=== PATIENT | male | born 1950 | race Caucasian/White ===

== ENCOUNTER 2019-10-14 08:43 | Outpatient (CLI) | payer MEDICARE, SELFPAY ==
--- NOTE | 2019-10-14 09:00 | NEURO_ITS ---
PATIENT NUMBER: [id number] DATE OF SERVICE: 10/14/2019 IMPRESSION: Patient complains of nocturnal paresthesia and numbness of hands. # Bilateral carpal tunnel syndrome of severe degree, left worse than right # Subtle evolving left ulnar neuropathy # Normal needle/EMG exam Nerve Conduction Studies Anti Sensory Summary Table Stim Site NR Peak (ms) P-T Amp (?V) Site1 Site2 Delta-P (ms) Dist (cm) Louie (m/s) Left Median Anti Sensory (2-3nd Digit) Wrist 4.3 11.1 Wrist 2-3nd Digit 4.3 14.0 33 Wrist 4.5 8.6 Wrist 2-3nd Digit 4.3 14.0 33 Right Median Anti Sensory (2-3nd Digit) Wrist 8.1 11.7 Wrist 2-3nd Digit 8.1 14.0 17 Wrist 8.9 22.1 Wrist 2-3nd Digit 8.1 14.0 17 Left Radial Anti Sensory (Base 1st Digit) Wrist 2.6 9.5 Wrist Base 1st Digit 2.6 0.0 Right Radial Anti Sensory (Base 1st Digit) Wrist 3.3 10.0 Wrist Base 1st Digit 3.3 0.0 Left Ulnar Anti Sensory (5th Digit) Wrist 3.9 23.6 Wrist 5th Digit 3.9 14.0 36 Right Ulnar Anti Sensory (5th Digit) Wrist 3.3 27.8 Wrist 5th Digit 3.3 14.0 42 Motor Summary Table Stim Site NR Onset (ms) O-P Amp (mV) Site1 Site2 Delta-0 (ms) Dist (cm) Louie (m/s) Left Median Motor (Abd Poll Brev) Wrist 9.6 0.8 Elbow Wrist 4.8 33.0 69 Elbow 4.8 0.6 Right Median Motor (Abd Poll Brev) Wrist 5.9 3.4 Elbow Wrist 6.5 30.0 46 Elbow 12.4 2.9 Left Peroneal Motor (Vastus Med) Ankle 4.7 1.5 Popit Ankle 6.0 31.0 52 Popit 10.7 2.3 Left Ulnar Motor (Abd Dig Minimi) Wrist 2.8 7.1 A Elbow Wrist 6.5 31.0 48 A Elbow 9.3 6.5 B Elbow Wrist 4.9 25.0 51 B Elbow 7.7 4.9 Right Ulnar Motor (Abd Dig Minimi) Wrist 3.2 4.2 A Elbow Wrist 6.2 32.0 52 A Elbow 9.4 3.2 F Wave Studies NR F-Lat (ms) L-R F-Lat (ms) Left Median (Mrkrs) (Abd Poll Brev) 25.67 3.98 Right Median (Mrkrs) (Abd Poll Brev) 29.65 3.98 Left Ulnar (Mrkrs) (Abd Dig Min) 32.97 6.65 Right Ulnar (Mrkrs) (Abd Dig Min) 26.31 6.65 EMG Side Muscle Nerve Root Ins Act Fibs Amp Dur Recrt Comment Right 1stDorInt Ulnar C8-T1 Nml Nml Nml Nml Nml Right Ext Indicis Radial (Post Int) C7-8 Nml Nml Nml Nml Nml Right Ext Digitorum Radial (Post Int) C7-8 Nml Nml Nml Nml Nml Right BrachioRad Radial C5-6 Nml Nml Nml Nml Nml Right PronatorTeres Median C6-7 Nml Nml Nml Nml Nml Right Abd Poll Brev Median C8-T1 Nml Nml Nml Nml Nml Right ABD Dig Min Ulnar C8-T1 Nml Nml Nml Nml Nml Left 1stDorInt Ulnar C8-T1 Nml Nml Nml Nml Nml Left ABD Dig Min Ulnar C8-T1 Nml Nml Nml Nml Nml Left Ext Indicis Radial (Post Int) C7-8 Nml Nml Nml Nml Nml Left Ext Digitorum Radial (Post Int) C7-8 Nml Nml Nml Nml Nml Left BrachioRad Radial C5-6 Nml Nml Nml Nml Nml Left PronatorTeres Median C6-7 Nml Nml Nml Nml Nml Left Abd Poll Brev Median C8-T1 Nml Nml Nml Nml Nml MTDD
== END 2019-10-14 08:44 | disposition home or self-care (01) ==
PROVIDERS: PCP Emergency Medicine; Visit Provider Psychiatry & Neurology Neurology
DX: R20.2 Paresthesia of skin (principal); G56.03 Carpal tunnel syndrome, bilateral upper limbs
CPT/HCPCS: 95886; 95911

== ENCOUNTER 2019-10-23 11:03 | Outpatient (CLI) | payer MEDICARE, SELFPAY ==
--- NOTE | ~2019-10-23 | US_ITS ---
EXAMINATION: US renal BI EXAM DATE: 10/23/2019 11:59 INDICATION: Kidney disease. TECHNIQUE: Multiple grayscale and Doppler images of the kidneys were obtained (by a technologist who performed the scan) and subsequently reviewed. Comparison is made to prior examination from 8. Correlation was made with CT scan 01/16/2018, 07/15/2018. FINDINGS: Right kidney: There is normal contour and echogenicity. It measures 11.1 x 6.1 x 5.3 centimeters. Fo kole region was measured which is isoechoic to the renal parenchyma, probably normal parenchymal tissu e with adjacent cyst measuring 1.3 cm. There is peripherally calcified lesion measuring 1.8 cm, also likely cyst previously imaged. There is no hydronephrosis. Left kidney: There is normal contour and echogenicity. It measures 10.9 x 6.5 x 6.1 centimeters. Th ere are no focal renal lesions identified. There is no hydronephrosis. Bladder unremarkable. Prostate measures up to 4.2 cm. IMPRESSION: 1. Right renal lesions likely cysts. Reviewed, dictated and finalized at location A. ECT MANAGER/DESIGN MANAGER
== END 2019-10-23 11:04 | disposition home or self-care (01) ==
LOC: ANHIMG 11:17
PROVIDERS: Visit Provider Family Medicine
DX: N28.9 Disorder of kidney and ureter, unspecified (principal); N08 Glomerular disorders in diseases classified elsewhere; N28.1 Cyst of kidney, acquired
CPT/HCPCS: 76775

== ENCOUNTER 2020-02-24 09:53 | Outpatient (CLI) | payer MEDICARE, SELFPAY ==
--- NOTE | 2020-02-24 11:00 | NEURO_ITS ---
Patient Number: [id number] Impression: # Complains of numbness of feet. # Neuropathy involving lower extremities. # Needle/EMG exam revealed neurogenic changes in bilateral EDB. # Clinical correlation recommended. Nerve Conduction Studies Anti Sensory Summary Table Stim Site NR Peak (ms) P-T Amp (?V) Site1 Site2 Delta-P (ms) Dist (cm) Louie (m/s) Left Sup Fibular Anti Sensory (Ant Lat Mall) 14 cm 4.1 16.1 14 cm Ant Lat Mall 4.1 16.0 39 Right Sup Fibular Anti Sensory (Ant Lat Mall) 14 cm 4.2 12.7 14 cm Ant Lat Mall 4.2 16.0 38 Left Sural Anti Sensory (Lat Mall) Calf 4.0 10.9 Calf Lat Mall 4.0 16.0 40 Right Sural Anti Sensory (Lat Mall) Calf 4.5 15.4 Calf Lat Mall 4.5 16.0 36 Motor Summary Table Stim Site NR Onset (ms) O-P Amp (mV) Site1 Site2 Delta-0 (ms) Dist (cm) Louie (m/s) Left Peroneal Motor (Vastus Med) Ankle 4.7 1.9 Popit Ankle 11.1 43.0 39 Popit 15.8 1.5 Right Peroneal Motor (Vastus Med) Ankle 4.7 2.0 Popit Ankle 10.2 40.0 39 Popit 14.9 1.7 Left Tibial Motor (Abd Sorenson Brev) Ankle 4.7 1.1 Knee Ankle 10.9 46.0 42 Knee 15.6 0.9 Right Tibial Motor (Abd Sorenson Brev) Ankle 4.8 2.9 Knee Ankle 11.4 46.0 40 Knee 16.2 2.1 F Wave Studies NR F-Lat (ms) L-R F-Lat (ms) Left Peroneal (Mrkrs) (EDB) 57.65 0.98 Right Peroneal (Mrkrs) (EDB) 58.63 0.98 Left Tibial (Mrkrs) (Abd Hallucis) 59.54 0.00 Right Tibial (Mrkrs) (Abd Hallucis) 59.54 0.00 EMG Side Muscle Nerve Root Ins Act Fibs Amp Dur Recrt Comment Right AntTibialis Dp Br Fibular L4-5 Nml Nml Nml Nml Nml Right Gastroc Tibial S1-2 Nml Nml Nml Nml Nml Right Fibularis Long Sup Br Fibular L5-S1 Nml Nml Nml Nml Nml Right Flex Dig Long Tibial L5-S2 Nml Nml Nml Nml Nml Right Ext Dig Brev Dp Br Fibular L5, S1 Nml Nml Nml Nml Reduced Left AntTibialis Dp Br Fibular L4-5 Nml Nml Nml Nml Nml Left Gastroc Tibial S1-2 Nml Nml Nml Nml Nml Left Fibularis Long Sup Br Fibular L5-S1 Nml Nml Nml Nml Nml Left Flex Dig Long Tibial L5-S2 Nml Nml Nml Nml Nml Left Ext Dig Brev Dp Br Fibular L5, S1 Nml Nml Nml Nml Reduced Right QuadratusFem QuadFemoris L4-5, S1 Nml Nml Nml Nml Nml Left QuadratusFem QuadFemoris L4-5, S1 Nml Nml Nml Nml Nml MTDD
== END 2020-02-24 09:54 | disposition home or self-care (01) ==
PROVIDERS: PCP Family Medicine; Visit Provider Psychiatry & Neurology Neurology
DX: R20.2 Paresthesia of skin (principal)
CPT/HCPCS: 95886; 95910

== ENCOUNTER 2020-05-13 10:53 | Outpatient (CLI) | payer MEDICARE, SELFPAY | END 2020-05-13 10:54 | disposition home or self-care (01) | LOC: ANHAUDIO 10:54 | PROVIDERS: PCP Family Medicine; Visit Provider Otolaryngology | DX: H90.3 Sensorineural hearing loss, bilateral (principal) | CPT/HCPCS: 92557; 92567 ==

== ENCOUNTER → 2021-02-03 02:29 | Outpatient (CLI) | payer MEDICARE, SELFPAY ==
[2021-02-03 18:15] LABS: SARS-CoV-2 RNA PCR Negative
== END ==
PROVIDERS: PCP Family Medicine; Visit Provider Internal Medicine Gastroenterology
DX: Z01.812 Encounter for preprocedural laboratory examination (principal); Z20.822 Contact with and (suspected) exposure to COVID-19
CPT/HCPCS: C9803; U0003; U0005

== ENCOUNTER 2021-02-06 00:57 | Day surgery (SDC) | payer MEDICARE, SELFPAY ==
[2021-01-24 14:31] VITALS: BMI 29.0
[2021-02-06 11:41] VITALS: BP 126/78; PULSE 55; RESP 18; TEMP 36.7; O2SAT 97
[2021-02-06] MEDS: LACTATED RINGERS 1,000 ML 150 ML IV CONT (11:46)
--- NOTE | 2021-02-06 11:47 | WPDANESEPPF ---
Anes - Initial Pre Proc Eval Procedure: Operation Date: 02/06/21 12:45 Proposed Procedures p Colonoscopy - Tito Britton MD Date/Time: 02/06/21 11:47 Surgeon: Tito Britton MD Pre Op Diagnosis: Occult gi bleed, positive cologuard Patient Data Age: 71 Gender: M Height: 1.85 m Weight: 94.3 kg Last Vital Signs Temp 36.7 C 02/06/21 11:41 Pulse 55 L 02/06/21 11:41 Resp 18 02/06/21 11:41 BP 126/78 02/06/21 11:41 Pulse Ox 97 02/06/21 11:41 Allergies Allergy/AdvReac Type Severity Reaction Status Date / Time No Known Allergies Allergy Mild Verified 02/06/21 11:40 Home Medications Medication Instructions Recorded Confirmed Type amlodipine 10 mg tablet 10 mg PO DAILY tablet 02/08/20 02/06/21 History lisinopril 20 mg tablet 20 mg PO DAILY tablet 02/08/20 02/06/21 History acetaminophen 500 mg capsule 500 mg PO Q6H PRN 06/09/20 02/06/21 History calcium carbonate-vitamin D3 1 tablet PO DAILY 01/24/21 02/06/21 History [Calcium 600 with Vitamin D3] folic acid 1 mg PO DAILY 01/24/21 02/06/21 History rosuvastatin 40 mg PO DAILY 01/24/21 02/06/21 History Patient hx anesthesia problems: none Family hx anesthesia problems: none PMFSH Past Medical History Medical History (Updated 02/06/21 @ 11:51 by Didier Galvan MD) Bilateral high frequency sensorineural hearing loss High blood pressure High cholesterol Surgical History Surgical History History of back surgery History of bladder surgery History of knee surgery Hx of appendectomy Social History Social History Smoking status: Former smoker Tobacco type: cigarettes Smokeless tobacco user: chewing tobacco Alcohol intake: never Substance use type: does not use Gender identity (if verbalized by the patient): Male Spiritual care concerns: No Anes - Eval Final PreProcedure Day of Procedure 02/06/21 11:47 Patient weight: overweight Heart: regular rate and rhythm Lungs: clear to auscultation and normal air movement Airway: Mallampati scale class II Neurological: alert and oriented Last oral intake: >/= 8 hours ASA classification: II Emergent: no Anesthetic plan: proceed Anesthesia type and monitoring: general GIVS Informed Consent: The patient's anesthetic plan and its attendant risks and benefits were discussed with the patient/family/POA. Questions were solicited and answers provided to the satisfaction of the patient/family/POA.
--- NOTE | 2021-02-06 12:35 | PM.HPGS ---
History of Present Illness History of Present Illness Consent: Risks, benefits, and alternatives have been discussed and questions answered. Patient agrees to proceed with procedure. Chief complaint: Occult gi bleed, positive cologuard Narrative: Magdiel Luevano is a 71 year old male here for first colonoscopy, had + cologuard Review of Systems Constitutional: Constitutional: Denies headache(s) and Denies weakness Eyes: Eyes: Denies blurry vision ENT: Reports Normal hearing present, Denies headache(s) and Denies neck pain Cardiovascular: Cardiovascular: Denies chest pain and Denies dyspnea Respiratory: Respiratory: Denies dyspnea Gastrointestinal: Gastrointestinal: Reports no additional gastrointestinal complaints Genitourinary: Genitourinary: Denies dysuria Musculoskeletal: Musculoskeletal: Denies neck pain Integumentary/Breasts: Skin/Breast: Denies dry skin Neurologic: Reports Normal hearing present, Denies headache(s) and Denies weakness Psychiatric: Psychiatric: Denies anxiety Endocrine: Endocrine: Denies change in body appearance Hematologic/Lymphatic: Hematologic/Lymphatic: Denies easy bleeding Allergic/Immunologic: Allergic/Immunologic: Denies urticaria PMFSH Past Medical History Medical History (Updated 02/06/21 @ 12:35 by Tito Britton MD) Bilateral high frequency sensorineural hearing loss High blood pressure High cholesterol Positive colorectal cancer screening using Cologuard test Surgical History Surgical History History of back surgery History of bladder surgery History of knee surgery Hx of appendectomy Social History Social History Smoking status: Former smoker Tobacco type: cigarettes Smokeless tobacco user: chewing tobacco Alcohol intake: never Substance use type: does not use Gender identity (if verbalized by the patient): Male Spiritual care concerns: No Meds Home Medications and Allergies Home Medications Medication Instructions Recorded Confirmed Type amlodipine 10 mg tablet 10 mg PO DAILY tablet 02/08/20 02/06/21 History lisinopril 20 mg tablet 20 mg PO DAILY tablet 02/08/20 02/06/21 History acetaminophen 500 mg capsule 500 mg PO Q6H PRN 06/09/20 02/06/21 History calcium carbonate-vitamin D3 1 tablet PO DAILY 01/24/21 02/06/21 History [Calcium 600 with Vitamin D3] folic acid 1 mg PO DAILY 01/24/21 02/06/21 History rosuvastatin 40 mg PO DAILY 01/24/21 02/06/21 History Allergies Allergy/AdvReac Type Severity Reaction Status Date / Time No Known Allergies Allergy Mild Verified 02/06/21 11:40 Vital Signs Vital Signs - 24 hr 02/06/21 11:41 Temperature 98.1 F Pulse Rate 55 L Respiratory Rate 18 Blood Pressure 126/78 Pulse Oximetry 97 Exam Const: General: comfortable and no acute distress HENMT: General nose exam: Normal nares present Eyes: General: appearance normal, both eyes and all related structures Neck: Neck: no JVD Resp: Auscultation: clear to auscultation bilaterally Cardio: Rate: regular rate Rhythm: regular rhythm GI: Inspection: non-distended GI Palp: Yes Soft to palpation Skin: General skin exam: normal color Neuro: General: gait normal Speech: normal speech Extrem: General: normal to inspection Psych: Mental Status: mental status grossly normal Assessment and Plan Assessment and plan (1) Positive colorectal cancer screening using Cologuard test: Code(s): R19.5 - Other fecal abnormalities Status: Acute Assessment and Plan: colonoscopy
[2021-02-06 13:02] VITALS: BP 97/64; PULSE 52; RESP 16; O2SAT 97
[2021-02-06 13:12] VITALS: BP 112/77; PULSE 54; RESP 20; O2SAT 100
[2021-02-06 13:22] VITALS: BP 122/79; PULSE 56; RESP 22; O2SAT 98
== END 2021-02-06 13:34 | disposition home or self-care (01) ==
PROVIDERS: PCP Family Medicine; Visit Provider Internal Medicine Gastroenterology
PROC: 0DJD8ZZ Inspection of Lower Intestinal Tract, Via Natural or Artificial Opening Endoscopic (ICD-10-PCS; CPT 45378; principal; 2021-02-06 12:45)
DX: R19.5 Other fecal abnormalities (principal); D12.2 Benign neoplasm of ascending colon; D12.3 Benign neoplasm of transverse colon; K63.5 Polyp of colon; K57.30 Diverticulosis of large intestine without perforation or abscess without bleeding; K64.8 Other hemorrhoids; I10 Essential (primary) hypertension; E78.00 Pure hypercholesterolemia, unspecified; Z87.891 Personal history of nicotine dependence
CPT/HCPCS: 45380; 45385; 88305; C9803; J2704; J7120; U0003; U0005

== ENCOUNTER 2021-04-20 11:44 | Outpatient (CLI) | payer MEDICARE, SELFPAY ==
--- NOTE | ~2021-04-20 | XR_ITS ---
XR knee LT 3V 04/20/2021 12:09 Indication: Status post fall downstairs. Procedure: 3 views of the left knee Comparison: No prior studies for comparison. Findings: There is moderate osteoarthritis of the left knee. Moderate joint effusion. No acute fractu re or traumatic malalignment. No significant soft tissue abnormality. No foreign bodies. Impression: 1: Moderate osteoarthritis of the left knee. 2: Moderate joint effusion. Reviewed, dictated and finalized at location A. Impression: 1: Moderate osteoarthritis of the left knee. 2: Moderate joint effusion.
== END 2021-04-20 11:45 | disposition home or self-care (01) ==
LOC: ANHIMG 11:47
PROVIDERS: PCP Internal Medicine; Visit Provider Nurse Practitioner
DX: M17.12 Unilateral primary osteoarthritis, left knee (principal); M25.462 Effusion, left knee
CPT/HCPCS: 73562

== ENCOUNTER 2021-07-11 09:32 | Outpatient (CLI) | payer MEDICARE, SELFPAY ==
--- NOTE | ~2021-07-11 | MR_ITS ---
EXAMINATION: MR cervical spine wo/w con EXAM DATE: 07/11/2021 10:40 INDICATION: G95.9 - Disease of spinal cord, unspecified . TECHNIQUE: Multi-sequential, multiplanar MR images of the cervical spine were obtained without contra st. Axial T2, axial T2 MERGE sequence. Sagittal T1, T2, T2 fat saturation images also obtained. Th ere is no prior study for comparison. FINDINGS: Spinal cord being indented at mid cervical levels without cord edema, no acute cord compre ssion. There is moderate to severe disc disease C4-5 and C6-7, moderate at C3-4 and C5-6. Cervicomedu llary junction is normal in appearance. There are no suspicious marrow signal abnormalities. Paraspin al soft tissue is unremarkable. There is 2 mm retrolisthesis C4 on C5. Level by level evaluation: C2-C3: Disc does not extend beyond the endplate margin. Uncovertebral joint arthropathy: None. Facet joint arthropathy: Mild to moderate right, mild left. Neural foraminal stenosis: Mild right. Central canal stenosis: No stenosis. C3-C4: There is a minimal diffuse disc bulge asymmetric to the right Uncovertebral joint arthropathy: Moderate to severe right, moderate left. Facet joint arthropathy: Moderate to severe right, moderate left. Neural foraminal stenosis: Severe right, moderate left. Central canal stenosis: Mild. C4-C5: There is a mild diffuse disc bulge. Uncovertebral joint arthropathy: Moderate to severe bilateral. Facet joint arthropathy: Moderate bilateral. Neural foraminal stenosis: Severe bilateral, right greater than left. Central canal stenosis: Mild . Central canal measures 7 mm in mid sagittal AP diameter . C5-C6: There is a minimal diffuse disc bulge. Uncovertebral joint arthropathy: Moderate bilateral. Facet joint arthropathy: Moderate bilateral. Neural foraminal stenosis: Mild bilateral. Central canal stenosis: Minimal. C6-C7: There is a mild diffuse disc bulge. Uncovertebral joint arthropathy: Moderate to severe bilateral. Facet joint arthropathy: Moderate bilateral. Neural foraminal stenosis: Mild to moderate left, mild right. Central canal stenosis: Mild. C7-T1: There is a mild diffuse disc bulge. Uncovertebral joint arthropathy: Moderate bilateral. Facet joint arthropathy: Mild to moderate right, mild left. Neural foraminal stenosis: Mild right. Central canal stenosis: Mild. IMPRESSION: Overall moderate to severe cervical spondylosis with significant neural foraminal stenosi s C3-4 and C4-5. Reviewed, dictated and finalized at location A. RATING MACHINE TENDER IMPRESSION: Overall moderate to severe cervical spondylosis with significant ne ural foraminal stenosis C3-4 and C4-5.
[2021-07-11 10:01] LABS: Estimated Glomerular Filt Rate > 60
== END 2021-07-11 09:33 | disposition home or self-care (01) ==
LOC: ANHIMG 09:36
PROVIDERS: PCP Internal Medicine; Visit Provider Psychiatry & Neurology Neurology
DX: G95.9 Disease of spinal cord, unspecified (principal); M47.892 Other spondylosis, cervical region
CPT/HCPCS: 72156; A9577

== ENCOUNTER 2021-08-17 10:18 | Outpatient (CLI) | payer MEDICARE, SELFPAY ==
--- NOTE | 2021-08-17 11:00 | NEURO_ITS ---
Impression: # Complains of increasing pain and numbness of hands. # Bilateral Carpal Tunnel Syndrome, right severe and mild left. # Right ulnar neuropathy across the elbow. # Abnormal needle/EMG exam. Nerve Conduction Studies Anti Sensory Summary Table Stim Site NR Peak (ms) P-T Amp (?V) Site1 Site2 Delta-P (ms) Dist (cm) Louie (m/s) Left Median Anti Sensory (2-3nd Digit) NO RESPONSE Wrist NR Wrist 2-3nd Digit 14.0 Wrist NR Wrist 2-3nd Digit 14.0 Right Median Anti Sensory (2-3nd Digit) Wrist 6.1 12.9 Wrist 2-3nd Digit 6.1 14.0 23 Wrist 7.0 27.1 Wrist 2-3nd Digit 6.1 14.0 23 Left Radial Anti Sensory (Base 1st Digit) Wrist 2.9 14.9 Wrist Base 1st Digit 2.9 0.0 Right Radial Anti Sensory (Base 1st Digit) Wrist 3.6 8.3 Wrist Base 1st Digit 3.6 0.0 Left Ulnar Anti Sensory (5th Digit) Wrist 3.5 15.3 Wrist 5th Digit 3.5 14.0 40 Right Ulnar Anti Sensory (5th Digit) Wrist 3.8 9.6 Wrist 5th Digit 3.8 14.0 37 Motor Summary Table Stim Site NR Onset (ms) O-P Amp (mV) Site1 Site2 Delta-0 (ms) Dist (cm) Louie (m/s) Left Median Motor (Abd Poll Brev) Wrist 4.4 0.7 Elbow Wrist 6.9 32.0 46 Elbow 11.3 2.2 Right Median Motor (Abd Poll Brev) Wrist 10.7 2.2 Elbow Wrist 7.3 31.0 42 Elbow 18.0 2.1 Left Ulnar Motor (Abd Dig Minimi) Wrist 3.1 6.9 A Elbow Wrist 6.0 32.0 53 A Elbow 9.1 5.9 Right Ulnar Motor (Abd Dig Minimi) Wrist 3.1 4.9 A Elbow Wrist 7.0 33.0 47 A Elbow 10.1 3.0 B Elbow Wrist 4.4 24.0 55 B Elbow 7.5 3.3 F Wave Studies NR F-Lat (ms) L-R F-Lat (ms) Left Median (Mrkrs) (Abd Poll Brev) 32.87 0.64 Right Median (Mrkrs) (Abd Poll Brev) 33.51 0.64 Left Ulnar (Mrkrs) (Abd Dig Min) 31.20 2.19 Right Ulnar (Mrkrs) (Abd Dig Min) 29.01 2.19 EMG Side Muscle Nerve Root Ins Act Fibs Amp Dur Recrt Comment Right 1stDorInt Ulnar C8-T1 Nml Nml Nml Nml Nml Right Ext Indicis Radial (Post Int) C7-8 Nml Nml Nml Nml Nml Right Ext Digitorum Radial (Post Int) C7-8 Nml Nml Nml Nml Nml Right BrachioRad Radial C5-6 Nml Nml Nml Nml Nml Right PronatorTeres Median C6-7 Nml Nml Nml Nml Nml Right Abd Poll Brev Median C8-T1 Nml Nml Incr >12ms Reduced Left 1stDorInt Ulnar C8-T1 Nml Nml Nml Nml Nml Left Ext Indicis Radial (Post Int) C7-8 Nml Nml Nml Nml Nml Left Ext Digitorum Radial (Post Int) C7-8 Nml Nml Nml Nml Nml Left BrachioRad Radial C5-6 Nml Nml Nml Nml Nml Left PronatorTeres Median C6-7 Nml Nml Nml Nml Nml Left Abd Poll Brev Median C8-T1 Nml Nml Incr >12ms Reduced MTDD
== END 2021-08-17 10:19 | disposition home or self-care (01) ==
PROVIDERS: PCP Internal Medicine; Visit Provider Psychiatry & Neurology Neurology
DX: G56.03 Carpal tunnel syndrome, bilateral upper limbs (principal); G56.21 Lesion of ulnar nerve, right upper limb
CPT/HCPCS: 95886; 95911

== ENCOUNTER → 2021-09-23 00:19 | Outpatient (CLI) | payer MEDICARE, SELFPAY ==
[2021-09-23 20:23] LABS: SARS-CoV-2 RNA PCR Negative
[2021-09-25 00:37] LABS: Influenza A QL RT-PCR Negative (Negative); Influenza B QL RT-PCR Negative (Negative)
== END ==
PROVIDERS: PCP Internal Medicine; Visit Provider Internal Medicine
DX: R68.89 Other general symptoms and signs (principal); Z20.822 Contact with and (suspected) exposure to COVID-19
CPT/HCPCS: 87502; C9803; U0003; U0005

== ENCOUNTER 2021-11-13 10:48 | Outpatient (CLI) | payer MEDICARE, SELFPAY ==
[2021-11-13 11:18] LABS: Alanine Aminotransferase 34 U/L (4-50); Albumin Level 4.4 g/dL (3.5-5.1); Alkaline Phosphatase 73 U/L (38-126); Anion Gap 6 mmol/L (8-16); Aspartate Amino Transferase 33 U/L (17-59); Bilirubin,Total 0.5 mg/dL (0.2-1.3); Blood Urea Nitrogen 9 mg/dL (9-20); Calcium 9.7 mg/dL (8.4-10.2); Carbon Dioxide 31 mmol/L (22-30); Chloride 102 mmol/L (98-107); Cholesterol 148 mg/dL (0-200); Estimated Glomerular Filt Rate > 60; Glucose 106 mg/dL (65-110); HDL Direct 43 mg/dL; Potassium 4.8 mmol/L (3.4-5.0); Sodium 139 mmol/L (137-145); Triglycerides 217 mg/dL (<150)
[2021-11-13 11:29] LABS: LDL Cholesterol Direct 72 mg/dL
[2021-11-13 11:48] LABS: Prostate Specific Antigen 1.3 ng/mL (< OR = 4.0)
== END 2021-11-13 10:49 | disposition home or self-care (01) ==
PROVIDERS: PCP Internal Medicine; Visit Provider Internal Medicine
DX: I10 Essential (primary) hypertension (principal); Z79.899 Other long term (current) drug therapy; Z12.5 Encounter for screening for malignant neoplasm of prostate; E78.5 Hyperlipidemia, unspecified
CPT/HCPCS: 36415; 80053; 80061; 84153; G0103

== ENCOUNTER 2021-11-20 14:39 | Outpatient (CLI) | payer MEDICARE, SELFPAY ==
--- NOTE | ~2021-11-20 | MR_ITS ---
EXAMINATION: MR brain/brain stem wo/w con EXAM DATE: 11/20/2021 15:57 INDICATION: H91.90 - Unspecified hearing loss, unspecified ear . TECHNIQUE: Multi-sequential, multiplanar MR images of the brain, brainstem, internal auditory canals were obtained without contrast. Whole brain sagittal T1, axial diffusion, gradient echo (T2*), T1, T 2, FLAIR sequences obtained. High resolution coronal 3-D FIESTA, coronal T1 FSE, axial T1 FSPGR of t he internal auditory canals. Patient was then injected with 20 cc Multihance contrast intravenously. Postcontrast axial and coronal T1 weighted whole brain, axial and coronal high resolution T1 IAC seq uences obtained. There are no prior studies for comparison. FINDINGS: No evidence of mastoid or middle ear opacification. The 7th/8th cranial nerve complexes a re symmetric, normal in course and caliber. No cerebellopontine angle masses. Posterior fossa unrem arkable. There are no areas of restricted diffusion to suggest acute infarction. There is no acute hemorrhage seen on the T2*, a hemosiderin sensitive sequence. No intraparenchymal brain mass lesion. There are scattered periventricular and subcortical T2/FLAIR signal hyperintensities, nonspecific but probably related to small vessel ischemic disease (microangiopathy). There is prominence of the sulci and v entricles related to cerebral atrophy. There are no extra-axial collections. Flow voids are seen i n the cerebral arteries on the T2-weighted sequences consistent with their expected patency. Patient has had bilateral ocular lens surgery. Soft tissue is unremarkable. There are no areas of abnormal enhancement on the postcontrast images. IMPRESSION: 1. No acute intracranial findings. 2. 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 Reviewed, dictated and finalized at location G.
== END 2021-11-20 14:40 | disposition home or self-care (01) ==
PROVIDERS: PCP Internal Medicine; Visit Provider Internal Medicine
DX: H91.90 Unspecified hearing loss, unspecified ear (principal); R93.0 Abnormal findings on diagnostic imaging of skull and head, not elsewhere classified
CPT/HCPCS: 70553; A9577

== ENCOUNTER 2022-02-17 10:37 | Outpatient (CLI) | payer MEDICARE, SELFPAY ==
[2022-02-17 11:21] LABS: Basophils Absolute Auto 0.1 K/mm3 (0.0-0.1); Basophils Percent Auto 0.8 % (0.2-1.2); Eosinophils Absolute Auto 0.3 K/mm3 (0-0.3); Eosinophils Percent Auto 3.3 % (0-4.4); Hematocrit 43.6 % (42.0-52.0); Hemoglobin 14.3 g/dL (14.0-18.0); Immature Granulocyte Absolute 0.02 K/mm3 (0.00-0.031); Immature Granulocyte Percent A 0.2 % (0-0.5); Lymphocytes Absolute Auto 3.36 K/mm3 (0.9-3.2); Lymphocytes Percent Auto 34.1 % (18.3-44.2); Mean Corpuscular HGB Conc 32.8 g/dl (32-36); Mean Corpuscular Hemoglobin 29.1 pg (26-34); Mean Corpuscular Volume 88.8 fl (80-100); Mean Platelet Volume 10.2 fl (7.4-10.4); Monocytes Percent Auto 10.3 % (2.6-8.5); Neutrophils Absolute Auto 5.1 K/mm3 (1.3-6.7); Neutrophils Percent Auto 51.3 % (45.5-73.1); Platelet Count Result 250 k/mm3 (150-375); Red Blood Count 4.91 M/mm3 (4.6-6.20); Red Cell Distribution Width 12.6 % (11.5-14.5); White Blood Count 9.8 K/mm3 (4.5-10.0)
[2022-02-17 11:27] LABS: Alanine Aminotransferase 34 U/L (6-50); Albumin Level 4.6 g/dL (3.5-5.1); Alkaline Phosphatase 66 U/L (38-126); Anion Gap 5 mmol/L (8-16); Aspartate Amino Transferase 34 U/L (17-59); Bilirubin,Total 0.5 mg/dL (0.2-1.3); Blood Urea Nitrogen 11 mg/dL (9-20); Calcium 8.8 mg/dL (8.4-10.2); Carbon Dioxide 27 mmol/L (22-30); Chloride 104 mmol/L (98-107); Estimated Glomerular Filt Rate > 60; Glucose 97 mg/dL (65-110); Potassium 3.9 mmol/L (3.4-5.0); Sodium 136 mmol/L (137-145)
== END 2022-02-17 10:38 | disposition home or self-care (01) ==
LOC: ANHLAB 10:41
PROVIDERS: PCP Internal Medicine; Visit Provider Internal Medicine Cardiovascular Disease
DX: I35.0 Nonrheumatic aortic (valve) stenosis (principal); Z01.810 Encounter for preprocedural cardiovascular examination
CPT/HCPCS: 36415; 80053; 85025

== ENCOUNTER 2023-08-23 02:54 | Day surgery (SDC) | payer MEDICARE, SELFPAY ==
--- NOTE | 2023-08-16 11:54 | PC.NURSE ---
Report to the Outpatient Waiting Room, entrance under the green pavilion located off [facility], at time _0815 on date _08/23/23 . Planned Procedure Time: __1015 . Time changes happen often and if your time is changed the preop area will call you the afternoon before. - You and your visitor will be asked to self-screen and do not enter if you have any COVID symptoms. - A mask is optional within the hospital at this time. NOTHING TO EAT OR DRINK 8 HOURS PRIOR TO SURGERY Take the following medications with a SIP of water the morning of surgery: AMLODIPINE DO NOT STOP ANY OF YOUR OTHER PRESCRIPTION MEDICATIONS PRIOR TO SURGERY ?EXCEPT THE FOLLOWING Medications to discontinue per physician ASPIRIN PER DR JONES Please no make-up, nail romansh, hairspray, perfume, deodorant, or body powder the day of surgery. No jewelry (including any body piercings) or valuables the day of surgery, leave them at home. Please take a shower or bath the night before, or the morning of, surgery with an antibacterial soap. Wear comfortable, loose fitting clothing. Children are encouraged to wear pajamas. - Jewelry must be removed prior to entering the operating room. Rings and piercings that are not removed may be cut off. - The hospital will not accept responsibility for valuables. - Please leave all valuables, including medications, at home the day of surgery. If you are going home after surgery, a licensed driver trainee must drive you home. - NO public transportation without another adult if you receive anesthesia. - We recommend that an adult stay with you for 24 hours following discharge. - We also recommend that you do not drive, make important decision, drink alcoholic beverages, or take any drugs that were not prescribed by your health care provider for at least 24 hours after your discharge time. For Pediatric surgeries, we recommend two adults accompany the child home. Follow any additional instructions given to you from your surgeon. If you or anyone in your household have experienced Covid symptoms in the past week, please notify your surgeon or the nurse liaison at the phone number below for possible testing. Telephone instructions given to __PATIENT and asked if any additional questions and then verbalized understanding. Patient advised to call surgeon office or pre surgery nurse liaison [phone] if any additional questions.
--- NOTE | 2023-08-23 06:54 | PM.HPGS ---
History of Present Illness History of Present Illness Chief complaint: left carp tunnel synd of wrist, ulnar neur at elb Narrative: Patient seen and examined in pre-operative holding area. No interval change in medical history or symptoms. Patient recalls previous discussion of benefits and alternatives to procedure. Continues to desire to proceed with left ectr poss open and left cubital tunnel release and concurrent right carpal tunnel steroid injection. Reviewed procedure, post-op expectations and risks including but not limited to bleeding, infection, injury to tendon/nerve/vessel, decreased hand function, stiffness, RSD, no change or worsening of symptoms. I discussed the possible use of assistants and their participation in the case. Patient stated understanding and signed the consent form wishing to proceed. Review of Systems Review of Systems: All systems reviewed & are unremarkable except as noted in HPI and below PMFSH Past Medical History Medical History (Updated 07/09/23 @ 12:12 by Ed Morgan MD) Allergies Arthritis Bilateral high frequency sensorineural hearing loss Degenerative arthritis of knee, bilateral Effusion, left knee History of SCC (squamous cell carcinoma) of skin Positive colorectal cancer screening using Cologuard test Surgical History Surgical History (Updated 09/05/22 @ 07:20 by Connor Rahman MD) History of aortic valve replacement (05/2022) History of back surgery History of bladder surgery History of carpal tunnel surgery of right wrist (10/2021) History of knee surgery Hx of appendectomy Hx of cataract surgery Family History Family History Father Lung cancer Mother Diabetes mellitus Hypertension Heart problem Sibling Cancer Social History Social History (Updated 07/09/23 @ 11:55 by Cecilia Paredes MA) Smoking packs per day: 0.5 Smoking cigarettes per day: 10.0 Years smoked: 30 Smoking pack-years: 15.00 Smoking status: Former smoker Tobacco type: cigarettes Smokeless tobacco user: chewing tobacco Second hand tobacco smoke exposure: Yes Smoking end date: 09/02/18 Alcohol intake: never Substance use: never Substance use type: does not use Lack of Transportation: No Lack of Food: Never True Current Housing: I Have Housing Concerned About Future Housing: No Difficulty Paying Gas/Electric Bills: No Difficulty Paying for Meds: No Currently Unemployed: No Education: High School Diploma/GED Difficulty w/ Childcare or Family Care: No Living arrangements: alone Occupation/Education: retired Gender identity (if verbalized by the patient): Male Spiritual care concerns: No Meds Home Medications and Allergies Home Medications Medication Instructions Recorded Confirmed Type rosuvastatin 40 mg tablet 40 mg PO DAILY 01/24/21 08/23/23 History aspirin 81 mg capsule 81 mg PO DAILY 09/05/22 08/23/23 History amlodipine 10 mg tablet 10 mg PO DAILY #90 tabs 04/21/23 08/23/23 Rx lisinopril 20 mg tablet See Rx Instructions .Route 07/17/23 08/23/23 Rx .COMPLEX #90 tabs Allergies Allergy/AdvReac Type Severity Reaction Status Date / Time No Known Allergies Allergy Mild Verified 08/23/23 08:29 Exam Narrative: unchanged Assessment and Plan Assessment and plan (1) Cubital tunnel syndrome on left: Code(s): G56.22 - Lesion of ulnar nerve, left upper limb Status: Acute Assessment and Plan: as above (2) Bilateral carpal tunnel syndrome: Code(s): G56.03 - Carpal tunnel syndrome, bilateral upper limbs Status: Acute
--- NOTE | 2023-08-23 06:55 | P.OP_ITS ---
Procedure Note - Detailed Date of Procedure 08/23/23 Pre-op Diagnosis b/l cts and right cubital tunnel Post-op Diagnosis Same Procedure Performed right ectr and right CuTR and left carpal tunnel steroid injection Surgeon Ed Morgan MD Anesthesia [facility] [place] Billing Surgery - Charge Forward: Surgery Billing ([id number],59 [id number],59 [id number])
--- NOTE | 2023-08-23 06:55 | W.PM.PROC2 ---
Procedure Note - Detailed Date of Procedure 08/23/23 Pre-op Diagnosis b/l cts and right cubital tunnel Post-op Diagnosis Same Procedure Performed right ectr and right CuTR and left carpal tunnel steroid injection Surgeon Ed Morgan MD Anesthesia [facility] [place] Billing Surgery - Charge Forward: Surgery Billing ([id number],59 [id number],59 [id number])
[2023-08-23 08:30] VITALS: BP 131/70; PULSE 51; RESP 16; TEMP 37; O2SAT 100
[2023-08-23] MEDS: LACTATED RINGERS 1,000 ML 30 ML IV CONT (08:40)
--- NOTE | 2023-08-23 08:52 | WPDANESEPPF ---
Anes - Initial Pre Proc Eval Procedure: Operation Date: 08/23/23 10:00 Proposed Procedures p Left Endoscopic Carpal Tunnel Release, Possible Open, Left Cubital Tunnel Release, Right Carpal Tunnel Steroid Injection - Ed Morgan MD Date/Time: 08/23/23 08:52 Surgeon: Ed Morgan MD Pre Op Diagnosis: left carp tunnel synd of wrist, ulnar neur at elb Patient Data Age: 73 Gender: M Height: 1.85 m Weight: 100 kg Last Vital Signs Temp 37.0 C 08/23/23 08:30 Pulse 51 L 08/23/23 08:30 Resp 16 08/23/23 08:30 BP 131/70 08/23/23 08:30 Pulse Ox 100 08/23/23 08:30 O2 Del Method Room Air 08/23/23 08:30 Allergies Allergy/AdvReac Type Severity Reaction Status Date / Time No Known Allergies Allergy Mild Verified 08/23/23 08:29 Home Medications Medication Instructions Recorded Confirmed Type rosuvastatin 40 mg tablet 40 mg PO DAILY 01/24/21 08/23/23 History aspirin 81 mg capsule 81 mg PO DAILY 09/05/22 08/23/23 History amlodipine 10 mg tablet 10 mg PO DAILY #90 tabs 04/21/23 08/23/23 Rx lisinopril 20 mg tablet See Rx Instructions .Route 07/17/23 08/23/23 Rx .COMPLEX #90 tabs Patient hx anesthesia problems: none Family hx anesthesia problems: none Results Review: All pre-operative results and documents have been reviewed as part of the pre-operative evaluation. [facility] Past Medical History Medical History Allergies Arthritis Bilateral high frequency sensorineural hearing loss Degenerative arthritis of knee, bilateral Effusion, left knee History of SCC (squamous cell carcinoma) of skin Positive colorectal cancer screening using Cologuard test Surgical History Surgical History History of aortic valve replacement (05/2022) History of back surgery History of bladder surgery History of carpal tunnel surgery of right wrist (10/2021) History of knee surgery Hx of appendectomy Hx of cataract surgery Family History Family History Father Lung cancer Mother Diabetes mellitus Hypertension Heart problem Sibling Cancer Social History Social History Smoking packs per day: 0.5 Smoking cigarettes per day: 10.0 Years smoked: 30 Smoking pack-years: 15.00 Smoking status: Former smoker Tobacco type: cigarettes Smokeless tobacco user: chewing tobacco Second hand tobacco smoke exposure: Yes Smoking end date: 09/02/18 Alcohol intake: never Substance use: never Substance use type: does not use Lack of Transportation: No Lack of Food: Never True Current Housing: I Have Housing Concerned About Future Housing: No Difficulty Paying Gas/Electric Bills: No Difficulty Paying for Meds: No Currently Unemployed: No Education: High School Diploma/GED Difficulty w/ Childcare or Family Care: No Living arrangements: alone Occupation/Education: retired Gender identity (if verbalized by the patient): Male Spiritual care concerns: No Anes - Eval Final PreProcedure Day of Procedure 08/23/23 08:52 Patient weight: overweight Heart: regular rate and rhythm Lungs: decreased breath sounds Airway: Mallampati scale class II Neurological: alert and oriented Last oral intake: >/= 8 hours ASA classification: III Emergent: no Anesthetic plan: proceed Anesthesia type and monitoring: general GIVS and standard monitoring Results Review: All pre-operative results and documents have been reviewed as part of the pre-operative evaluation. Informed Consent: The patient's anesthetic plan and its attendant risks and benefits were discussed with the patient/family/POA. Questions were solicited and answers provided to the satisfaction of the patient/family/POA.
--- NOTE | 2023-08-23 08:55 | P.OP_ITS ---
Procedure Note - Detailed Date of Procedure 08/23/23 Pre-op Diagnosis b/l cts and left cubital tunnel syndrome Post-op Diagnosis Same Procedure Performed left ectr and CuTR and right carpal tunnel steroid injection Surgeon Ed Morgan MD Anesthesia [facility] Description of Procedure INFORMED CONSENT: The patient was seen and examined and marked in the pre-op area.? The patient signed the consent form. PROCEDURE IN DETAIL:The patient taken back to OR on the stretcher in supine position. Time out performed with anesthesia, surgeon and staff agreeing on patient's name site and surgery to be performed SCDs were placed on the lower extremities and inflated. A tourniquet was placed on {left} upper extremity and antibiotics given IV After anesthesia administered sedation I injected {10}cc 1%lido with epi and 0.5% marcaine plain at the operative sites The?{left upper extremity}?was prepped and draped in sterile fashion the??{left upper extremity} was? exsanguinated with Esmarch bandage and tourniquet inflated to 250mmHg I made a transverse incision in the {left} volar distal wrist crease through skin and dermis with 15 blade scalpel.? Littler scissors spread down to antebrachial fascia. A small incision was made in antebrachial fascia allowing access to Carpal tunnel. I proceeded with sequential dilation staying in line with the ring finger and hugging the hook of the hamate.? I then used the synovial elevator to free any adhesions from the underside of the transverse carpal ligament. Next I was able to insert the Microaire endoscopic carpal tunnel device with direct visualization of the transverse fibers on the monitor and proceeded with complete segmental retrograde release of the ligament in its entirety.? I irrigated with normal saline and closed with 4-0 monocryl for dermis and subcuticular closure. I next proceeded with making a longitudinal incision between two heads for flexor carpi ulnaris at end of {left} cubital tunnel with 15 blade scalpel.? Littler scissors were used to spread down to FCU fascia.? An incision was made in FCU fascia and ulnar nerve identified exiting cubital tunnel.? I proceeded with complete retrograde release of the cubital tunnel including 7cm proximal for the intermuscular septum.? The nerve appeared healthy with visible vaso ne rvorum.? There was no subluxation on full elbow range of motion. ? I irrigated with normal saline and closure with 4-0 monocryl for dermis and subcuticular. I then injected 0.7cc betamethasone 6mg/ml and 0.3cc 1%lido plain into right carpal tunnel under sterile conditions. A dressing of Dermabond, 4x4, terrance, and a volar and posterior elbow was applied for patient safety, security, and comfort and secured with an malini bandage after the tourniquet was let down noting the hand was warm and well perfused. The patient was then awaken from anesthesia and transferred to the recovery room in stable condition.? Complications - none EBL- 0cc Disposition - home in stable conditions [facility] Billing Surgery - Charge Forward: Surgery Billing ([id number], [id number] and [id number],59 and [id number],59)
[2023-08-23] MEDS: ceFAZolin 2 GM/D5W 50 ML 2 GM/50 ML BAG IVPB (09:16)
[2023-08-23] MEDS: BETAMETHASONE SOD PHOS/ACETATE 30 MG/5 ML VIAL IM (09:31)
[2023-08-23] MEDS: LIDO 1%/EPINEPHRINE 1:100,000 50 ML VIAL INFILTRATE (09:33)
[2023-08-23 09:51] VITALS: BP 95/64; PULSE 48; RESP 16; O2SAT 96
[2023-08-23 10:19] VITALS: BP 124/73; PULSE 45; RESP 16
== END 2023-08-23 10:45 | disposition home or self-care (01) ==
PROVIDERS: PCP Family Medicine Adolescent Medicine; Visit Provider Plastic Surgery
PROC: 01N54ZZ Release Median Nerve, Percutaneous Endoscopic Approach (ICD-10-PCS; CPT 29848; principal; 2023-08-23 10:00)
DX: G56.03 Carpal tunnel syndrome, bilateral upper limbs (principal); G56.22 Lesion of ulnar nerve, left upper limb; Z79.4 Long term (current) use of insulin; Z79.82 Long term (current) use of aspirin; F17.220 Nicotine dependence, chewing tobacco, uncomplicated
CPT/HCPCS: 29848; 20526; 64718; J0690; J0702; J2704; J3010; J7120

== ENCOUNTER → 2023-09-09 07:49 | Outpatient (CLI) | payer MEDICARE, SELFPAY ==
--- NOTE | ~2023-09-09 | MR_ITS ---
EXAMINATION: MR IAC wo/w con DATE: 09/09/2023 08:41 INDICATION: Sensorineural hearing loss, bilateral. TECHNIQUE: Magnetic resonance imaging (MRI) of the brain, brainstem, and internal auditory canals was performed without and with 20 mL MultiHance intravenous contrast. COMPARISON: Brain MRI 11/20/2021 FINDINGS: There are scattered areas of nonspecific increased T2-weighted signal intensity in the cere bral white matter and jillian. There is no intracranial hemorrhage, acute infarction, or abnormal intrac ranial mass lesion. The ventricles are normal in size. There is mild mucosal thickening in the parana ajith sinuses. There are likely changes of ocular lens replacement surgeries. The internal auditory can als and inner ears are normal. There is a small right otomastoid effusion. IMPRESSION: 1. Moderate nonspecific cerebral white matter disease and pontine disease, which likely represents ch ronic small vessel ischemic disease, stable from 11/20/2021. 2. Small right otomastoid effusion. Reviewed, dictated and finalized at location A. ISTICIAN MATHEMATICAL IMPRESSION: 1. Moderate nonspecific cerebral white matter disease and pontine disease, whic h likely represents chronic small vessel ischemic disease, stable from 2. 2. Small right otomastoid effusion.
== END ==
PROVIDERS: PCP Nurse Practitioner Family; Visit Provider Nurse Practitioner Family
DX: H90.3 Sensorineural hearing loss, bilateral (principal); R90.82 White matter disease, unspecified
CPT/HCPCS: 70553; A9577

== ENCOUNTER 2024-11-24 11:15 | Outpatient (CLI) | payer MEDICARE, SELFPAY ==
--- NOTE | ~2024-11-24 | XR_ITS ---
XR hip RT min 2V 11/24/2024 11:43 Indication: Right hip pain after fall Procedure: 2 views right hip Comparison: No prior studies for comparison. Findings: There is moderate osteoarthritis of the right hip. No fracture, subluxation or dislocation. Sacral foramen are symmetric. There is lower lumbar spondylosis. No fracture or traumatic malalignme nt. Impression: 1: Moderate osteoarthritis of the right hip. Reviewed, dictated and finalized at location A. Impression: 1: Moderate osteoarthritis of the right hip.
== END 2024-11-24 11:16 | disposition home or self-care (01) ==
PROVIDERS: PCP Family Medicine Adolescent Medicine; Visit Provider Family Medicine Adolescent Medicine
DX: M16.11 Unilateral primary osteoarthritis, right hip (principal)
CPT/HCPCS: 73502

== ENCOUNTER 2024-11-26 09:01 | Outpatient (CLI) | payer MEDICARE, SELFPAY ==
--- NOTE | ~2024-11-26 | XR_ITS ---
XR ribs RT 2V Ordering provider: Connor Rahman MD History: . right lower chest pain after a fall . Comparison: None. FINDINGS: BONES: No acute right rib fracture or fracture of the visualized osseous structures. LUNGS: No effusions or infiltrates. No pneumothorax. SOFT TISSUES: Normal. Degenerative changes of the spine. Bilateral hip prosthesis is noted. IMPRESSION: No right rib fracture . Reviewed, dictated and finalized at location A. IMPRESSION: No right rib fracture .
== END 2024-11-26 09:02 | disposition home or self-care (01) ==
LOC: MICIMG 09:02
PROVIDERS: PCP Family Medicine Adolescent Medicine; Visit Provider Family Medicine Adolescent Medicine
DX: R07.89 Other chest pain (principal)
CPT/HCPCS: 71100

== ENCOUNTER 2024-11-30 08:48 | Outpatient (CLI) | payer MEDICARE, SELFPAY ==
--- NOTE | ~2024-11-30 | CT_ITS ---
Non-contrast CT scan of the Abdomen and Pelvis Clinical indication: Abdominal pain Technique: 2.5 mm axial scans were obtained through the abdomen and pelvis without intravenous or or al contrast. Dose reduction technique was used on this scan by utilizing automated exposure control a nd iterative reconstruction technique. The dose-length product (DLP) was 752.27 mGy-cm. Findings: Images through the lung bases reveal no abnormalities. There is a lobulated somewhat poorly delineated probable solid mass in the right kidney, exophytic loazno periorly, measuring up to approximately 6.2 x 5.1 x 7.3 cm in extent. The liver, spleen, pancreas, left kidney, and adrenals appear normal. Cholecystectomy clips are prese nt. There is no aortic aneurysm. There is no evidence of bowel obstruction. Images through the pelvis were performed. There is no evidence of ascites or lymphadenopathy. Urinary bladder unremarkable. Prostate gland minimally enlarged. No pelvic mass seen. No ascites. There is e xtensive degenerative spondylosis of the lumbar spine. Impression: Probable solid superior right renal mass measuring approximately 6.2 x 5.1 x 7.3 cm in extent. This i s highly suspicious for renal cell carcinoma. Contrast enhanced CT or MR advised to better delineate the suspected lesion. Reviewed, dictated and finalized at location M. Impression: Probable solid superior right renal mass measuring approximately 6.2 x 5.1 x 7. 3 cm in extent. This is highly suspicious for renal cell carcinoma. Contrast en hanced CT or MR advised to better delineate the suspected lesion.
== END 2024-11-30 08:49 | disposition home or self-care (01) ==
PROVIDERS: PCP Family Medicine Adolescent Medicine; Visit Provider Family Medicine Adolescent Medicine
DX: R10.84 Generalized abdominal pain (principal); N28.89 Other specified disorders of kidney and ureter
CPT/HCPCS: 74176

== ENCOUNTER 2025-05-06 09:30 | Outpatient (CLI) | payer MEDICARE, SELFPAY ==
--- OUTSIDE RECORDS SUMMARY | 2001-07-10 03:00 | XMS_ITS | Continuity of Care Document ---
Author Organization [facility] Address [address] [place] [address] Phone Care Team Providers Care Clinical Program Manager Name Role Phone Mendoza Lemos DO Unavailable Unavailable Advance Directives Directive Yes / No Effective Date File Name No Information Encounters Encounter Description Practice Location Reason(s) For Visit Diagnoses Date Provider Providers Copied on Encounter [facility], [address], [place], [place], [id number], tel:[phone] [facility] (formerly [facility])[3] No Information Canelo Chen. [address] [place], [address], [place]. tel:[phone] Family History Family Member Type Diagnosis Age At Onset No Information Payers Payer name Insurance type Covered constitution party ID Authoriza tion(s) No Information Social History Type Description Quantity Date Captured Comments Sex Male Smoking Status No Information Chief Complaint And Reason For Visit No Information Reason For Referral Reason For Referral No Information History Of Present Illness Encounter Date Complaint History Of Prese nt Illness No Information Functional Status Date Functional Assessmen t No Information Instructions Date Instruction Additional Infor mation No Information Assessments Type Assessment Date No Information Patient Care Teams Name Effective Dates (start - stop) Status Members No Information
--- OUTSIDE RECORDS SUMMARY | 2024-02-15 16:30 | XMS_ITS ---
Author Organization [facility] ([address]) Address [address] [place] [address] Care Team Providers Care Supervisor Plastics Name Role Phone Connor Pleitez Primary Care Provider Unavail able Dr. Lon Soto Unavailable [phone] ZZ-Migration, Provider Un[facility] REASON FOR VISIT [facility] Conversion Encounter Medications Medication SIG (Take, Route, Frequency, Duration) Notes Start Date End Date Status Rosuvastatin Calcium 20 MG 1 tab(s) oral ly once a day; Duration: 30 day(s) Active Lisinopril 5 MG 1 tab(s) orally once a day; Duration: 30 day(s) Active amLODIPine Besylate 2.5 MG 1 tab(s) oral ly once a day; Duration: 30 day(s) Active Encounters Encounter Location Date Provider Diagnosis [address] [address] 02/15/2024 Provider ZZ-Migration Plan Of Treatment No Information Progress Notes * Magdiel LUEVANODOB: 2 (75 yo M)Acc No.[id number]:02/15/2024 Patient: Sami Magdiel CORBETT Provider: Sami Patton :1950 A ge:74 Y S ex:Male Date:02/15/2024 Address:[address] [place] [address], [address] Pcp:Connor Pleitez Subjective: * Chief Complaints: * 1 . Multum To Medispan Conversion Encounter. * Medical History: * Medications: T aking amLODIPine Besylate 2.5 MG Tablet 1 tab(s) orally once a day , Taking Rosuvastatin Calcium 20 MG Tablet 1 tab(s) orally once a day , Taking Lisinopril 5 MG Tablet 1 tab(s) orally once a day Objective: * Vitals: Assessment: Plan: * Treatment: * Billing Information: * Visit Code: * Procedure Codes: * Electronic signature of Tona CARRASCO-Migration on 05/06/2025 at 09:54 AM CDT Sign off status: Pending * Provider: Sami penny Migration Date: 0 02/15/2024 Generated for Matthias arguello/Dianna/Jl on: 05/06/2025 09:54 AM CDT
--- OUTSIDE RECORDS SUMMARY | 2025-05-05 11:45 | XMS_ITS | Encounter Summary ---
Author Organization [facility] Address [address] [place] [address] Care Team Providers Care Two Way Radio Technician Name Role Phone Connor Rahman MD Primary Care Prov ider Reason for Referral * Cardiology (Routine) - Pending Review Specialty Diagnoses / Procedures Referred By Contac t Referred To Contact Diagnoses S/P TAVR (transcatheter aortic valve replacement) Procedures Transthoracic Echo (TTE) Complete W Doppler/CF Rafael Londono MD [address] [place], [place] [address] Phone: tel: fax: [facility] [address] [place] [address] Phone: tel: fax: Referral ID Status Reason Start Date Expiration Date V isits Requested Visits Authorized [id number] Pending Review 05/05/2025 06/04/2026 1 1 Reason for Visit * Reason Comments Overdue 1 yr f/u Hypertension S/P TAVR Encounter Details Date Type Department Care Team (Late st Contact Info) Description 05/05/2025 11:45 AM CDT Office Visit [facility] [address] [place] [id number] Rafael Londono MD [address] [place] [address] S/P TAVR (transcatheter aortic valve replacement) (Primary Dx); Essential hypertension; Renal cell carcinoma of right kidney (HCC); Tobacco abuse, in remission; Need for lipid screening Social History Tobacco Use Types Packs/Day Years Used Date Smoking Tobacco: Former Cigarettes Q uit: 2016 Smokeless Tobacco: Former Chew Quit: 1987 Alcohol Use Standard Drinks/Week Comments No 0 (1 standard drink = 0.6 oz pur e alcohol) AUDIT-C Answer Date Recorded Frequency of Alcohol Consumption Not on file 05/03/2022 Q2: How many drinks containi ng alcohol do you have on a typical day when you are drinking? 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 Gender Identity Not on file Sexual Orientation Not on file documented as of this encounter Last Filed Vital Signs Vital Sign Reading Time Taken Comments Blood Pressure 102/50 05/05/2025 11:48 AM CDT Pulse 71 05/05/2025 11:48 AM CDT Temperature - - Respiratory Rate - - Oxygen Saturation 99% 05/05/2025 11:48 AM CDT Inhaled Oxygen Concentration - - Weight 80.1 kg (176 lb 8 oz) 05/05/2025 11:48 AM CDT Height 182.9 cm (6') 05/05/2025 11:48 AM CDT Body Mass Index 23.94 05/05/2025 11:48 AM CDT documented in this encounter Plan of Treatment Scheduled Orders Name Type Priority Associated Diagnoses Order Schedule Transthoracic Echo (TTE) Complete W Doppler/CF Echocardiography Routine S/P TAVR (transcatheter aortic valve replacement) Expected: 06/23/2025, Expires: 05/05/2026 documented as of this encounter Procedures Procedure Name Priority Date/Time Associated Diagnosis Comments POCT LIPID PANEL Routine 05/05/2025 3:36 PM CDT Need for lipid screening documented in this encounter Results * (ABNORMAL) POCT lipid panel (05/05/2025 3:36 PM CDT) Cholesterol, POC 106 <200 MG/DL HDL, POC 39(A) >=40 mg/dL Triglycerides, POC 141 <=149 mg/dL LDL Cholesterol POC 38 <=129 mg/dL Chol/HDL Ratio, POC 1.0 NONE Non-HDL Cholesterol, POC 66 NONE mg/dL Cholesterol Total, POC 106 30 - 199 mg/dL Capillary blood 05/05/2025 3 :36 PM CDT Rafael Londono MD POINT OF CARE TEST ORDERABLES Fi nal Result documented in this encounter Visit Diagnoses Diagnosis S/P TAVR (transcatheter aortic valve replacement)- Primary Essential hypertension Unspecified essential hypertension Renal cell carcinoma of right kidney (HCC) Tobacco abuse, in remission Personal history of tobacco use, presenting hazards to health Need for lipid screening Screening for lipoid disorders documented in this encounter Discontinued Medications Medication Sig Discontinue Reason Start Date End Da te lisinopriL (PRINIVIL,ZESTRIL) 20 mg tablet Take 1 tablet (20 mg total) by mouth daily Patient Reported 03/23/2025 05/05/2025 documented as of this encounter Historical Medications * This list may reflect changes made after this encounter. prochlorperazine (COMPAZINE) 10 mg tablet Take 1 tablet (10 mg total) by mouth every 6 (six) hours as needed for nausea or vomiting pantoprazole DR (PROTONIX) 40 mg EC tablet Take 1 tablet (40 mg total) by mouth 12/08/2024 oxyCODONE-acetami nophen (PERCOCET) 10-325 mg per tablet Take 1 tablet by mouth every 6 (six) hours as needed 03/11/2025 magnesium oxide (MAG-OX) 400 mg (241.3 mg elemental magnesium) tablet Take 1 tablet (400 mg total) by mouth daily 02/09/2025 docusate sodium (COLACE) 100 mg capsule Take 1 capsule (100 mg total) by mouth 2 (two) times a day 03/11/2025 cyclobenzaprine (FLEXERIL) 5 mg tablet Take 1 tablet (5 mg total) by mouth 2 (two) times a day 03/17/2025 added in this encounter Care Teams Two Way Radio Technician Relationship Specialty Start Date End Date Connor Rahman MD PCP - General Family Medicine 01/22/24 documented as of this encounter
--- NOTE | ~2025-05-06 | XR_ITS ---
Lumbar spine series Indication: Pathological fracture Comparison: CT abdomen and pelvis 11/30/2024 Technique: 5 views lumbar spine Findings: 5 nonrib-bearing lumbar-type vertebral bodies. Possible mild height loss at L1 compared to prior CT. Otherwise no evidence of fracture. No listhesis. No evidence of instability with flexion or extension. Severe degenerative changes. SI joints congruent. Sacrum intact. IMPRESSION: 1. Possible mild height loss at L1 compared to prior CT. 2. Otherwise no evidence of fracture. 3. No evidence of instability with flexion or extension. Reviewed, dictated and finalized at location R.
--- NOTE | ~2025-05-06 | XR_ITS ---
[id number] 05/06/2025 10:05 Indication: Pathologic fracture Procedure: 3 views cervical spine Comparison: No prior studies for comparison. Findings: Normal cervical lordosis. Vertebral body heights are maintained. There is disc narrowing and endplate hypertrophy at C3-4 through C6-7. Prominent ventral osteophytes at these levels. No prevertebral soft tissue swelling. There is multilevel uncinate and facet hypertrophy. Odontoid appears intact. Impression: 1: No acute abnormality of the cervical spine. 2: Severe cervical spondylosis. Reviewed, dictated and finalized at location O. Impression: 1: No acute abnormality of the cervical spine. 2: Severe cervical spondylosis.
--- OUTSIDE RECORDS SUMMARY | 2025-05-06 09:54 | XMS_ITS | Clinical Summary ---
Author Organization [facility] Address [address] [place] [address] Phone Care Team Providers Care Old Testament Professor Name Role Phone Jenaro Green MD Unavailable Connor Rahman MD Primary Care Provider + Allergies No known active allergies Medications aspirin 81 MG Chewable Tablet Take 1 Tablet by mouth. 022 Active pantoprazole (PROTONIX) 40 MG Tablet Delayed Response Take 1 Tablet by mouth. 025 Active rosuvastatin (CRESTOR) 40 MG Tablet Take 40 mg by mouth. 024 Active ondansetron (Zofran) 4 MG Tablet Take 2 Tablets by mouth every 8 hours as needed for Nausea - 1st line. 40 Tablet 3 025 Active prochlorperaz ine (COMPAZINE) 10 MG Tablet Take 1 Tablet by mouth every 6 hours as needed for Nausea - 2nd line. 40 Tablet 3 025 Active docusate sodium (COLACE) 50 MG Capsule Take 1 Capsule by mouth 2 times daily. 180 Capsule 025 Active oxyCODONE-Miki taminophen (PERCOCET) 10-325 MG TabletIndicat ions:Small cell carcinoma (HCC),Cancer associated pain Take 1 Tablet by mouth every 6 hours as needed for Moderate or more severe pain. 90 Tablet 025 Active magnesium oxide (MAG-OX) 400 MG TabletIndicat ions:Neuroend ocrine carcinoma (HCC) TAKE 1 TABLET BY MOUTH EVERY DAY 30 Tablet 1 025 Active baclofen (LIORESAL) 5 MG Tablet TAKE 1 TABLET BY MOUTH 3 TIMES A DAY FOR HICCUPS, DONT TAKE WITH CYCLOBENZAPRINE 21 Tablet 025 Active cyclobenzapri ne (FLEXERIL) 5 MG Tablet TAKE 1 TABLET BY MOUTH TWICE A DAY 60 Tablet 025 Active cyclobenzapri ne (FLEXERIL) 5 MG Tablet TAKE 1 TABLET BY MOUTH TWICE A DAY 60 Tablet 025 2024 Discontinued lisinopril (PRINIVIL, ZESTRIL) 20 MG Tablet Take 20 mg by mouth daily. 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 Lymphadenopathy 03/09/2025 Cancer associated pain 03/09/2025 Chemotherapy induced nausea and vomiting Hypomagnesemia 03/09/2025 Neuroendocrine carcinoma 01/12/2025 Hypertension Encounters Date Type Department Care Team Description 05/02/2025 Refill [facility] [address] [address] Jenaro Green MD Medication Refill 05/02/2025 Refill [facility] [address] [address] Braden Griffith, DO Medication Refill 04/27/2025 11:00 AM CDT Office Visit [facility] [address] [address] Angelica Lee, POLITICAL GEOGRAPHER, STRAINER MILL OPERATOR 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); Neuroendocrine carcinoma (HCC); Metastasis to bone (HCC); Anemia, unspecified type; Hypomagnesemia 04/27/2025 9:00 AM CDT Clinical Support [facility] [address] [address] Nurse, Cc [place] 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); Neuroendocrine carcinoma (HCC) 04/27/2025 Travel 04/26/2025 Telephone [facility] [address] [address] Jenaro Green MD 04/23/2025 9:30 AM CDT Clinical Support [facility] [address] [address] Nurse, Cc [place] Neuroendocrine carcinoma (HCC) (Primary Dx) 04/22/2025 8:45 AM CDT Clinical Support [facility] [address] [address] Nurse, Cc [place] Neuroendocrine carcinoma (HCC) (Primary Dx) 04/21/2025 8:45 AM CDT Clinical Support [facility] [address] [address] Nurse, Cc [place] Neuroendocrine carcinoma (HCC) (Primary Dx) 04/20/2025 9:00 AM CDT Office Visit [facility] [address] [address] Jenaro Green MD 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); Metastasis to bone (HCC); Hypomagnesemia; Anemia, unspecified type 04/20/2025 8:45 AM CDT Clinical Support [facility] [address] [address] Neuroendocrine carcinoma (HCC) (Primary Dx); 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); Metastasis to bone (HCC); Lymphadenopathy; Hypomagnesemia 04/20/2025 Telephone [facility] [address] [address] Jenaro Green MD 04/20/2025 Travel 04/19/2025 Telephone [facility] [address] [address] Jenaro Green MD 04/05/2025 Refill [facility] [address] [address] Jenaro Green MD Medication Refill 04/02/2025 8:45 AM CDT Clinical Support [facility] [address] [address] Neuroendocrine carcinoma (HCC) (Primary Dx) 04/01/2025 8:45 AM CDT Clinical Support [facility] [address] [address] Neuroendocrine carcinoma (HCC) (Primary Dx) 03/31/2025 8:45 AM CDT Clinical Support [facility] [address] [address] Neuroendocrine carcinoma (HCC) (Primary Dx) 03/30/2025 11:50 AM CDT Clinical Support [facility] [address] [address] Small cell carcinoma (HCC) (Primary Dx); Neuroendocrine carcinoma (HCC); 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) 03/30/2025 8:45 AM CDT Office Visit [facility] [address] [phone] Jenaro Green MD Small cell carcinoma (HCC) (Primary Dx); Cancer associated pain; Metastasis to bone (HCC); 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); Hypomagnesemia 03/30/2025 Travel 03/23/2025 Refill [facility] [address] [address] Jenaro Green MD Medication Refill 03/19/2025 Telephone [facility] [address] [address] Jenaro Green MD 03/19/2025 Telephone [facility] [address] [address] Jenaro Green MD 03/17/2025 Telephone [facility] [address] [address] Jenaro Green MD 03/17/2025 Refill [facility] [address] [address] Mai Alvarenga APRN, STRAINER MILL OPERATOR Medication Refill 03/15/2025 Telephone [facility] [address] [address] Jenaro Green MD Canopy Call / Fall with fx 03/12/2025 8:45 AM CDT Clinical Support [facility] [address] [address] Nurse, Cc [place] Neuroendocrine carcinoma (HCC) (Primary Dx) 03/11/2025 8:00 AM CDT Clinical Support [facility] [address] [address] Neuroendocrine carcinoma (HCC) (Primary Dx) 03/10/2025 8:30 AM CDT Clinical Support [facility] [address] [address] Nurse, Cc [place] Neuroendocrine carcinoma (HCC) (Primary Dx) 03/09/2025 8:30 AM CDT Office Visit [facility] [address] [address] Mai Alvarenga APRN, STRAINER MILL OPERATOR Small cell carcinoma (HCC) (Primary Dx); Metastasis to bone (HCC); Hypomagnesemia; Chemotherapy induced nausea and vomiting; Cancer associated pain; Hypotension due to drugs 03/09/2025 8:15 AM CDT Clinical Support [facility] [address] [address] Neuroendocrine carcinoma (HCC) (Primary Dx); Small cell carcinoma (HCC); Metastasis to bone (HCC); 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); Lymphadenopathy; Cancer associated pain; Chemotherapy induced nausea and vomiting; Hypomagnesemia 03/09/2025 Travel 03/04/2025 Refill [facility] [address] [address] Jenaro Green MD Medication Refill 03/02/2025 8:45 AM CDT Office Visit [facility] [address] [address] Mai Alvarenga APRN, STRAINER MILL OPERATOR Small cell carcinoma (HCC) (Primary Dx); Metastasis to bone (HCC); 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); Lymphadenopathy; Cancer associated pain; Chemotherapy induced nausea and vomiting; Hypomagnesemia 03/02/2025 8:30 AM CDT Clinical Support [facility] [address] [address] Neuroendocrine carcinoma (HCC) (Primary Dx) 03/02/2025 Travel 02/15/2025 10:30 AM CDT Care Management [facility] [address] [address] [facility] Care Management (CHEMO CALL BACK) 02/15/2025 Refill [facility] [address] [address] Jenaro Green MD Medication Refill 02/15/2025 Telephone [facility] [address] [phone] Jenaro Green MD 02/12/2025 11:15 AM CDT Clinical Support [facility] [address] [address] Nurse, Cc [place] Neuroendocrine carcinoma (HCC) (Primary Dx) 02/11/2025 9:45 AM CDT Clinical Support [facility] [address] [address] Nurse, Cc [place] Neuroendocrine carcinoma (HCC) (Primary Dx) 02/10/2025 9:35 AM CDT Clinical Support [facility] [address] [address] Nurse, Cc [place] Neuroendocrine carcinoma (HCC) (Primary Dx) 02/09/2025 12:45 PM CDT Education [facility] [address] [address] NavigatorTracy Nurse Neuroendocrine carcinoma (HCC) (Primary Dx) 02/09/2025 8:45 AM CDT Office Visit [facility] [address] [address] Jenaro Green MD Small cell carcinoma (HCC) (Primary Dx); Cancer associated pain; Metastasis to bone (HCC) 02/09/2025 8:30 AM CDT Clinical Support [facility] [address] [address] Small cell carcinoma (HCC) (Primary Dx); Neuroendocrine carcinoma (HCC) 02/09/2025 Results Follow-Up [facility] [address] [address] Jenaro Green MD MAGNESIUM (MG), CMP (COMPREHENSIVE METABOLIC PANEL), COMPLETE BLOOD COUNT (CBC) WITH DIFF 02/09/2025 Travel 02/08/2025 10:00 AM CDT Care Management [facility] [address] [address] NavigTracy paulino Nurse Care Management (EDUCATION PREP) from Last 3 Months Family History Relation Name Status Comments Brother Child 1 Alive Child 2 Alive Father Mother Sister Social History Tobacco Use Types Packs/Day Years Used Date Smoking Tobacco: Former Cigarettes Q uit: 2019 Smokeless Tobacco: Never Tobacco Cessation:Counseling Given: Not Answered Alcohol Use Standard Drinks/Week Comments Not Currently 0 (1 standard drink = 0.6 oz pur e alcohol) Sex and Gender Information Value Date Recorded Sex Assigned at Male 01/01/2025 4:05 PM CDT Legal Sex Male 4:02 PM CDT Gender Identity Male 01/01/2025 4:05 PM CDT Sexual Orientation Not on file Last Filed Vital Signs Vital Sign Reading Time Taken Comments Blood Pressure 112/78 04/27/2025 10:50 AM CDT Pulse 51 04/27/2025 10:50 AM CDT Temperature 36.6 C (97.9 F) 04/27/2025 10:50 AM CDT Respiratory Rate 18 04/20/2025 8:43 AM CDT Oxygen Saturation 100% 04/27/2025 10: 50 AM CDT Inhaled Oxygen Concentration - - Weight 81.1 kg (178 lb 11.2 oz) 04/20/2025 8:43 AM CDT Height 185.4 cm (6' 1) 04/20/2025 8:43 AM CDT Body Mass Index 23.58 04/20/2025 8:43 AM CDT Plan of Treatment Upcoming Encounters Date Type Department Care Team (Late st Contact Info) Description 05/11/2025 8:45 AM CDT Clinical Support [facility] [address] [phone] 05/11/2025 9:00 AM CDT Office Visit [facility] [address] [phone] Jenaro Green MD [address] [place] [address] 05/12/2025 10:00 AM CDT Clinical Support [facility] [address] [phone] Nurse, Cc [facility] 05/13/2025 10:00 AM CDT Clinical Support [facility] [address] [phone] Nurse, Cc [place] 05/14/2025 10:00 AM CDT Clinical Support [facility] [address] [phone] Nurse, Cc [facility] Health Maintenance Due Date Last Done Comments Hepatitis C Virus (HCV) Screening 1950 Cologuard 01/22/1997 Colonoscopy 01/22/1997 Colorectal Cancer Screening 01/22/1997 Immunochemical Fecal Occult Blood 01/22/1997 Respiratory Syncytial Virus (RSV) Immunization (Adult) (1 - Risk 60-74 years 1-dose series) 2012 Influenza Immunization (#1) 2025 01/0 09/2023, 08/09/2023, 07/18/2022, Additional history exists SARS-COV-2 Immunization ( season) 2025 07/18/2022, 03/14/2022, 08/17/2021, Additional history exists AAA Screening Ultrasound Completed 01/08/2015, 06/03 Zoster Immunization Completed 03/24/2019, 9 TdaP Immunization Completed 05/05/2020 Pneumococcal Immunization (50+ years) Completed 06/02/2020, 06/02/2019, 06/09/2018 Hepatitis B Immunization Aged Out No longer eligible based on patient's age to complete this topic Human Papillomavirus (HPV) Immunization Aged Out No longer eligible based on patient's age to complete this topic Meningococcal Immunization (ACWY) Aged Out No longer eligible based on patient's age to complete this topic Rotavirus Immunization Aged Out No lo nger eligible based on patient's age to complete this topic Procedures Procedure Name Priority Date/Time Associated Diagnosis Comments COMPLETE BLOOD COUNT (CBC) WITH DIFF Routine 04/27/2025 9:21 AM CDT 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) CMP (COMPREHENSIVE METABOLIC PANEL) Routine 04/27/2025 9:21 AM CDT 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) COMPLETE BLOOD COUNT (CBC) WITH DIFF Routine 04/20/2025 8:33 AM CDT Neuroendocrine carcinoma (HCC) CMP (COMPREHENSIVE METABOLIC PANEL) Routine 04/20/2025 8:33 AM CDT 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) Metastasis to bone (HCC) Lymphadenopathy Hypomagnesemia Neuroendocrine carcinoma (HCC) MAGNESIUM (MG) Routine 04/20/2025 8:33 AM CDT 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) Metastasis to bone (HCC) Lymphadenopathy Hypomagnesemia Neuroendocrine carcinoma (HCC) CBC WITH AUTO DIFF [place] Routine 03/30/2025 8:30 AM CDT Small cell carcinoma (HCC) CMP (COMPREHENSIVE METABOLIC PANEL) Routine 03/30/2025 8:30 AM CDT Small cell carcinoma (HCC) MAGNESIUM (MG) Routine 03/30/2025 8:30 AM CDT Small cell carcinoma (HCC) COMPLETE BLOOD COUNT (CBC) WITH DIFF Routine 03/09/2025 8:07 AM CDT Small cell carcinoma (HCC) Metastasis to bone (HCC) 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) Lymphadenopathy Cancer associated pain Chemotherapy induced nausea and vomiting Hypomagnesemia CMP (COMPREHENSIVE METABOLIC PANEL) Routine 03/09/2025 8:07 AM CDT Small cell carcinoma (HCC) Metastasis to bone (HCC) 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) Lymphadenopathy Cancer associated pain Chemotherapy induced nausea and vomiting Hypomagnesemia MAGNESIUM (MG) Routine 03/09/2025 8:07 AM CDT Small cell carcinoma (HCC) Metastasis to bone (HCC) 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) Lymphadenopathy Cancer associated pain Chemotherapy induced nausea and vomiting Hypomagnesemia COMPLETE BLOOD COUNT (CBC) WITH DIFF Routine 03/02/2025 7:52 AM CDT Neuroendocrine carcinoma (HCC) CMP (COMPREHENSIVE METABOLIC PANEL) Routine 03/02/2025 7:52 AM CDT Neuroendocrine carcinoma (HCC) MAGNESIUM (MG) Routine 03/02/2025 7:52 AM CDT Neuroendocrine carcinoma (HCC) COMPLETE BLOOD COUNT (CBC) WITH DIFF Routine 02/09/2025 8:11 AM CDT Small cell carcinoma (HCC) CMP (COMPREHENSIVE METABOLIC PANEL) Routine 02/09/2025 8:11 AM CDT Small cell carcinoma (HCC) MAGNESIUM (MG) Routine 02/09/2025 8:11 AM CDT Small cell carcinoma (HCC) from Last 3 Months Results * (ABNORMAL) CMP (COMPREHENSIVE METABOLIC PANEL) (04/27/2025 9:21 AM CDT) Only the most recent of6 resultswithin the time period is included. Glucose 113(H) 70 - 105 mg/dL [facility] Blood Urea Nitrogen 19 7 - 25 mg/dL [facility] Creatinine 0.6(L) 0.7 - 1.3 mg/dL [facility] Sodium 133(L) 136 - 145 mEq/L [facility] Potassium 4.1 3.5 - 5.1 mEq/L [facility] Chloride 98 98 - 107 mEq/L [facility] Bicarbonate 27 21 - 31 mEq/L [facility] Total Bilirubin 0.7 0.3 - 1.0 mg/dL [facility] Alk. Phosphatase 143(H) 34 - 104 U/L [facility] Aspartate Aminotransferase 15 13 - 39 U/L [facility] Alanine Aminotransferase 21 7 - 52 U/L [facility] Total Protein 6.5 6.4 - 8.9 g/dL [facility] Albumin 4.0 3.5 - 5.7 g/dL [facility] Calcium 9.2 8.6 - 10.3 mg/dL [facility] Anion Gap 12.1 7.0 - 15.0 mEq/L [facility] Globulin 2.5 2.0 - 3.5 g/dL [facility] EGFR 102 >60 ml/min/1. 73m2 [facility] Comment: This eGFR is calculated using 2020 CKD-EPI Creatinine equation without race modifier based on the NKF-ASN task force recommendations Equation: tWQR=335*min(SCr/k,1)a*max(SCr/k,1)-1.200*0.9938Age*1.012 (if female), where SCr is serum creatinine, k is 0.7 for females and 0.9 for males, and a is -0.241 for females and -0.302 for males Blood 04/27/2025 9:[address] [facility] - 04/27/2025 10:11 AM CDT Release to patient->Immediate IS THE PATIENT REQUIRED TO BE FASTING FOR 8 HOURS?->No us Jenaro Green MD CHEMISTRY ORDERABLES Final Resul t [facility] [place] [address], * (ABNORMAL) COMPLETE BLOOD COUNT (CBC) WITH DIFF (04/27/2025 9:21 AM CDT) Only the most recent of5 resultswithin the time period is included. WBC 12.5(H) 4.0 - 10.0 10*3/uL [facility] HGB 8.2(L) 13.7 - 17.5 g/dL [facility] HCT 25.5(L) 40.1 - 51.0 % [facility] PLT 196 163 - 369 10*3/uL [facility] MPV 9.9 9.4 - 12.4 fL [facility] RBC 2.72(L) 4.63 - 6.08 10*6/uL [facility] MCV 94 79 - 95 fL [facility] MCH 30.1 25.6 - 32.2 pg [facility] MCHC 32.2 32.2 - 36.5 g/dL [facility] RDW 19.0(H) 11.6 - 14.4 % [facility] Absolute Neutrophil Count 10,707 cells/uL [facility] Absolute Seg Count 10,707(H) 1,440 - 6,600 cells/uL [facility] Absolute Lymph Count 1,121 760 - 4,000 cells/uL [facility] Absolute [place] Count 623 160 - 1,200 cells/uL [facility] Segmented Neutrophils 86(H) 36 - 66 % [facility] Lymphocytes 9(L) 19 - 40 % [facility] Monocytes 5 4 - 12 % [facility] WBC Estimate High [facility] Platelet Estimate Normal CA [facility] RBC Morphology Abnormal [facility] Anisocytosis 1+ [facility] Poikilocytosis 1+ [facility] Toxic Granulation Present CA [facility] Elliptocytes 1+ [facility] Schistocytes 1+ [facility] Dle Bodies Present [facility] Blood 04/27/2025 9:21 AM CDT Narrative [facility] - 04/27/2025 11:09 AM CDT Release to patient->Immediate us Jenaro Green MD HEMATOLOGY ORDERABLES Final Resu lt Performing Organization Address City/[facility]/ZIP Co de Phone Number [facility] [place] [address] [place] [address], * (ABNORMAL) MAGNESIUM (MG) (04/20/2025 8:33 AM CDT) Only the most recent of5 resultswithin the time period is included. Magnesium 1.8(L) 1.9 - 2.7 mg/dL [facility] Blood 04/20/2025 8:33 AM CDT Narrative [facility] - 04/20/2025 9:15 AM CDT Release to patient->Immediate us Jenaro Green MD CHEMISTRY ORDERABLES Final Resul t Performing Organization Address City/[facility]/ZIP Co de Phone Number [facility] [address] [place] [address], [place] [phone] * (ABNORMAL) CBC WITH AUTO DIFF [place] (03/30/2025 8:30 AM CDT) WBC 7.7 4.0 - 10.0 10*3/uL [facility] HGB 8.3(L) 13.7 - 17.5 g/dL [facility] HCT 25.1(L) 40.1 - 51.0 % [facility] PLT 159(L) 163 - 369 10*3/uL [facility] MPV 10.6 9.4 - 12.4 fL [facility] RBC 2.84(L) 4.63 - 6.08 10*6/uL [facility] MCV 88 79 - 95 fL [facility] MCH 29.2 25.6 - 32.2 pg [facility] MCHC 33.1 32.2 - 36.5 g/dL [facility] RDW 17.9(H) 11.6 - 14.4 % [facility] Neutrophils % 74.2(H) 36.0 - 66.0 % [facility] Lymphocytes % 14.5(L) 19.0 - 40.0 % [facility] Monocytes % 8.9 4.1 - 12.1 % [facility] Eosinophils % 0.4 0.0 - 3.5 % [facility] Basophils % 0.4 0.0 - 1.0 % [facility] Absolute Neutrophils 5.7 1.4 - 6.6 10*3/uL [facility] Absolute Lymphocytes 1.1 0.8 - 4.0 10*3/uL [facility] Absolute Monocytes 0.7 0.2 - 1.2 10*3/uL [facility] Absolute Eosinophils 0.0 0.0 - 0.4 10*3/uL [facility] Absolute Basophils 0.0 0.0 - 0.1 10*3/uL [facility] 03/30/2025 8:30 AM CDT Jenaro Green MD LAB SEND OUTS Final Result [facility] [place] [address], from Last 3 Months Insurance [facility] Care Teams [employer] Professor Relationship Specialty Start Date End Date Connor Rahman MD [address] [place] [address] PCP - General Family Medicine 01/07/25 Jenaro Green MD [address] [place] [address] Consulting Physician Oncology 01/07/25
--- OUTSIDE RECORDS SUMMARY | 2025-05-06 09:54 | XMS_ITS | Encounter Summary ---
Author Organization [facility] Address [address] [place] [address] Phone Care Team Providers Care Learning Center Coordinator Name Role Phone Jenaro Green MD Unavailable Connor Rahman MD Primary Care Provider + Reason for Visit * Reason Comments Medication Refill Encounter Details Date Type Department Care Team (Late st Contact Info) Description 05/02/2025 Refill [facility] [address] [place] [address] Braden Griffith, DO [address] [place] [address] Medication Refill Social History Tobacco Use Types Packs/Day Years Used Date Smoking Tobacco: Former Cigarettes Q uit: 2019 Smokeless Tobacco: Never Alcohol Use Standard Drinks/Week Comments Not Currently 0 (1 standard drink = 0.6 oz pur e alcohol) Sex and Gender Information Value Date Recorded Sex Assigned at Male 01/01/2025 4:05 PM CDT Legal Sex Male 4:02 PM CDT Gender Identity Male 01/01/2025 4:05 PM CDT Sexual Orientation Not on file documented as of this encounter Miscellaneous Notes * Telephone Encounter - Leon Villafuerte RN - 05/05/2025 9:50 AM CDT Called patient yesterday to verify that patient is still taking the baclofen and he stated that he takes it after his treatment. * Telephone Encounter - Leon Villafuerte RN - 05/05/2025 9:50 AM CDT Images from the original note were not included. Jenaro Green MD to Ar (Selected Message) BF 05/04/25 3:45 PM Please check with patient is still taking. Would not keep on it forever. Thanks * Telephone Encounter - Leon Villafuerte RN - 05/04/2025 12:28 PM CDT Refill request from pharmacy. Refill if appropriate. documented in this encounter Plan of Treatment Upcoming Encounters Date Type Department Care Team (Late st Contact Info) Description 05/11/2025 8:45 AM CDT [facility] [address] [phone] 05/11/2025 9:00 AM CDT Office Visit [facility] [address] [phone] Jenaro Green MD [address] [place] [address] 05/12/2025 10:00 AM CDT Clinical Support [facility] [address] [address] Nurse, Cc lela [place] 05/13/2025 10:00 AM CDT Clinical Support [facility] [address] [phone] Nurse, Cc Harriet [place] 05/14/2025 10:00 AM CDT Clinical Support [facility] [address] [phone] Nurse, [facility] documented as of this encounter Visit Diagnoses Not on filedocumented in this encounter Care Teams Learning Center Coordinator Relationship Specialty Start Date End Date Connor Rahman MD [address] [place] [address] PCP - General Family Medicine 01/07/25 Jenaro Green MD [address] [place] [address] Consulting Physician Oncology 01/07/25 documented as of this encounter
--- OUTSIDE RECORDS SUMMARY | 2025-05-06 09:54 | XMS_ITS ---
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 Lymphadenopathy 03/09/2025 Cancer associated pain 03/09/2025 Chemotherapy induced nausea and vomiting 025 Hypomagnesemia 03/09/2025 Neuroendocrine carcinoma 01/12/2025 Hypertension Current Treatment and Therapy Plans [facility]SCI: Carboplatin/Etoposide - Small Cell* Plan Start Date:01/12/2025 Plan Provider:Jenaro Green MD Linked Problems Neuroendocrine carcinoma (HC C) Treatment Medications Current Day (Day 1 , Cycle 6 - Planned for 05/11/2025) Next Day (Day 2, Cycle 6 - Planned for 05/12/2025) CARBOplatin (PARAPLATIN) chemo infusion (by AUC)etoposide chemo infusion CARBOplatin 750 mg in dextrose 5 % 250 mL chemo infusionetoposide (TOPOSAR) 160 mg in sodium chloride 0.9 % 1,000 mL chemo infusion etoposide (TOPOSAR) 160 mg in sodium chloride 0.9 % 1,000 mL chemo infusion SUPPORT - HYDRATION WITH ADDITIVES + ANTIEMETICS - CCSCI* Plan Start Date: 03/30/2025 Plan Provider:Jenaro Green MD Linked Problems Neuroendocrine carcinoma (HC C)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) Treatment Medications No medications scheduled. Past Treatment and Therapy Plans No past plan information found. Lifetime Dose Tracking * Chemical Lifetime Dose Automatic Entry Manual Entr y Carboplatin 1,316.033 mg/m2 (2,712 mg) 1,316.033 mg/m 2 (2,712 mg) 0 mg/m2 (0 mg)
--- OUTSIDE RECORDS SUMMARY | 2025-05-06 09:54 | XMS_ITS | Encounter Summary ---
Author Organization [facility] Address [address] [place] [address] Phone Care Team Providers Care Dentist/Owner Name Role Phone Jenaro Green MD Unavailable Connor Rahman MD Primary Care Provider + Reason for Visit * Reason Comments Medication Refill Encounter Details Date Type Department Care Team (Late st Contact Info) Description 05/02/2025 Refill [facility] [address] [place] [address] Jenaro Green MD [address] [place] [address] Medication Refill Social History Tobacco Use Types [...] Encounter - Leon Villafuerte RN - 05/05/2025 12:59 PM CDT Called patient and he stated that he is still taking the Flexeril. * Telephone Encounter - Leon Villafuerte RN - 05/05/2025 9:52 AM CDT Attempted to call patient and had to leave voicemail * Telephone Encounter - Leon Villafuerte RN - 05/05/2025 9:52 AM CDT Images from the original note were not included. Jenaro Green MD to Mi (Selected Message) BF 05/04/25 3:45 PM Also check if still taking muscle relaxant. Would avoid intermediate accountant also. Thanks * Telephone Encounter - Leon Villafuerte RN - 05/04/2025 12:12 PM CDT Refill request from pharmacy. Refill if appropriate. documented in this encounter Plan of Treatment Upcoming Encounters Date Type Department Care Team (Late st Contact Info) Description 05/11/2025 8:45 AM CDT Clinical Support [facility] [address] [phone] 05/11/2025 9:00 AM CDT Office Visit [facility] [address] [phone] Jenaro Green MD [address] [place] [address] 05/12/2025 10:00 AM CDT Clinical Support [facility] [address] [phone] Nurse, [facility] 05/13/2025 10:00 AM CDT Clinical Support [facility] [address] [address] Nurse, Tracy FUENTES 05/14/2025 10:00 AM CDT Clinical Support [facility] [address] [phone] Nurse, Tracy Larios [place] documented as of this encounter Visit Diagnoses Not on filedocumented in this encounter Care Teams Dentist/Owner Relationship Specialty Start Date End Date Connor Rahman MD [address] [place] [phone] PCP - General Family Medicine 01/07/25 Jenaro Green MD [address] [place] [phone] Consulting Physician Oncology 01/07/25 documented as of this encounter
--- OUTSIDE RECORDS SUMMARY | 2025-05-06 09:54 | XMS_ITS | Clinical Summary ---
Author Organization [facility] [address] Address [address] [place] [address] Care Team Providers Care Fleet Maintenance Manager Name Role Phone Connor Rahman MD Primary Care Prov ider Allergies No known active allergies Medications gabapentin (NEURONTIN) 100 mg capsule Take 100 mg by mouth 3 (three) times a day Active aspirin 81 mg chewable tabletIndicatio ns:coronary artery disease Take 1 tablet (81 mg total) by mouth daily 30 tablet 11 2 Active rosuvastatin (CRESTOR) 40 mg tablet TAKE 1 TABLET BY MOUTH EVERY DAY 90 tablet 2 4 Active cyclobenzaprine (FLEXERIL) 5 mg tablet Take 1 tablet (5 mg total) by mouth 2 (two) times a day 5 Active docusate sodium (COLACE) 100 mg capsule Take 1 capsule (100 mg total) by mouth 2 (two) times a day 5 Active magnesium oxide (MAG-OX) 400 mg (241.3 mg elemental magnesium) tablet Take 1 tablet (400 mg total) by mouth daily 5 Active oxyCODONE-aceta minophen (PERCOCET) 10-325 mg per tablet Take 1 tablet by mouth every 6 (six) hours as needed [address] (PROTONIX) 40 mg EC tablet Take 1 tablet (40 mg total) by mouth 5 Active prochlorperazin e (COMPAZINE) 10 mg tablet Take 1 tablet (10 mg total) by mouth every 6 (six) hours as needed for nausea or vomiting Active lisinopriL (PRINIVIL,ZESTR IL) 20 mg tablet Take 1 tablet (20 mg total) by mouth daily 30 tablet 11 5 05/05/20 25 Discontinu ed(Patient Reported) Active Problems Problem Noted Date Diagnosed Date Aortic valve stenosis 01/22/2022 Overview (01/22/2022): Added automatically from request for surgery [id number] Encounters Date Type Department Care Team Description 05/05/2025 11:45 AM CDT Office Visit [facility] Cardiology [address] [place] [address] Rafael Londono MD S/P TAVR (transcatheter aortic valve replacement) (Primary Dx); Essential hypertension; Renal cell carcinoma of right kidney (HCC); Tobacco abuse, in remission; Need for lipid screening 03/10/2025 Telephone [facility] Cardiology [address] [place] [address] Rafael Londono MD from Last 3 Months Surgical History Surgery Date Site/Laterality Comments APPENDECTOMY CHOLECYSTECTOMY KNEE SURGERY Left cartilage and ligament repair BACK SURGERY CATARACT EXTRACTION, BILATERAL CARPAL TUNNEL RELEASE 09/02/2021 - 09/01/2022 Right CARDIAC CATHETERIZATION 02/22/2022 Medical History Medical History Date Comments Hypertension Heart murmur Hyperlipidemia Sinusitis Neuropathy Aortic valve stenosis 12/2021 SOBOE (shortness of breath on exertion) Family History Medical History Relation Name Comments Lung cancer Father Heart disease Mother Hyperlipidemia Mother Hypertension Mother Relation Name Status Comments Father (Age 86) Mother (Age 84) Social History Tobacco Use Types Packs/Day Years Used Date Smoking Tobacco: Former Cigarettes Q uit: 2016 Smokeless Tobacco: Former Chew Quit: 1987 Tobacco Cessation:Counseling Given: Not Answered Alcohol Use Standard Drinks/Week Comments No 0 [...] on file 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 Gender Identity Not on file Sexual Orientation Not on file Obstetrics History Last Filed Vital Signs Vital Sign Reading Time Taken Comments Blood Pressure 102/50 05/05/2025 11:48 AM CDT Pulse 71 05/05/2025 11:48 AM CDT Temperature 36.4 C (97.6 F) 05/04/2022 11:00 AM CDT Respiratory Rate 18 05/04/2022 11:00 AM CDT Oxygen Saturation 99% 05/05/2025 11:48 AM CDT Inhaled Oxygen Concentration - - Weight 80.1 kg (176 lb 8 oz) 05/05/2025 11:48 AM CDT Height 182.9 cm (6') 05/05/2025 11:48 AM CDT Body Mass Index 23.94 05/05/2025 11:48 AM CDT Plan of Treatment Health Maintenance Due Date Last Done Comments Colon Cancer Screening-Colonoscopy 1950 Depression Screening 1950 Hepatitis C Screening 1950 Hepatitis B Screening 01/22/1970 Well Visit 65+ 01/22/2017 Fall Risk Assessment 05/04/2023 05/04/2022 Covid-19 Vaccine (5 - 2024-2 6 season) 2025 03/14/2022, 08/17/2021, 11/15/2020, Additional history exists Influenza Vaccine (#1) 2025 , 08/17/2021, 05/05/2020, Additional history exists DTaP/Tdap/Td Vaccine (2 - Td or Tdap) 05/05/2030 05/05/2020 Zoster Vaccine Completed 03/24/2019, 01/22/2019 Pneumococcal vaccine 65+ Completed 020, 06/02/2019, 06/09/2018 Abdominal Aortic Aneurysm (A AA) Screen Completed 03/14/2025, 03/13/2025, 01/10/2025, Additional history exists Medical Devices Implanted Type Area Steel Inspector Device Identifier Shelf Expiration Date Model / Serial / Lot [employer] Mynx Control 6-7fr 2 Mode Balloon Catheter Sealant Lock Syringe [id number] - [id number] Implanted:Qty: 1 on 02/22/2022 by Rafael Londono MD at [facility] [employer] 12/01/2023 [id number] / / [id number] [employer] Device Clsr Perclose Prostyle Sut-Mediatd Closure-Repair Sys 74361-99 - [id number] Implanted:Qty: 1 on 05/03/2022 by Rafael Londono MD at [facility] [employer] 81073-33 / / [employer] Valve Crimper [id number] - [id number] - [id number] Implanted:Qty: 1 on 05/03/2022 by Rafael Londono MD at [facility] [employer] 01/07/2025 [id number] / [id number] / [employer] Medical Anushka Angio-Seal Vip 6fr Closere Device [id number] - [id number] Implanted:Qty: 1 on 05/03/2022 by Rafael Londono MD at [facility] [employer] Anushka 11/30/2022 [id number] / / [id number] [employer] Mynx Control 6-7fr 2 Mode Balloon Catheter Sealant Lock Syringe [id number] - [id number] Implanted:Qty: 1 on 05/03/2022 by Rafael Londono MD at [facility] [employer] 04/01/2023 [id number] / / [id number] Procedures Procedure Name Priority Date/Time Associated Diagnosis Comments POCT LIPID PANEL Routine 05/05/2025 3:36 PM CDT Need for lipid screening CT ABDOMEN PELVIS W WO CONTRAST Routine 02/01/2016 8:00 AM CDT from Last 3 Months or Most Recently Relevant to Health Maintenance Results * (ABNORMAL) POCT lipid panel (05/05/2025 3:36 PM CDT) Cholesterol, POC 106 <200 MG/DL HDL, POC 39(A) >=40 mg/dL Triglycerides, POC 141 <=149 mg/dL LDL Cholesterol POC 38 <=129 mg/dL Chol/HDL Ratio, POC 1.0 NONE Non-HDL Cholesterol, POC 66 NONE mg/dL Cholesterol Total, POC 106 30 - 199 mg/dL Capillary blood 05/05/2025 3 :36 PM CDT us Rafael Londono MD POINT OF CARE TEST ORDERABLES Fi nal Result from Last 3 Months Insurance [id number] [place] [address] MEDICARE ADVANTAGE MDCR HMO REF Care Teams Fleet Maintenance Manager Relationship Specialty Start Date End Date Connor Rahman MD PCP - General Family Medicine 01/22/24
--- OUTSIDE RECORDS SUMMARY | 2025-05-06 09:54 | XMS_ITS | Patient Health Record ---
Author Organization [facility] [employer] [place] ([address]) Address [address] [place] [address] Care Team Providers Care Undraped Artist Model Name Role Phone Connor Pleitez Primary Care Provider Unavail Dr. Lon Portillo Unavailable [phone] Allergies No Known Allergies Reason For Referral No Information Medications Medication SIG (Take, Route, Frequency, Duration) Notes Start Date End Date Status Rosuvastatin Calcium 20 MG 1 tab(s) oral ly once a day; Duration: 30 day(s) Active LISINOPRIL 5 mg 1 tab(s) orally once a day; Duration: 30 day(s) Active Lisinopril 5 MG 1 tab(s) orally once a day; Duration: 30 day(s) Active ROSUVASTATIN 20 mg 1 tab(s) orally once a day; Duration: 30 day(s) Active AMLODIPINE 2.5 mg 1 tab(s) orally once a day; Duration: 30 day(s) Active amLODIPine Besylate 2.5 MG 1 tab(s) oral ly once a day; Duration: 30 day(s) Active Problems Problem Type SNOMED Code ICD Code Onset Dates Problem Status W/U Status Risk Notes Problem Chronic migraine without aura, non-refractory (disorder) (763279800250979) Migraine without aura, not intractable, without status migrainosus (G43.009) Active confirmed Problem Migraine with aura (0522664) Migraine with aura, not intractable, without status migrainosus (G43.109) Active confirmed Problem Chronic migraine without aura, non-intractable (472839244174408) Chronic migraine without aura, not intractable, without status migrainosus (G43.709) Active confirmed Problem Lesion of ulnar nerve (046167088) Lesion of ulnar nerve, left upper limb (G56.22) Active confirmed Problem Hereditary disorder of nervous system (147901563) Hereditary and idiopathic neuropathy, unspecified (G60.9) Active confirmed Problem Polyneuropathy (93061156) Polyneuropathy, unspecified (G62.9) Active confirmed Problem Neuralgia (96015752) Neuralgia and neuritis, unspecified (M79.2) Active confirmed Problem Carpal tunnel syndrome (07138760) Carpal tunnel syndrome, bilateral upper limbs (G56.03) Active confirmed Plan Of Treatment Pending Test Test Name Order Date EMG (Electromyography) - 4 (four) Extrem ities 06/19/2023 Insurance Providers Payer Name Payer Address Payer Phone Subscriber Number Group Number Insured Name Patient Relationship to Insured Coverage Start Date Coverage End Date [employer] Medicare [address] [address] [place] [address] [id number] Magdiel Luevano Self - patient is the insured 3 Medical (General) History Medical History History ICD Code HLD HTN OA Peripheral neuropathy Lumbar DDD H/o skin cancer Carpal tunnel syndrome, bilateral Ulnar neuropathy at elbow, left Surgical History Surgery Date(Month/Year) Bioprosthetic aortic valve Appy CCK S/p L knee surgery S/p Lumbar spinal surgery x 2 S/p R carpal tunnel release S/p L carpal tunnel release S/p L cubital tunnel release
--- OUTSIDE RECORDS SUMMARY | 2025-05-06 09:55 | XMS_ITS | Clinical Summary ---
Author Organization [facility] Address [address] [place] [address] Care Team Providers Care Materials Director Name Role Phone Connor Rahman MD Primary Care Provider + Source Comments [facility],non-owned Affiliates and Associated Physician Practices is amultiple site organization consisting of ambulatory clinics and hospital sitesin [place], [place], [place] and [place]. This disclosure is being madepursuant to the Care Everywhere program and may not contain all information available regarding this patient. Last updated 18.[facility] Allergies No known active allergies Medications * Be aware that medications may not be up to date on this document. Alwaysverify current medications with the patient. polyethylene glycol 3350 (Miralax) 17 g packet Take 17 (seventeen) g by mouth once daily 03/16/2025 Active Active Problems Problem Noted Date Diagnosed Date Subdural hematoma 03/14/2025 Fall, initial encounter 03/14/2025 Closed nondisplaced fracture of first cervical vertebra, unspecified fracture morphology, initial encounter 03/14/2025 Closed wedge compression fra cture of T5 vertebra, initial encounter 03/14/2025 Syncope with normal neurologic examination 03/14 Encounters Date Type Department Care Team Description 04/19/2025 Orders Only [facility] - Orthopedics [address] [place] [address], [place] [address] Marshal Mendosa MD Closed nondisplaced fracture of first cervical vertebra, unspecified fracture morphology, initial encounter ([facility]) ; Closed wedge compression fracture of T5 vertebra, initial encounter ([facility]) 03/25/2025 Travel 03/13/2025 8:38 PM CDT - 03/15/2025 9:21 PM CDT Emergency [facility] [address] [place] [phone] Ventura Lopez MD Naughton, Daniel J, MD Closed wedge compression fracture of T5 vertebra, initial encounter ([facility]) (Primary Dx); Syncope with normal neurologic examination; Closed nondisplaced fracture of first cervical vertebra, unspecified fracture morphology, initial encounter (HCC); Fall, initial encounter; Subdural hematoma (HCC) Discharge Disposition: Home or Self Care 03/13/2025 Travel from Last 3 Months Social History Tobacco Use Types Packs/Day Years Used Date Smoking Tobacco: Never Smokeless Tobacco: Never Tobacco Cessation:Counseling Given: Not Answered Alcohol Use Standard Drinks/Week Comments Never 0 (1 standard drink = 0.6 oz pur e alcohol) AUDIT-C Answer Date Recorded Q1: How often do you have a drink containing alcohol? Never 03/14/2025 Q2: How many drinks containi ng alcohol do you have on a typical day when you are drinking? Patient does not drink Q3: How often do you have si x or more drinks on one occasion? Never 03/14/2025 Sex and Gender Information Value Date Recorded Sex Assigned at Not on file Legal Sex Male 8:39 AM CDT Gender Identity Not on file Sexual Orientation Not on file Last Filed Vital Signs Vital Sign Reading Time Taken Comments Blood Pressure 113/77 03/15/2025 8:00 PM CDT Pulse 72 03/15/2025 8:00 PM CDT Temperature 36.8 C (98.3 F) 03/14/2025 4:43 PM CDT Respiratory Rate 14 03/15/2025 8:00 PM CDT Oxygen Saturation 97% 03/15/2025 8:00 PM CDT Inhaled Oxygen Concentration - - Weight 86.6 kg (191 lb) 03/13/2025 8:43 PM CDT Height 185.4 cm (6' 1) 03/13/2025 8:43 PM CDT Body Mass Index 25.2 03/13/2025 8:43 PM CDT Plan of Treatment Health Maintenance Due Date Last Done Comments COLOGUARD (AGES 45-75) - COLON CA SCREENING 1952 COLON MONITORING 1952 COLONOSCOPY - COLON CA SCREENING 1952 CT COLONOGRAPHY - COLON CA SCREENING 1952 Colorectal Cancer Screening 1952 FIT - COLON CA SCREENING 1952 FLEX SIG - COLON CA SCREENING 1952 LIPID TESTING 1952 HEPATITIS C SCREENING 01/18/1970 DTAP/TDAP/TD VACCINES (1 - Tdap) 01/22/1971 PNEUMOCOCCAL VACCINE 50+ (1 of 1 - PCV) 01/22/2002 ZOSTER VACCINE (1 of 2) 01/22/2002 Respiratory Syncytial Virus (RSV) Vaccine Pt: or over 60 yrs (1 - Risk 60-74 years 1-dose series) 2012 DEPRESSION SCREENING 09/02/2024 MEDICARE AWV CALENDAR YEAR 2024 COVID-19 VACCINE ( season) 2025 07/18/2022, 03/14/2022, 08/17/2021, Additional history exists INFLUENZA VACCINE (#1) 2025 3, 07/18/2022, 08/17/2021, Additional history exists HEPATITIS B VACCINE Aged Out No longe r eligible based on patient's age to complete this topic HIB VACCINE Aged Out No longer eligi ble based on patient's age to complete this topic HPV VACCINE Aged Out No longer eligi ble based on patient's age to complete this topic MENINGOCOCCAL (Group B) VACCINE SHARED DECISION-MAKING Aged Out No longer eligible based on patient's age to complete this topic MENINGOCOCCAL GROUPS A/C/Y/W VACCINE Aged Out No longer eligible based on patient's age to complete this topic Procedures Procedure Name Priority Date/Time Associated Diagnosis Comments XR LUMBAR SPINE 2 OR 3VW Routine 03/15/2025 11:47 AM CDT Lesion of lumbar spine XR THORACIC SPINE 2VW Routine 03/15/2025 11:47 AM CDT Closed wedge compression fracture of T5 vertebra, initial encounter (HCC) XR CERVICAL SPINE 2 OR 3VW STAT 03/15/2025 11:12 AM CDT Fall, initial encounter URINE DRUG SCREEN IMMUNOASSAY STAT 03/14/2025 4:42 PM CDT ALCOHOL ETHYL BLOOD STAT 03/14/2025 1 :35 PM CDT MRI LUMBAR SPINE WWO CONTRAST STAT 03/14/2025 11:34 AM CDT Closed wedge compression fracture of T5 vertebra, initial encounter (HCC) Fall, initial encounter MRI CERVICAL SPINE WWO CONT Routine 03/14/2025 11:34 AM CDT Closed wedge compression fracture of T5 vertebra, initial encounter (HCC) Fall, initial encounter MRI THORACIC SPINE WWO CONT STAT 03/14/2025 11:27 AM CDT Closed wedge compression fracture of T5 vertebra, initial encounter (HCC) Fall, initial encounter BLOOD TYPE VERIFICATION STAT 03/14/2025 1:[address] CHEST PE W ABD PELVIS W CONT STAT 03/14/2025 1:49 AM CDT Syncope with normal neurologic examination CT LUMBAR SPINE WO CONTRAST STAT 03/14/2025 1:49 AM CDT Syncope with normal neurologic examination CT THORACIC SPINE WO CONTRAST STAT 03/14/2025 1:49 AM CDT Syncope with normal neurologic examination CT CERVICAL SPINE WO CONTRAST STAT 03/14/2025 1:49 AM CDT Syncope with normal neurologic examination CT HEAD WO CONTRAST STAT 03/14/2025 1 :49 AM CDT Syncope with normal neurologic examination XR CHEST 1VW STAT 03/14/2025 1:13 AM CDT Syncope with normal neurologic examination PREPARE RBC LEUKOREDUCED UNIT STAT 03/14/2025 12:40 AM CDT PARVEZ DIRECT C3 Routine 03/14/2025 12:4 0 AM CDT PARVEZ DIRECT IGG Routine 03/14/2025 12: 40 AM CDT ANTIBODY IDENTIFICATION Routine 03/14/2025 12:40 AM CDT PARVEZ DIRECT Routine 03/14/2025 12:40 AM CDT TYPE + SCREEN PANEL STAT 03/14/2025 1 2:40 AM CDT PT-INR STAT 03/14/2025 12:40 AM CDT B-TYPE NATRIURETIC PEPTIDE STAT 03/14/2025 12:40 AM CDT TROPONIN-I HIGH SENSITIVE REFLEX 1HOUR Timed 03/14/2025 12:40 AM CDT URINALYSIS REFLEX TO MICROSCOPIC NO CULTURE STAT 03/14/2025 12:40 AM CDT DIFFERENTIAL MANUAL STAT 03/13/2025 1 1:59 PM CDT TROPONIN-I HIGH SENSITIVE BASELINE + 1HR STAT 03/13/2025 11:59 PM CDT COMPREHENSIVE METABOLIC PANEL STAT 03/13/2025 11:59 PM CDT CBC W AUTO DIFFERENTIAL STAT 03/13/2025 11:59 PM CDT EKG 12-LEAD Routine 03/13/2025 11:54 PM CDT Syncope with normal neurologic examination from Last 3 Months Results * XR Lumbar Spine 2 or 3Vw (03/15/2025 11:47 AM CDT) Anatomical Region Laterality Modality Spine Digital Radiogra phy 03/15/2025 8:51 PM CDT Narrative 03/16/2025 1:58 AM CDT PROCEDURE: XR LUMBAR SPINE 2 OR 3VW, DATE/TIME OF EXAM: 03/15/2025 11:47 AM, LOCATION [facility] INDICATION: M89.9: Lesion of lumbar spine ADDITIONAL CLINICAL INFORMATION: Ordering Provider Reason For Exam: lesions COMPARISON: CT lumbar spine from 03/14/2025 TECHNIQUE: Frontal and lateral views of the lumbar spine. FINDINGS/IMPRESSION: Severe degenerative changes most prominent at level of L3/L4 with [id number]-jc-[id number] articulation and endplate sclerosis. Multiple anterior vertebral body osteophytes. Findings are better characterized on CT lumbar spine from 03/14/2025. > Dictated by Gil Fagan MD, (resident physician in radiology). Jordan Cochran MD have personally reviewed and interpreted this examination/study. > Interpreting Provider: Jordan Menjivar MD on 03/16/2025 1:58 AM Procedure Note Jordan Menjivar MD - 03/16/2025 PROCEDURE: XR LUMBAR SPINE 2 OR 3VW, DATE/TIME OF EXAM: 1:47 AM, LOCATION [facility] INDICATION: M89.9: Lesion of lumbar spine ADDITIONAL CLINICAL INFORMATION: Ordering Provider Reason For Exam: lesions COMPARISON: CT lumbar spine from 03/14/2025 TECHNIQUE: Frontal and lateral views of the lumbar spine. FINDINGS/IMPRESSION: Severe degenerative changes most prominent at level of L3/L4 with qrts-gq-rtrr articulation and endplate sclerosis. Multiple anterior vertebral body osteophytes. Findings are better characterized on CTlumbar spine from 03/14/2025. > Dictated by Gil Fagan MD, (resident physician in radiology). Jordan Cochran MD have personally reviewed and interpreted this examination/study. > Interpreting Provider: Jordan Menjivar MD on 03/16/2025 1:58 AM Belem Tijerina WARE CLEANER-PACKING TRACTOR MACHINE OPERATOR DIAGNOSTIC IMAGING ORDE RABLES Final Result * XR Thoracic Spine 2Vw (03/15/2025 11:47 AM CDT) Anatomical Region Laterality Modality Spine Digital Radiogra phy 03/15/2025 1:14 PM CDT Impressions 03/16/2025 1:57 AM CDT IMPRESSION: Redemonstrated poorly characterized T5 vertebral body pathological fracture, please refer to CT thoracic spine. Report was dictated by Markell Ortiz MD, ([facility] resident). Jordan Cochran MD have personally reviewed and interpreted this examination/study. > Interpreting Provider: Jordan Menjivar MD on 03/16/2025 1:57 AM Narrative 03/16/2025 1:57 AM CDT PROCEDURE: XR THORACIC SPINE 2VW, DATE/TIME OF EXAM: 03/15/2025 11:47 AM, LOCATION [facility] INDICATION:S22.050A: Closed wedge compression fracture of T5 vertebra, initial encounter ([facility]) Ordering Provider Reason For Exam: lesion COMPARISON: 03/14/2025 chest radiograph. FINDINGS: *Partially imaged c-collar. *Aortic valvular prosthesis is unchanged. Lungs are partially hyperinflated. Bridging syndesmophytes and ossification of the anterior longitudinal ligament at multiple levels suggest diffuse idiopathic skeletal hyperostosis (DISH). Multilevel degenerative changes of the thoracic and upper lumbar spine. There is no subluxation. Multilevel spondylosis with generalized demineralization. Partially imaged T5 vertebral body pathological fracture better depicted on anterior radiographs and characterized on CT thoracic spine from 03/14/2025. Procedure Note Jordan Menjivar MD - 03/16/2025 PROCEDURE: XR THORACIC SPINE 2VW, DATE/TIME OF EXAM: 03/15/2025 11:47AM, LOCATION [facility] INDICATION:S22.050A: Closed wedge compression fracture of T5 vertebra, initial encounter ([facility]) Ordering Provider Reason For Exam: lesion COMPARISON: 03/14/2025 chest radiograph. FINDINGS: *Partially imaged c-collar. *Aortic valvular prosthesis is unchanged. Lungs are partially hyperinflated. Bridging syndesmophytes andossification of the anterior longitudinal ligament at multiple levels suggest diffuse idiopathic skeletal hyperostosis (DISH). Multilevel degenerative changesof the thoracic and upper lumbar spine. There is no subluxation. Multilevel spondylosis with generalized demineralization. Partially imaged T5 vertebral body pathological fracture better depictedon anterior radiographs and characterized on CT thoracic spine from03/14/2025. IMPRESSION: Redemonstrated poorly characterized T5 vertebral body pathological fracture, please refer to CT thoracic spine. Report was dictated by Markell Ortiz MD, ([facility] resident). Jordan Cochran MD have personally reviewed and interpreted this examination/study. > Interpreting Provider: Jordan Menjivar MD on 03/16/2025 1:57 AM Belem Tijerina WARE CLEANER-PACKING TRACTOR MACHINE OPERATOR DIAGNOSTIC IMAGING ORDJohnnie THIBODEAUX Final Result * XR Cervical Spine 2 or 3Vw (03/15/2025 11:12 AM CDT) Anatomical Region Laterality Modality Spine Digital Radiogra phy 03/15/2025 1:41 PM CDT Impressions 03/15/2025 3:23 PM CDT IMPRESSION: Poorly imaged lateral C1 mass pathological fracture. Overall there is no subluxation on upright radiographs. Report was dictated by Markell Ortiz MD, ([facility] resident). IYuliana have personally reviewed and interpreted this examination/study. > Interpreting Provider: Yuliana Patino on 03/15/2025 3:23 PM Narrative 03/15/2025 3:23 PM CDT PROCEDURE: XR CERVICAL SPINE 2 OR 3VW, DATE/TIME OF EXAM: 03/15/2025 11:13 AM, LOCATION [facility] INDICATION:W19.XXXA: Fall, initial encounter Ordering Provider Reason For Exam: Cervical spine stability, films must be upright - MUST INCLUDE ODONTOID COMPARISON: MRI cervical spine 03/14/[address] cervical spine. FINDINGS: Previously described pathological fracture of the lateral C1 mass is not well depicted on this radiograph. Please refer to CT cervical spine. Overall, the osseous alignment is unchanged without subluxation. There is multilevel moderate to severe spondylosis with anterior bridging osteophyte. C-collar in place. Procedure Note Yuliana Rosenthal MD - 03/15/2025 PROCEDURE: XR CERVICAL SPINE 2 OR 3VW, DATE/TIME OF EXAM: 1:13 AM, LOCATION [facility] INDICATION:W19.XXXA: Fall, initial encounter Ordering Provider Reason For Exam: Cervical spine stability, films mustbe upright - MUST INCLUDE ODONTOID COMPARISON: MRI cervical spine 03/14/[address] cervical spine. FINDINGS: Previously described pathological fracture of the lateral C1 mass is not well depicted on this radiograph. Please refer to CT cervical spine. Overall, the osseous alignment is unchanged without subluxation. Thereis multilevel moderate to severe spondylosis with anterior bridging osteophyte. C-collar in place. IMPRESSION: Poorly imaged lateral C1 mass pathological fracture. Overall there is no subluxation on upright radiographs. Report was dictated by Markell Ortiz MD, ([facility] resident). I, Yuliana Patino have personally reviewed and interpreted this examination/study. > Interpreting Provider: Yuliana Patino on 03/15/2025 3:23 PM us Fletcher Zuniga MD DIAGNOSTIC IMAGING ORDERABL ES Final Result * (ABNORMAL) URINE DRUG SCREEN IMMUNOASSAY (03/14/2025 4:42 PM CDT) [facility] Amphetamines Screen Urine Negative Negative : < 1000 ng/mL 03/14/2025 5:24 PM [facility] Barbiturates Screen Urine Negative Negative : < 200 ng/mL 03/14/2025 5:24 PM [facility] Benzodiazepine Screen Urine Negative Negative : < 200 ng/mL 03/14/2025 5:24 PM [facility] Opiates Urine Positive(A) Negative : < 300 ng/mL 03/14/2025 5:24 PM [facility] Comment:Positive urine opiat e screening results should be confirmed by another generally accepted non-immunological method such as gas chromatography or mass spectrometry. Cocaine Metabolites Urine Negative Negative : < 300 ng/mL 03/14/2025 5:24 PM [facility] Phencyclidine Screen Urine Negative Negative : < 25 ng/ml 03/14/2025 5:24 PM [facility] Cannabinoids Screen Urine Negative Negative : <50 ng/mL 03/14/2025 5:24 PM [facility] Methadone Screen Urine Negative Negative : < 300 ng/mL 03/14/2025 5:24 PM [facility] Fentanyl Screen Urine Negative Negative : <1.5 ng/mL 03/14/2025 5:24 PM [facility] Urine URINE / Unknown Collection / Unknown 03/14/2025 4:42 PM CDT 03/14/2025 4:47 PM CDT [facility] - 03/14/2025 5:24 PM CDT The Urine Toxicology Screening Panel does not screen for Propoxyphene, Meprobamate, Carisoprodol, Trazodone, nois-bzh-zcsyzic medications and/or volatiles (Acetone, Isopropanol, Methanol or Ethylene Glycol). Ethanol, Salicylate, Acetaminophen, Tricyclic Antidepressants and several therapeutic drugs may be individually assayed in serum or plasma specimen. Toxicology testing by the [facility] is an aid to medical diagnosis and treatment of patients. No documented chain of custody was maintained. Results are intended to be used for clinical purposes only. Fletcher Zuniga MD LAB - URINE CHEMISTRY ORDER CHRISTY Final Result Performing Organization Address [facility]/ZIP Co de Phone Number [address] [address], [place] [phone] * ALCOHOL ETHYL BLOOD (03/14/2025 1:35 PM CDT) Ethanol (mg/dL) <10 <10 mg/dL 2:05 PM CDT [facility] Ethanol Calculated (g/dL) <0.010 <=0.010 g/dL 03/14/2025 2:05 PM T [facility] Blood BLOOD SPECIMEN / Unknown Venipuncture / Unknown 03/14/2025 1:35 PM CDT 03/14/2025 1:38 PM CDT Narrative [facility] - 03/14/2025 2:05 PM CDT Ethanol Interp <10: None Detected. Depression of ROPE LAYING MACHINE OPERATOR: >100 mg/dl Potentially Critical: >250 mg/dl Potentially Fatal >400 mg/dl Ethanol in the patient's blood will contribute to the osmolar gap. Ethanol's contribution to the osmolar gap can be estimated by dividing the concentration of ethanol in mg/dL by 4.6. This test is for clinical use only and does not equal a JENNIFER for legal purposes. us Fletcher Zuniga MD LAB - CHEMISTRY ORDERABLES Final Result Performing Organization Address [facility]/ZIP Co de Phone Number [address] [address], [place] [phone] * MRI Lumbar Spine Wwo Contrast (03/14/2025 11:34 AM CDT) Anatomical Region Laterality Modality Spine Magnetic Resonan ce 03/15/2025 1:41 PM CDT Impressions 03/15/2025 6:00 PM CDT IMPRESSION: 1.Heterogenous bone marrow signal in the heterogenous enhancement throughout the imaged axial and appendicular skeleton, compatible with diffuse osseous metastases. 2.Pathologic fractures at the left lateral mass of C5 and the T5 vertebral body with up to 50% of vertebral body height loss and no significant retropulsion. 3.Enhancement along the dorsal spinal canal extending from the foramen magnum to C3 may represent reactive changes related to the C1 pathologic fracture versus epidural metastatic disease. 4.Large retroperitoneal mass, compatible with patient's known carcinoma. Please refer to the prior CT of the chest, abdomen, and pelvis from 03/14/2025 for the nonosseous findings. > Dictated by Lon Dubose D.O. - Diagnostic Credit Collector. I, Cherelle Weiner MD have personally reviewed and interpreted this examination/study. > Interpreting Provider: Cherelle Weiner MD on 03/15/2025 6:00 PM Narrative 03/15/2025 6:00 PM CDT PROCEDURE: MRI THORACIC SPINE WWO CONT, MRI LUMBAR SPINE WWO CONTRAST, MRI CERVICAL SPINE WWO CONT, DATE/TIME OF EXAM: 03/14/2025 11:30 AM, LOCATION [facility] INDICATION: S22.050A: Closed wedge compression fracture of T5 vertebra, initial encounter ([facility]) W19.XXXA: Fall, initial encounter Ordering Provider Reason For Exam: Stability of thoracic spine, known lesion characteristics (accession [id number]), lytic lesions in the spine (accession [id number]), Status of known metastatic lesions and stability of spine (accession [id number]) EXAMINATION: Magnetic resonance imaging (MRI) of the cervical, thoracic, and lumbar spine without and with contrast TECHNIQUE: MRI of the cervical, thoracic, and lumbar spine was performed prior to and following the uneventful administration of 8.5 mL intravenous GADAVIST contrast according to standard protocol. COMPARISON: CT of the cervical, thoracic and lumbar spine from 03/14/2025. FINDINGS: Cervical spine: Subtle heterogenous bone marrow signal and patchy enhancement throughout the imaged cervical spine, skull base, and the posterior elements, compatible with diffuse osseous metastases. There is minimal retrolisthesis of C3 on C4 and C4 on C5, no evidence of traumatic malalignment. There is a lytic lesion characterized by enhancement within the left lateral mass of C1 extending into the left side of the posterior arch with associated pathologic fracture. There is heterogenous bone marrow signal intensity throughout the cervical spine. Focal regions of elevated T2/STIR signal intensity and enhancement are noted within the left articular pillar of C5 and the right articular pillar of C4. Subtle superior endplate compression deformity of the C5 vertebral body with subtle FLAIR hyperintensity. Findings are nonspecific however could represent subtle compression fracture. There is increased fluid within the left C1-T2 joint space and lateral displacement of the right lateral mass of C1 on C2 measuring 3.3 mm related to the C1 pathologic fracture at the left lateral mass. The spinal cord appears normal. There is mild enhancement along the dorsal spinal canal extending from the foramen magnum to the level of C3. There is moderate disc height loss at multiple levels. There is up to moderate spinal canal stenosis related to diffuse posterior disc bulges and ligamentum flavum hypertrophy, worst at the level of C4-5. There are varying degrees of moderate facet osteoarthritis. There are varying degrees of mild uncovertebral joint osteoarthritis various degrees of moderate to severe neuroforaminal stenosis are present, worst at C4-5 on the right and C5-6 on the left. No soft tissue abnormality is identified. Normal flow voids are identified in the vertebral arteries. Thoracic spine: Diffuse heterogenous bone marrow signal and diffuse enhancement throughout the imaged thoracic spine, the ribs, and the visualized cervical and lumbar spine, compatible with diffuse osseous metastases. The alignment is normal. Multiple foci of STIR signal hyperintensity and enhancement are present involving the posterior vertebral bodies of T3, T4, T5, T10, T11, and also the left anterior aspect of T12. STIR signal hyperintensity and enhancement is also noted within the posterior elements of T3 involving the spinous process, and the left lamina and articular pillar extending into the pedicle, the posterior elements of T4 involving the spinous process, left pedicle and the right articular pillar, the spinous process of T8, the left transverse process of T10, the T11 spinous process and right transverse process/pedicle and the right transverse process of T12. Subtle superior endplate deformity of T5 may represent acute pathologic compression fracture STIR signal hyperintensity and enhancement within the T5 vertebral body associated with metastatic disease limit the ability to detect an acute pathologic compression fracture. The spinal cord appears normal. The anterior and posterior longitudinal ligaments as well as the posterior ligamentous complex appear intact. There is mild degenerative disc disease. No central canal stenosis is seen. There is mild facet joint osteoarthritis. Neural foraminal stenosis is seen at multiple levels. Enhancing lesions of multiple bilateral ribs posteriorly is present. Increased STIR signal intensity and enhancement within the left paraspinal musculature of the upper thoracic spine, possibly local spread of disease. Lumbar spine: Heterogenous bone marrow signal throughout the imaged lumbar spine and the bones of the pelvis, compatible with diffuse osseous metastases. The alignment is normal. Vertebral bodies are normal in height without evidence of compression fractures. Scattered T1 signal hypointensities with associated enhancement representing metastatic lesions are visible within the L1, L3, and L5 vertebral bodies, in addition to the visible S1-3 segments of the sacral body. The conus medullaris terminates at the level of L1 and the distal spinal cord signal intensity is normal. The anterior and posterior longitudinal ligaments as well as the posterior ligamentous complex appear intact. There is moderate to severe disc height loss at multiple levels. Various degrees of mild to moderate spinal canal stenosis related to diffuse posterior disc bulges and posterior vertebral body osteophyte complex formation. There are varying degrees of moderate to severe facet osteoarthritis. Various degrees of moderate to severe neural foraminal stenosis are present. A large retroperitoneal mass is again noted, better assessed on the prior CT of the chest, abdomen, and pelvis from 03/14/2025. Procedure Note Cherelle Weiner MD - 03/15/2025 PROCEDURE: MRI THORACIC SPINE WWO CONT, MRI LUMBAR SPINE WWO CONTRAST,MRI CERVICAL SPINE WWO CONT, DATE/TIME OF EXAM: 03/14/2025 11:30 AM, LOCATION [facility] INDICATION: S22.050A: Closed wedge compression fracture of T5 vertebra, initial encounter ([facility]) W19.XXXA: Fall, initial encounter Ordering Provider Reason For Exam: Stability of thoracic spine, known lesion characteristics (accession [id number]), lytic lesions in the spine (accession [id number]), Status of known metastatic lesions and stabilityof spine (accession [id number]) EXAMINATION: Magnetic resonance imaging (MRI) of the cervical, thoracic, and lumbar spine without and with contrast TECHNIQUE: MRI of the cervical, thoracic, and lumbar spine was performed prior to and following the uneventful administration of 8.5 mLintravenous GADAVIST contrast according to standard protocol. COMPARISON: CT of the cervical, thoracic and lumbar spine from 03/14/2025. FINDINGS: Cervical spine: Subtle heterogenous bone marrow signal and patchy enhancement throughout the imaged cervical spine, skull base, and the posterior elements, compatible with diffuse osseous metastases. There is minimal retrolisthesis of C3 on C4 and C4 on C5, no evidence of traumatic malalignment. There is a lytic lesion characterized by enhancement within the left lateral mass of C1 extending into the leftside of the posterior arch with associated pathologic fracture. There is heterogenous bone marrow signal intensity throughout the cervical spine. Focal regions of elevated T2/STIR signal intensity and enhancement are noted within the left articular pillar of C5 and the right articularpillar of C4. Subtle superior endplate compression deformity of the [id number] body with subtle FLAIR hyperintensity. Findings are nonspecific however could represent subtle compression fracture. There is increased fluid within the left C1-T2 joint space and lateral displacement of the right lateral mass of C1 on C2 measuring 3.3 mm related to the C1 pathologic fracture at the left lateral mass. The spinal cord appears normal. Thereis mild enhancement along the dorsal spinal canal extending from theforamen magnum to the level of C3. There is moderate disc height loss at multiple levels. There is up to moderate spinal canal stenosis related to diffuse posterior disc bulgesand ligamentum flavum hypertrophy, worst at the level of C4-5. There are varying degrees of moderate facet osteoarthritis. There are varyingdegrees of mild uncovertebral joint osteoarthritis various degrees of moderateto severe neuroforaminal stenosis are present, worst at C4-5 on the rightand C5-6 on the left. No soft tissue abnormality is identified. Normal flow voids are identified in the vertebral arteries. Thoracic spine: Diffuse heterogenous bone marrow signal and diffuse enhancementthroughout the imaged thoracic spine, the ribs, and the visualized cervical andlumbar spine, compatible with diffuse osseous metastases. The alignment is normal. Multiple foci of STIR signal hyperintensity and enhancement are present involving the posterior vertebral bodies of T3,T4, T5, T10, T11, and also the left anterior aspect of T12. STIR signal hyperintensity and enhancement is also noted within the posteriorelements of T3 involving the spinous process, and the left lamina and articular pillar extending into the pedicle, the posterior elements of [id number] the spinous process, left pedicle and the right articular pillar, the spinous process of T8, the left transverse process of T10, the [id number] process and right transverse process/pedicle and the right transverse process of T12. Subtle superior endplate deformity of T5 may represent acute pathologic compression fracture STIR signal hyperintensity and enhancement within the T5 vertebral body associated with metastaticdisease limit the ability to detect an acute pathologic compression fracture.The spinal cord appears normal. The anterior and posterior longitudinal ligaments as well as the posterior ligamentous complex appear intact. There is mild degenerative disc disease. No central canal stenosis isseen. There is mild facet joint osteoarthritis. Neural foraminal stenosis isseen at multiple levels. Enhancing lesions of multiple bilateral ribs posteriorly is present. Increased STIR signal intensity and enhancement within the left paraspinal musculature of the upper thoracic spine, possibly local spread of disease. Lumbar spine: Heterogenous bone marrow signal throughout the imaged lumbar spine andthe bones of the pelvis, compatible with diffuse osseous metastases. The alignment is normal. Vertebral bodies are normal in height without evidence of compression fractures. Scattered T1 signal hypointensitieswith associated enhancement representing metastatic lesions are visiblewithin the L1, L3, and L5 vertebral bodies, in addition to the visible S1-3 segments of the sacral body. The conus medullaris terminates at thelevel of L1 and the distal spinal cord signal intensity is normal. Theanterior and posterior longitudinal ligaments as well as the posteriorligamentous complex appear intact. There is moderate to severe disc height loss at multiple levels. Various degrees of mild to moderate spinal canal stenosis related to diffuse posterior disc bulges and posterior vertebral body osteophyte complex formation. There are varying degrees of moderate to severe facet osteoarthritis. Various degrees of moderate to severe neural foraminal stenosis are present. A large retroperitoneal mass is again noted,better assessed on the prior CT of the chest, abdomen, and pelvis from03/14/2025. IMPRESSION: 1.Heterogenous bone marrow signal in the heterogenous enhancement throughout the imaged axial and appendicular skeleton, compatible with diffuse osseous metastases. 2.Pathologic fractures at the left lateral mass of C5 and the [id number] body with up to 50% of vertebral body height loss and no significant retropulsion. 3.Enhancement along the dorsal spinal canal extending from the foramen magnum to C3 may represent reactive changes related to the C1 pathologic fracture versus epidural metastatic disease. 4.Large retroperitoneal mass, compatible with patient's known carcinoma. Please refer to the prior CT of the chest, abdomen, and pelvis from 03/14/2025 for the nonosseous findings. > Dictated by Lon Dubose D.O. - Diagnostic Credit Collector. Cherelle Cochran MD have personally reviewed and interpretedthis examination/study. > Interpreting Provider: Cherelle Weiner MD on 03/15/2025 6:00 PM Marshal Mendosa MD MR ORDERABLES Final Result * MRI Cervical Spine Wwo Cont (03/14/2025 11:34 AM CDT) Anatomical Region Laterality Modality Spine Magnetic Resonan ce 03/15/2025 1:41 PM CDT Impressions 03/15/2025 6:00 PM CDT IMPRESSION: 1.Heterogenous bone marrow signal in the heterogenous enhancement throughout the imaged axial and appendicular skeleton, compatible with diffuse osseous metastases. 2.Pathologic fractures at the left lateral mass of C5 and the T5 vertebral body with up to 50% of vertebral body height loss and no significant retropulsion. 3.Enhancement along the dorsal spinal canal extending from the foramen magnum to C3 may represent reactive changes related to the C1 pathologic fracture versus epidural metastatic disease. 4.Large retroperitoneal mass, compatible with patient's known carcinoma. Please refer to the prior CT of the chest, abdomen, and pelvis from 03/14/2025 for the nonosseous findings. > Dictated by Lon Dubose D.O. - Diagnostic Credit Collector. Cherelle Cochran MD have personally reviewed and interpreted this examination/study. > Interpreting Provider: Cherelle Weiner MD on 03/15/2025 6:00 PM Narrative 03/15/2025 6:00 PM CDT PROCEDURE: MRI THORACIC SPINE WWO CONT, MRI LUMBAR SPINE WWO CONTRAST, MRI CERVICAL SPINE WWO CONT, DATE/TIME OF EXAM: 03/14/2025 11:30 AM, LOCATION [facility] INDICATION: S22.050A: Closed wedge compression fracture of T5 vertebra, initial encounter ([facility]) W19.XXXA: Fall, initial encounter Ordering Provider Reason For Exam: Stability of thoracic spine, known lesion characteristics (accession [id number]), lytic lesions in the spine (accession [id number]), Status of known metastatic lesions and stability of spine (accession [id number]) EXAMINATION: Magnetic resonance imaging (MRI) of the cervical, thoracic, and lumbar spine without and with contrast TECHNIQUE: MRI of the cervical, thoracic, and lumbar spine was performed prior to and following the uneventful administration of 8.5 mL intravenous GADAVIST contrast according to standard protocol. COMPARISON: CT of the cervical, thoracic and lumbar spine from 03/14/2025. FINDINGS: Cervical spine: Subtle heterogenous bone marrow signal and patchy enhancement throughout the imaged cervical spine, skull base, and the posterior elements, compatible with diffuse osseous metastases. There is minimal retrolisthesis of C3 on C4 and C4 on C5, no evidence of traumatic malalignment. There is a lytic lesion characterized by enhancement within the left lateral mass of C1 extending into the left side of the posterior arch with associated pathologic fracture. There is heterogenous bone marrow signal intensity throughout the cervical spine. Focal regions of elevated T2/STIR signal intensity and enhancement are noted within the left articular pillar of C5 and the right articular pillar of C4. Subtle superior endplate compression deformity of the C5 vertebral body with subtle FLAIR hyperintensity. Findings are nonspecific however could represent subtle compression fracture. There is increased fluid within the left C1-T2 joint space and lateral displacement of the right lateral mass of C1 on C2 measuring 3.3 mm related to the C1 pathologic fracture at the left lateral mass. The spinal cord appears normal. There is mild enhancement along the dorsal spinal canal extending from the foramen magnum to the level of C3. There is moderate disc height loss at multiple levels. There is up to moderate spinal canal stenosis related to diffuse posterior disc bulges and ligamentum flavum hypertrophy, worst at the level of C4-5. There are varying degrees of moderate facet osteoarthritis. There are varying degrees of mild uncovertebral joint osteoarthritis various degrees of moderate to severe neuroforaminal stenosis are present, worst at C4-5 on the right and C5-6 on the left. No soft tissue abnormality is identified. Normal flow voids are identified in the vertebral arteries. Thoracic spine: Diffuse heterogenous bone marrow signal and diffuse enhancement throughout the imaged thoracic spine, the ribs, and the visualized cervical and lumbar spine, compatible with diffuse osseous metastases. The alignment is normal. Multiple foci of STIR signal hyperintensity and enhancement are present involving the posterior vertebral bodies of T3, T4, T5, T10, T11, and also the left anterior aspect of T12. STIR signal hyperintensity and enhancement is also noted within the posterior elements of T3 involving the spinous process, and the left lamina and articular pillar extending into the pedicle, the posterior elements of T4 involving the spinous process, left pedicle and the right articular pillar, the spinous process of T8, the left transverse process of T10, the T11 spinous process and right transverse process/pedicle and the right transverse process of T12. Subtle superior endplate deformity of T5 may represent acute pathologic compression fracture STIR signal hyperintensity and enhancement within the T5 vertebral body associated with metastatic disease limit the ability to detect an acute pathologic compression fracture. The spinal cord appears normal. The anterior and posterior longitudinal ligaments as well as the posterior ligamentous complex appear intact. There is mild degenerative disc disease. No central canal stenosis is seen. There is mild facet joint osteoarthritis. Neural foraminal stenosis is seen at multiple levels. Enhancing lesions of multiple bilateral ribs posteriorly is present. Increased STIR signal intensity and enhancement within the left paraspinal musculature of the upper thoracic spine, possibly local spread of disease. Lumbar spine: Heterogenous bone marrow signal throughout the imaged lumbar spine and the bones of the pelvis, compatible with diffuse osseous metastases. The alignment is normal. Vertebral bodies are normal in height without evidence of compression fractures. Scattered T1 signal hypointensities with associated enhancement representing metastatic lesions are visible within the L1, L3, and L5 vertebral bodies, in addition to the visible S1-3 segments of the sacral body. The conus medullaris terminates at the level of L1 and the distal spinal cord signal intensity is normal. The anterior and posterior longitudinal ligaments as well as the posterior ligamentous complex appear intact. There is moderate to severe disc height loss at multiple levels. Various degrees of mild to moderate spinal canal stenosis related to diffuse posterior disc bulges and posterior vertebral body osteophyte complex formation. There are varying degrees of moderate to severe facet osteoarthritis. Various degrees of moderate to severe neural foraminal stenosis are present. A large retroperitoneal mass is again noted, better assessed on the prior CT of the chest, abdomen, and pelvis from 03/14/2025. Procedure Note Cherelle Weiner MD - 03/15/2025 PROCEDURE: MRI THORACIC SPINE WWO CONT, MRI LUMBAR SPINE WWO CONTRAST,MRI CERVICAL SPINE WWO CONT, DATE/TIME OF EXAM: 03/14/2025 11:30 AM, LOCATION [facility] INDICATION: S22.050A: Closed wedge compression fracture of T5 vertebra, initial encounter ([facility]) W19.XXXA: Fall, initial encounter Ordering Provider Reason For Exam: Stability of thoracic spine, known lesion characteristics (accession [id number]), lytic lesions in the spine (accession [id number]), Status of known metastatic lesions and stabilityof spine (accession [id number]) EXAMINATION: Magnetic resonance imaging (MRI) of the cervical, thoracic, and lumbar spine without and with contrast TECHNIQUE: MRI of the cervical, thoracic, and lumbar spine was performed prior to and following the uneventful administration of 8.5 mLintravenous GADAVIST contrast according to standard protocol. COMPARISON: CT of the cervical, thoracic and lumbar spine from 03/14/2025. FINDINGS: Cervical spine: Subtle heterogenous bone marrow signal and patchy enhancement throughout the imaged cervical spine, skull base, and the posterior elements, compatible with diffuse osseous metastases. There is minimal retrolisthesis of C3 on C4 and C4 on C5, no evidence of traumatic malalignment. There is a lytic lesion characterized by enhancement within the left lateral mass of C1 extending into the leftside of the posterior arch with associated pathologic fracture. There is heterogenous bone marrow signal intensity throughout the cervical spine. Focal regions of elevated T2/STIR signal intensity and enhancement are noted within the left articular pillar of C5 and the right articularpillar of C4. Subtle superior endplate compression deformity of the H6nvjfmxeda body with subtle FLAIR hyperintensity. Findings are nonspecific however could represent subtle compression fracture. There is increased fluid within the left C1-T2 joint space and lateral displacement of the right lateral mass of C1 on C2 measuring 3.3 mm related to the C1 pathologic fracture at the left lateral mass. The spinal cord appears normal. Thereis mild enhancement along the dorsal spinal canal extending from theforamen magnum to the level of C3. There is moderate disc height loss at multiple levels. There is up to moderate spinal canal stenosis related to diffuse posterior disc bulgesand ligamentum flavum hypertrophy, worst at the level of C4-5. There are varying degrees of moderate facet osteoarthritis. There are varyingdegrees of mild uncovertebral joint osteoarthritis various degrees of moderateto severe neuroforaminal stenosis are present, worst at C4-5 on the rightand C5-6 on the left. No soft tissue abnormality is identified. Normal flow voids are identified in the vertebral arteries. Thoracic spine: Diffuse heterogenous bone marrow signal and diffuse enhancementthroughout the imaged thoracic spine, the ribs, and the visualized cervical andlumbar spine, compatible with diffuse osseous metastases. The alignment is normal. Multiple foci of STIR signal hyperintensity and enhancement are present involving the posterior vertebral bodies of T3,T4, T5, T10, T11, and also the left anterior aspect of T12. STIR signal hyperintensity and enhancement is also noted within the posteriorelements of T3 involving the spinous process, and the left lamina and articular pillar extending into the pedicle, the posterior elements of [id number] the spinous process, left pedicle and the right articular pillar, the spinous process of T8, the left transverse process of T10, the [id number] process and right transverse process/pedicle and the right transverse process of T12. Subtle superior endplate deformity of T5 may represent acute pathologic compression fracture STIR signal hyperintensity and enhancement within the T5 vertebral body associated with metastaticdisease limit the ability to detect an acute pathologic compression fracture.The spinal cord appears normal. The anterior and posterior longitudinal ligaments as well as the posterior ligamentous complex appear intact. There is mild degenerative disc disease. No central canal stenosis isseen. There is mild facet joint osteoarthritis. Neural foraminal stenosis isseen at multiple levels. Enhancing lesions of multiple bilateral ribs posteriorly is present. Increased STIR signal intensity and enhancement within the left paraspinal musculature of the upper thoracic spine, possibly local spread of disease. Lumbar spine: Heterogenous bone marrow signal throughout the imaged lumbar spine andthe bones of the pelvis, compatible with diffuse osseous metastases. The alignment is normal. Vertebral bodies are normal in height without evidence of compression fractures. Scattered T1 signal hypointensitieswith associated enhancement representing metastatic lesions are visiblewithin the L1, L3, and L5 vertebral bodies, in addition to the visible S1-3 segments of the sacral body. The conus medullaris terminates at thelevel of L1 and the distal spinal cord signal intensity is normal. Theanterior and posterior longitudinal ligaments as well as the posteriorligamentous complex appear intact. There is moderate to severe disc height loss at multiple levels. Various degrees of mild to moderate spinal canal stenosis related to diffuse posterior disc bulges and posterior vertebral body osteophyte complex formation. There are varying degrees of moderate to severe facet osteoarthritis. Various degrees of moderate to severe neural foraminal stenosis are present. A large retroperitoneal mass is again noted,better assessed on the prior CT of the chest, abdomen, and pelvis from03/14/2025. IMPRESSION: 1.Heterogenous bone marrow signal in the heterogenous enhancement throughout the imaged axial and appendicular skeleton, compatible with diffuse osseous metastases. 2.Pathologic fractures at the left lateral mass of C5 and the [id number] body with up to 50% of vertebral body height loss and no significant retropulsion. 3.Enhancement along the dorsal spinal canal extending from the foramen magnum to C3 may represent reactive changes related to the C1 pathologic fracture versus epidural metastatic disease. 4.Large retroperitoneal mass, compatible with patient's known carcinoma. Please refer to the prior CT of the chest, abdomen, and pelvis from 03/14/2025 for the nonosseous findings. > Dictated by Lno Dubose D.O. - Diagnostic Credit Collector. I, Cherelle Weiner MD have personally reviewed and interpretedthis examination/study. > Interpreting Provider: Cherelle Weiner MD on 03/15/2025 6:00 PM Ventura Lopez MD MR ORDERABLES Final Result * MRI Thoracic Spine Wwo Cont (03/14/2025 11:27 AM CDT) Anatomical Region Laterality Modality Spine Magnetic Resonan ce 03/15/2025 1:41 PM CDT Impressions 03/15/2025 6:00 PM CDT IMPRESSION: 1.Heterogenous bone marrow signal in the heterogenous enhancement throughout the imaged axial and appendicular skeleton, compatible with diffuse osseous metastases. 2.Pathologic fractures at the left lateral mass of C5 and the T5 vertebral body with up to 50% of vertebral body height loss and no significant retropulsion. 3.Enhancement along the dorsal spinal canal extending from the foramen magnum to C3 may represent reactive changes related to the C1 pathologic fracture versus epidural metastatic disease. 4.Large retroperitoneal mass, compatible with patient's known carcinoma. Please refer to the prior CT of the chest, abdomen, and pelvis from 03/14/2025 for the nonosseous findings. > Dictated by Lon Dubose D.O. - Diagnostic Credit Collector. Cherelle Cochran MD have personally reviewed and interpreted this examination/study. > Interpreting Provider: Cherelle Weiner MD on 03/15/2025 6:00 PM Narrative 03/15/2025 6:00 PM CDT PROCEDURE: MRI THORACIC SPINE WWO CONT, MRI LUMBAR SPINE WWO CONTRAST, MRI CERVICAL SPINE WWO CONT, DATE/TIME OF EXAM: 03/14/2025 11:30 AM, LOCATION [facility] INDICATION: S22.050A: Closed wedge compression fracture of T5 vertebra, initial encounter ([facility]) W19.XXXA: Fall, initial encounter Ordering Provider Reason For Exam: Stability of thoracic spine, known lesion characteristics (accession [id number]), lytic lesions in the spine (accession [id number]), Status of known metastatic lesions and stability of spine (accession [id number]) EXAMINATION: Magnetic resonance imaging (MRI) of the cervical, thoracic, and lumbar spine without and with contrast TECHNIQUE: MRI of the cervical, thoracic, and lumbar spine was performed prior to and following the uneventful administration of 8.5 mL intravenous GADAVIST contrast according to standard protocol. COMPARISON: CT of the cervical, thoracic and lumbar spine from 03/14/2025. FINDINGS: Cervical spine: Subtle heterogenous bone marrow signal and patchy enhancement throughout the imaged cervical spine, skull base, and the posterior elements, compatible with diffuse osseous metastases. There is minimal retrolisthesis of C3 on C4 and C4 on C5, no evidence of traumatic malalignment. There is a lytic lesion characterized by enhancement within the left lateral mass of C1 extending into the left side of the posterior arch with associated pathologic fracture. There is heterogenous bone marrow signal intensity throughout the cervical spine. Focal regions of elevated T2/STIR signal intensity and enhancement are noted within the left articular pillar of C5 and the right articular pillar of C4. Subtle superior endplate compression deformity of the C5 vertebral body with subtle FLAIR hyperintensity. Findings are nonspecific however could represent subtle compression fracture. There is increased fluid within the left C1-T2 joint space and lateral displacement of the right lateral mass of C1 on C2 measuring 3.3 mm related to the C1 pathologic fracture at the left lateral mass. The spinal cord appears normal. There is mild enhancement along the dorsal spinal canal extending from the foramen magnum to the level of C3. There is moderate disc height loss at multiple levels. There is up to moderate spinal canal stenosis related to diffuse posterior disc bulges and ligamentum flavum hypertrophy, worst at the level of C4-5. There are varying degrees of moderate facet osteoarthritis. There are varying degrees of mild uncovertebral joint osteoarthritis various degrees of moderate to severe neuroforaminal stenosis are present, worst at C4-5 on the right and C5-6 on the left. No soft tissue abnormality is identified. Normal flow voids are identified in the vertebral arteries. Thoracic spine: Diffuse heterogenous bone marrow signal and diffuse enhancement throughout the imaged thoracic spine, the ribs, and the visualized cervical and lumbar spine, compatible with diffuse osseous metastases. The alignment is normal. Multiple foci of STIR signal hyperintensity and enhancement are present involving the posterior vertebral bodies of T3, T4, T5, T10, T11, and also the left anterior aspect of T12. STIR signal hyperintensity and enhancement is also noted within the posterior elements of T3 involving the spinous process, and the left lamina and articular pillar extending into the pedicle, the posterior elements of T4 involving the spinous process, left pedicle and the right articular pillar, the spinous process of T8, the left transverse process of T10, the T11 spinous process and right transverse process/pedicle and the right transverse process of T12. Subtle superior endplate deformity of T5 may represent acute pathologic compression fracture STIR signal hyperintensity and enhancement within the T5 vertebral body associated with metastatic disease limit the ability to detect an acute pathologic compression fracture. The spinal cord appears normal. The anterior and posterior longitudinal ligaments as well as the posterior ligamentous complex appear intact. There is mild degenerative disc disease. No central canal stenosis is seen. There is mild facet joint osteoarthritis. Neural foraminal stenosis is seen at multiple levels. Enhancing lesions of multiple bilateral ribs posteriorly is present. Increased STIR signal intensity and enhancement within the left paraspinal musculature of the upper thoracic spine, possibly local spread of disease. Lumbar spine: Heterogenous bone marrow signal throughout the imaged lumbar spine and the bones of the pelvis, compatible with diffuse osseous metastases. The alignment is normal. Vertebral bodies are normal in height without evidence of compression fractures. Scattered T1 signal hypointensities with associated enhancement representing metastatic lesions are visible within the L1, L3, and L5 vertebral bodies, in addition to the visible S1-3 segments of the sacral body. The conus medullaris terminates at the level of L1 and the distal spinal cord signal intensity is normal. The anterior and posterior longitudinal ligaments as well as the posterior ligamentous complex appear intact. There is moderate to severe disc height loss at multiple levels. Various degrees of mild to moderate spinal canal stenosis related to diffuse posterior disc bulges and posterior vertebral body osteophyte complex formation. There are varying degrees of moderate to severe facet osteoarthritis. Various degrees of moderate to severe neural foraminal stenosis are present. A large retroperitoneal mass is again noted, better assessed on the prior CT of the chest, abdomen, and pelvis from 03/14/2025. Procedure Note Cherelle Weiner MD - 03/15/2025 PROCEDURE: MRI THORACIC SPINE WWO CONT, MRI LUMBAR SPINE WWO CONTRAST,MRI CERVICAL SPINE WWO CONT, DATE/TIME OF EXAM: 03/14/2025 11:30 AM, LOCATION [facility] INDICATION: S22.050A: Closed wedge compression fracture of T5 vertebra, initial encounter ([facility]) W19.XXXA: Fall, initial encounter Ordering Provider Reason For Exam: Stability of thoracic spine, known lesion characteristics (accession [id number]), lytic lesions in the spine (accession [id number]), Status of known metastatic lesions and stabilityof spine (accession [id number]) EXAMINATION: Magnetic resonance imaging (MRI) of the cervical, thoracic, and lumbar spine without and with contrast TECHNIQUE: MRI of the cervical, thoracic, and lumbar spine was performed prior to and following the uneventful administration of 8.5 mLintravenous GADAVIST contrast according to standard protocol. COMPARISON: CT of the cervical, thoracic and lumbar spine from 03/14/2025. FINDINGS: Cervical spine: Subtle heterogenous bone marrow signal and patchy enhancement throughout the imaged cervical spine, skull base, and the posterior elements, compatible with diffuse osseous metastases. There is minimal retrolisthesis of C3 on C4 and C4 on C5, no evidence of traumatic malalignment. There is a lytic lesion characterized by enhancement within the left lateral mass of C1 extending into the leftside of the posterior arch with associated pathologic fracture. There is heterogenous bone marrow signal intensity throughout the cervical spine. Focal regions of elevated T2/STIR signal intensity and enhancement are noted within the left articular pillar of C5 and the right articularpillar of C4. Subtle superior endplate compression deformity of the [id number] body with subtle FLAIR hyperintensity. Findings are nonspecific however could represent subtle compression fracture. There is increased fluid within the left C1-T2 joint space and lateral displacement of the right lateral mass of C1 on C2 measuring 3.3 mm related to the C1 pathologic fracture at the left lateral mass. The spinal cord appears normal. Thereis mild enhancement along the dorsal spinal canal extending from theforamen magnum to the level of C3. There is moderate disc height loss at multiple levels. There is up to moderate spinal canal stenosis related to diffuse posterior disc bulgesand ligamentum flavum hypertrophy, worst at the level of C4-5. There are varying degrees of moderate facet osteoarthritis. There are varyingdegrees of mild uncovertebral joint osteoarthritis various degrees of moderateto severe neuroforaminal stenosis are present, worst at C4-5 on the rightand C5-6 on the left. No soft tissue abnormality is identified. Normal flow voids are identified in the vertebral arteries. Thoracic spine: Diffuse heterogenous bone marrow signal and diffuse enhancementthroughout the imaged thoracic spine, the ribs, and the visualized cervical andlumbar spine, compatible with diffuse osseous metastases. The alignment is normal. Multiple foci of STIR signal hyperintensity and enhancement are present involving the posterior vertebral bodies of T3,T4, T5, T10, T11, and also the left anterior aspect of T12. STIR signal hyperintensity and enhancement is also noted within the posteriorelements of T3 involving the spinous process, and the left lamina and articular pillar extending into the pedicle, the posterior elements of [id number] the spinous process, left pedicle and the right articular pillar, the spinous process of T8, the left transverse process of T10, the [id number] process and right transverse process/pedicle and the right transverse process of T12. Subtle superior endplate deformity of T5 may represent acute pathologic compression fracture STIR signal hyperintensity and enhancement within the T5 vertebral body associated with metastaticdisease limit the ability to detect an acute pathologic compression fracture.The spinal cord appears normal. The anterior and posterior longitudinal ligaments as well as the posterior ligamentous complex appear intact. There is mild degenerative disc disease. No central canal stenosis isseen. There is mild facet joint osteoarthritis. Neural foraminal stenosis isseen at multiple levels. Enhancing lesions of multiple bilateral ribs posteriorly is present. Increased STIR signal intensity and enhancement within the left paraspinal musculature of the upper thoracic spine, possibly local spread of disease. Lumbar spine: Heterogenous bone marrow signal throughout the imaged lumbar spine andthe bones of the pelvis, compatible with diffuse osseous metastases. The alignment is normal. Vertebral bodies are normal in height without evidence of compression fractures. Scattered T1 signal hypointensitieswith associated enhancement representing metastatic lesions are visiblewithin the L1, L3, and L5 vertebral bodies, in addition to the visible S1-3 segments of the sacral body. The conus medullaris terminates at thelevel of L1 and the distal spinal cord signal intensity is normal. Theanterior and posterior longitudinal ligaments as well as the posteriorligamentous complex appear intact. There is moderate to severe disc height loss at multiple levels. Various degrees of mild to moderate spinal canal stenosis related to diffuse posterior disc bulges and posterior vertebral body osteophyte complex formation. There are varying degrees of moderate to severe facet osteoarthritis. Various degrees of moderate to severe neural foraminal stenosis are present. A large retroperitoneal mass is again noted,better assessed on the prior CT of the chest, abdomen, and pelvis from03/14/2025. IMPRESSION: 1.Heterogenous bone marrow signal in the heterogenous enhancement throughout the imaged axial and appendicular skeleton, compatible with diffuse osseous metastases. 2.Pathologic fractures at the left lateral mass of C5 and the [id number] body with up to 50% of vertebral body height loss and no significant retropulsion. 3.Enhancement along the dorsal spinal canal extending from the foramen magnum to C3 may represent reactive changes related to the C1 pathologic fracture versus epidural metastatic disease. 4.Large retroperitoneal mass, compatible with patient's known carcinoma. Please refer to the prior CT of the chest, abdomen, and pelvis from 03/14/2025 for the nonosseous findings. > Dictated by Lon Dubose D.O. - Diagnostic Credit Collector. ICherelle MD have personally reviewed and interpretedthis examination/study. > Interpreting Provider: Cherelle Weiner MD on 03/15/2025 6:00 PM Ventura Lopez MD MR ORDERABLES Final Result * BLOOD TYPE VERIFICATION (03/14/2025 1:55 AM CDT) ABO Rh O POS 03/14/2025 2:4 2 AM CDT [facility] Blood Bank BLOOD SPECIMEN / Unknown Venipuncture / Unknown 03/14/2025 1:55 AM CDT 03/14/2025 2:00 AM CDT Ventura Lopez MD LAB - BLOOD BANK ORDERABLES Paulina l Result [facility] [address] [place] [address], [facility] [phone] * CT Chest Pe W Abd Pelvis W Cont (03/14/2025 1:49 AM CDT) Anatomical Region Laterality Modality Chest, Abdomen, Pelvis Computed Tomography 03/14/2025 2:12 AM CDT Impressions 03/14/2025 10:28 AM CDT Impression: 1.A 6.7 x 6.0 cm exophytic cystic mass with rim calcification in the superior pole of the right kidney likely representing the 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 The mass appears to extend from the right renal hilum and encases the right renal artery and abuts the IVC and right adrenal gland. 2.Findings consistent with known metastatic disease including a 3.7 cm left adrenal gland mass, enlarged retroperitoneal lymph nodes including a 1.9 cm necrotic lymph node, multiple bilateral pulmonary nodules, enlarged mediastinal lymph nodes, and multiple osteolytic lesions noted throughout the pelvis, right 11th rib, left scapula, and thoracolumbar spine as described above. Suggestion of a lytic lesion of anterior aspect of the left iliac wing. 3.Pathologic fracture of the T5 vertebral body with approximately 30% height loss and T10 vertebral body without significant height loss. 4.No evidence of pulmonary embolism. > Dictated by Kaleb Centeno DO (resident physician in radiology). Enzo Cochran MD have personally reviewed and interpreted this examination/study. > Interpreting Provider: Enzo Mclaughlin MD on 03/14/2025 10:28 AM Narrative 03/14/2025 10:28 AM CDT PROCEDURE: CT CHEST PE W ABD PELVIS W CONT, DATE/TIME OF EXAM: 03/14/2025 1:49 AM, LOCATION [facility] INDICATION: R55: Syncope with normal neurologic examination ADDITIONAL CLINICAL INFORMATION: Ordering Provider Reason For Exam: PE rule out in the setting of syncope COMPARISON: None. TECHNIQUE: CT of the chest was performed following the uneventful administration of 75 mL of Isovue 370 intravenous contrast according to a pulmonary embolism protocol. CT of the abdomen and pelvis was also performed during the portal venous phase according to standard protocol. Multiplanar reconstructions were created. Findings: Chest: Study Quality This examination for the diagnosis of pulmonary embolism is adequate. Pulmonary Arteries: No evidence of acute pulmonary embolism. Thoracic Vasculature: No vascular abnormality is present. Lower Neck and Axillae: Normal. 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 A 4 mm nodule is seen in the left upper lobe (image 40, series 9). There is a 12 x 8 mm nodule (Series 9, Image 61) in the left upper lobe adjacent to bronchovascular structures. Few other nodules are seen throughout the lungs. Calcified granuloma in the right middle lobe. No pleural fluid or pneumothorax is present. Heart and Pericardium: Postprocedural changes of a TAVR. The cardiac chambers are normal in size. No pericardial fluid or thickening is present. Mediastinum and Xiomy: Borderline enlarged mediastinal lymph nodes measuring up to 1 cm in short axis (for reference image 145 series 5). Secretions noted in the trachea. Other findings: None. Abdomen/pelvis: Liver: Normal. Gallbladder and Bile Ducts: Status post cholecystectomy. Mild intrahepatic bile duct dilatation likely secondary to cholecystectomy. The common bile duct is within normal limits. Spleen: Normal. Pancreas: The pancreas is mildly atrophic. Adrenals: This heterogeneous left adrenal gland mass measuring approximately 3.7 x 2.8 cm (image 38 series 8). Kidneys: There is a 6.7 x 6.0 cm exophytic cystic mass with rim calcifications within the superior pole of the right kidney which abuts the right adrenal gland. There is right para-aortic soft tissue density extending from the right renal hilum which appears to encase the right renal artery and abuts the posterior wall of the IVC (image 47, series 8). This mass appears to be in continuation with the posterior component of the renal mass. Gastrointestinal: The stomach and visualized loops of large and small bowel are unremarkable. Appendix not visualized. Mesentery/Peritoneum/Retroperitoneum: There is an oval-shaped cystic lesion measuring approximately 1.9 cm in diameter immediately posterior to the IVC which may represent a necrotic lymph node (image 56 series 8). Other enlarged retroperitoneal lymph nodes measuring up to 1.1 cm in short axis. Bladder: Normal. Reproductive Organs: The prostate is partially calcified. Abdominal Vasculature: Soft tissue density extending from right renal hilum and encasing the right renal artery and abutting the posterior wall of the IVC. Atherosclerotic calcification of the aorta and its branch vessels. Bones: Multiple lytic lesions are noted throughout the pelvis and thoracolumbar spine with pathologic compression fracture of the T5 vertebral body with approximately 30% height loss (image 188 series 11) and T10 vertebral body without significant height loss (image 190 series 11). Osteolytic lesion of the right 11th rib (image 347 series 5). Osteolytic lesion of the left inferior scapular body (image 167 series 5). A lytic lesion of anterior aspect of the left iliac wing is also seen (image 99, series 8). Questionable lytic lesions are present in the lumbar vertebra. Soft tissues: Normal. Procedure Note Chanel Mclaughlin MD - 03/14/2025 PROCEDURE: CT CHEST PE W ABD PELVIS W CONT, DATE/TIME OF EXAM:03/14/2025 1:49 AM, LOCATION [facility] INDICATION: R55: Syncope with normal neurologic examination ADDITIONAL CLINICAL INFORMATION: Ordering Provider Reason For Exam: PE rule out in the setting ofsyncope COMPARISON: None. TECHNIQUE: CT of the chest was performed following the uneventful administration of 75 mL of Isovue 370 intravenous contrast according toa pulmonary embolism protocol. CT of the abdomen and pelvis was also performed during the portal venous phase according to standard protocol. Multiplanar reconstructions were created. Findings: Chest: Study Quality This examination for the diagnosis of pulmonary embolism is adequate. Pulmonary Arteries: No evidence of acute pulmonary embolism. Thoracic Vasculature: No vascular abnormality is present. Lower Neck and Axillae: Normal. 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 A4 mm nodule is seen in the left upper lobe (image 40, series 9). There mikki 12 x 8 mm nodule (Series 9, Image 61) in the left upper lobe adjacent to bronchovascular structures. Few other nodules are seen throughout the lungs. Calcified granuloma in the right middle lobe. No pleural fluid or pneumothorax is present. Heart and Pericardium: Postprocedural changes of a TAVR. The cardiac chambers are normal insize. No pericardial fluid or thickening is present. Mediastinum and Xiomy: Borderline enlarged mediastinal lymph nodes measuring up to 1 cm inshort axis (for reference image 145 series 5). Secretions noted in thetrachea. Other findings: None. Abdomen/pelvis: Liver: Normal. Gallbladder and Bile Ducts: Status post cholecystectomy. Mild intrahepatic bile duct dilatationlikely secondary to cholecystectomy. The common bile duct is within normallimits. Spleen: Normal. Pancreas: The pancreas is mildly atrophic. Adrenals: This heterogeneous left adrenal gland mass measuring approximately 3.7 x 2.8 cm (image 38 series 8). Kidneys: There is a 6.7 x 6.0 cm exophytic cystic mass with rim calcifications within the superior pole of the right kidney which abuts the rightadrenal gland. There is right para-aortic soft tissue density extending from the right renal hilum which appears to encase the right renal artery andabuts the posterior wall of the IVC (image 47, series 8). This mass appears yusef in continuation with the posterior component of the renal mass. Gastrointestinal: The stomach and visualized loops of large and small bowel areunremarkable. Appendix not visualized. Mesentery/Peritoneum/Retroperitoneum: There is an oval-shaped cystic lesion measuring approximately 1.9 cm in diameter immediately posterior to the IVC which may represent a necrotic lymph node (image 56 series 8). Other enlarged retroperitoneal lymphnodes measuring up to 1.1 cm in short axis. Bladder: Normal. Reproductive Organs: The prostate is partially calcified. Abdominal Vasculature: Soft tissue density extending from right renal hilum and encasing theright renal artery and abutting the posterior wall of the IVC. Atherosclerotic calcification of the aorta and its branch vessels. Bones: Multiple lytic lesions are noted throughout the pelvis and thoracolumbar spine with pathologic compression fracture of the T5 vertebral body with approximately 30% height loss (image 188 series 11) and T10 vertebralbody without significant height loss (image 190 series 11). Osteolytic lesionof the right 11th rib (image 347 series 5). Osteolytic lesion of the left inferior scapular body (image 167 series 5). A lytic lesion of anterior aspect of the left iliac wing is also seen (image 99, series 8). Questionable lytic lesions are present in the lumbar vertebra. Soft tissues: Normal. Impression: 1.A 6.7 x 6.0 cm exophytic cystic mass with rim calcification in the superior pole of the right kidney likely representing the knownmetastatic small cell carcinoma of the right kidney. The mass appears to extendfrom the right renal hilum and encases the right renal artery and abuts theIVC and right adrenal gland. 2.Findings consistent with known metastatic disease including a 3.7 cmleft adrenal gland mass, enlarged retroperitoneal lymph nodes including a 1.9cm necrotic lymph node, multiple bilateral pulmonary nodules, enlarged mediastinal lymph nodes, and multiple osteolytic lesions notedthroughout the pelvis, right 11th rib, left scapula, and thoracolumbar spine as described above. Suggestion of a lytic lesion of anterior aspect of the left iliac wing. 3.Pathologic fracture of the T5 vertebral body with approximately 30% height loss and T10 vertebral body without significant height loss. 4.No evidence of pulmonary embolism. > Dictated by Kaleb Centeno DO (resident physician in radiology). I, Enzo Mclaughlin MD have personally reviewed and interpreted this examination/study. > Interpreting Provider: Enzo Mclaughlin MD on 03/14/2025 10:28 AM Ventura Lopez MD CT ORDERABLES Final Result * CT Lumbar Spine Wo Contrast (03/14/2025 1:49 AM CDT) Anatomical Region Laterality Modality Spine Computed Tomogra phy 03/14/2025 2:32 AM CDT Impressions 03/14/2025 9:09 PM CDT IMPRESSION: HEAD: 1.No acute intracranial hemorrhage, mass effect or midline shift. Slight linear extra-axial hyperattenuation along the left frontoparietal bone most likely secondary to prominent vasculature, versus dural thickening. 2.Redemonstrated lytic lesions in the left parietal bone the vertex consistent with patient's known metastatic disease. 3.Previously described chronic lacunar infarcts as detailed above. SPINE: Cervical: 1.Sequela of metastatic disease involving throughout the spine as detailed above. Please note that MRI with and without contrast is more sensitive for detailed evaluation of the osseous disease and for any epidural extent/soft tissue of the disease. Lucent lesions noted involving the left lateral mass of C1, left lateral articular process of C6 as detailed above with associated pathological fractures. There is significant soft tissue component along the left lateral mass of C1 with soft tissue thickening involving the adjacent prevertebral and paravertebral musculature. MRI is recommended for evaluation of epidural extension of the disease. However no associated significant central canal stenosis noted. Thoracic spine: 1.Pathologic compression fracture of T5 vertebral body with approximately 50% vertebral height loss and without retropulsion.. 2.Inferior endplate irregularity of the T10 vertebral body with adjacent area of lucency also concerning for pathologic fracture without significant height loss or retropulsion. Lumbar: No evidence of acute fractures. Scattered lytic lesions noted however these could be sequela of focal osteopenia and metastatic lesions, MRI lumbar spine with and without contrast is more accurate for detailed evaluation of the metastatic disease. Critical findings were discussed in detail with the patient's care provider, Dr. Nicko Barnes by Dr. Huffman via telephone at 3:00 AM on 03/14/2025 with readback comprehension and verification. This report was dictated by Carlos Huffman M.D. (/IR Resident). I, Teresa Hernandez MD have personally reviewed and interpreted this examination/study. > Interpreting Provider: Teresa Hernandez MD on 03/14/2025 9:09 PM Narrative 03/14/2025 9:09 PM CDT PROCEDURE: CT HEAD WO CONTRAST, CT LUMBAR SPINE WO CONTRAST, CT THORACIC SPINE WO CONTRAST, CT CERVICAL SPINE WO CONTRAST, DATE/TIME OF EXAM: 03/14/2025 1:49 AM, LOCATION [facility] INDICATION: R55: Syncope with normal neurologic examination ADDITIONAL CLINICAL INFORMATION: Ordering Provider Reason For Exam: Fall, rule intracranial hemorrhage (accession [id number]), Fracture rule out after fall, syncope, known renal cancer (accession [id number]), Fracture rule out after fall, syncope, known renal cancer (accession [id number]), Fracture rule out, Neck pain after fall (accession [id number]) Technologist Note: Additional: Known metastatic destructive lesion in left lateral mass of C1 extending to the left transverse process, lytic metastatic lesion in the superior posterior left frontal/anterior left parietal calvarium at the vertex with adjacent dural enhancement and possible involvement, the occipital calvarium, and lacunar infarcts in the bilateral basal ganglia/capsule/insular cortex and in the jillian EXAMINATION: 1. Computed tomography (CT) of the head without contrast 2. CT of the cervical spine without contrast 3. CT of the thoracic spine without contrast 4. CT of the lumbar spine without contrast TECHNIQUE: CT of the head and cervical spine were performed without contrast according to standard protocol. Reformatted axial, sagittal, and coronal images of the thoracic and lumbar spine were obtained by the technologist from a concurrently performed body CT and sent to the workstation for review. COMPARISON: Report from MRI brain with and without contrast 02/19/2025 FINDINGS: HEAD: There is a curvilinear area of hyperattenuation along the left cerebral convexity to the measuring 2 mm in thickness which may represent dural thickening versus prominent vasculature, attention on follow-up recommended. There is no associated mass effect or midline shift. There is mild cerebral volume loss with associated ex vacuo ventricular dilatation. The basal cisterns are patent. No mass effect or midline shift is seen. Chronic lacunar infarcts are seen in bilateral basal ganglia. Hypoattenuation in the jillian likely corresponds to lacunar infarct previously described on MRI 02/19/2025. No acute territorial infarct is identified. Periventricular white matter hypoattenuation is nonspecific but can be seen in setting of small vessel disease. Atherosclerotic calcifications are present in the carotid siphons and bilateral V4 segments of the vertebral arteries. The visualized portions of the orbits, paranasal sinuses, and mastoids appear normal. CERVICAL SPINE: There is atherosclerotic calcification of the carotid bifurcations. Trace anterolisthesis of C7 on T1, most likely chronic secondary to degenerative facet arthropathy.. The prevertebral soft tissue is normal in thickness. Lucent lesion with the height loss along the left lateral mass of C1 extending into the left transverse process consistent with known metastatic disease and associated pathological fracture. There is mild widening of the left atlantooccipital joint. Pathologic or fracture is noted extending up to the anterior arch of C1 and left transverse foramina. There is adjacent soft tissue swelling involving the prevertebral and paravertebral musculature could be secondary to soft tissue component to the metastatic disease. (Image 92, 78, series 4). Please note that MRI is more sensitive for evaluation of epidural extent of the disease. Lytic lesion noted involving the left C6 articular process and also possibly involving the left occipital condyle. Possible nondisplaced pathological fracture also in noted involving the left articular process and transverse process of C6 (image 199, 196, series 3). Advanced disc degenerative changes with the disc space narrowing, anterior and posterior disc osteophyte complexes. Multilevel moderate to severe central canal stenosis most prominent at the level of C4-C5 and C3-C4 secondary to posterior disc bulges and ligamentum flavum calcifications.. Moderate to severe right-sided facet arthropathy at the level of C7-T1. Mild to moderate facet arthropathy at other levels. There are varying degrees of moderate to severe multilevel uncovertebral joint osteoarthritis most prominent at the level of right C3-C4, bilateral C4-C5 with the same degree of neural foraminal stenosis at these levels. Enlarged lymph node in the right supraclavicular region most likely metastatic lymph node. THORACIC SPINE: There is atherosclerotic calcification of the thoracic aorta and its branch vessels. Scattered lucent lesions most prominent at the level of T5, T4, T10 possibly T12 vertebral bodies and also involving the left transverse process of T3 vertebral body. There is pathologic compression fracture of the T5 vertebral body on the left with approximately 50% vertebral height loss and without retropulsion.. Inferior endplate irregularity of the T10 vertebral body in area of lucency also likely represents pathological inferior endplate compression fracture without significant height loss. The bones are mildly osteopenic. There is up to severe multilevel degenerative disc disease. Multilevel endplate irregularities and anterior disc osteophyte complexes. Mild posterior disc bulges however no significant central canal stenosis noted. There are varying degrees of up to mild to moderate facet osteoarthritis with the same degree of neural foraminal stenosis at these levels. LUMBAR SPINE: Partially visualized right renal mass likely corresponds to patient's known malignancy. Nodular appearance of the left adrenal gland also could be secondary to metastatic disease. Scattered lucent lesions noted however presence of degenerative changes limits evaluation for accurate extent of the osseous lesions. MRI of the lumbar spine with and without contrast could be performed for detailed evaluation. Severe disc degenerative changes most prominent at the level of L3-L4 with endplate sclerosis, severe disc space narrowing and vacuum degeneration.. Multilevel moderate to severe central canal stenosis most prominent at the level of L3-L4 secondary to disc osteophyte complex and and ligamentum flavum thickening. . There are varying degrees of up to severe facet osteoarthritis with the same degree of neural foraminal stenosis at these levels. Brain injury guidelines: Skull fracture: No Subdural hematoma: Suspected. Epidural hematoma: No epidural hematoma. Intraparenchymal hemorrhage: No intraparenchymal hemorrhage. Subarachnoid hemorrhage: No subarachnoid hemorrhage. Intraventricular hemorrhage: No. Midline shift: No. Procedure Note Teresa Hernandez MD - 03/14/2025 PROCEDURE: CT HEAD WO CONTRAST, CT LUMBAR SPINE WO CONTRAST, CTTHORACIC SPINE WO CONTRAST, CT CERVICAL SPINE WO CONTRAST, DATE/TIME OF EXAM: 03/14/2025 1:49 AM, LOCATION [facility] INDICATION: R55: Syncope with normal neurologic examination ADDITIONAL CLINICAL INFORMATION: Ordering Provider Reason For Exam: Fall, rule intracranial hemorrhage (accession [id number]), Fracture rule out after fall, syncope, knownrenal cancer (accession [id number]), Fracture rule out after fall, syncope,known renal cancer (accession [id number]), Fracture rule out, Neck pain afterfall (accession [id number]) Technologist Note: Additional: Known metastatic destructive lesion in left lateral mass ofC1 extending to the left transverse process, lytic metastatic lesion in the superior posterior left frontal/anterior left parietal calvarium at the vertex with adjacent dural enhancement and possible involvement, the occipital calvarium, and lacunar infarcts in the bilateral basal ganglia/capsule/insular cortex and in the jillian EXAMINATION: 1. Computed tomography (CT) of the head without contrast 2. CT of the cervical spine without contrast 3. CT of the thoracic spine without contrast 4. CT of the lumbar spine without contrast TECHNIQUE: CT of the head and cervical spine were performed without contrast according to standard protocol. Reformatted axial, sagittal,and coronal images of the thoracic and lumbar spine were obtained by the technologist from a concurrently performed body CT and sent to the workstation for review. COMPARISON: Report from MRI brain with and without contrast 02/19/2025 FINDINGS: HEAD: There is a curvilinear area of hyperattenuation along the left cerebral convexity to the measuring 2 mm in thickness which may represent dural thickening versus prominent vasculature, attention on follow-up recommended. There is no associated mass effect or midline shift. Thereis mild cerebral volume loss with associated ex vacuo ventriculardilatation. The basal cisterns are patent. No mass effect or midline shift is seen. Chronic lacunar infarcts are seen in bilateral basal ganglia. Hypoattenuation in the jillian likely corresponds to lacunar infarct previously described on MRI 02/19/2025. No acute territorial infarct is identified. Periventricular white matter hypoattenuation is nonspecificbut can be seen in setting of small vessel disease. Atherosclerotic calcifications are present in the carotid siphons and bilateral [id number] of the vertebral arteries. The visualized portions of the orbits, paranasal sinuses, and mastoids appear normal. CERVICAL SPINE: There is atherosclerotic calcification of the carotid bifurcations. Trace anterolisthesis of C7 on T1, most likely chronic secondary to degenerative facet arthropathy.. The prevertebral soft tissue is normalin thickness. Lucent lesion with the height loss along the left lateral mass of C1 extending into the left transverse process consistent with knownmetastatic disease and associated pathological fracture. There is mild widening ofthe left atlantooccipital joint. Pathologic or fracture is noted extendingup to the anterior arch of C1 and left transverse foramina. There isadjacent soft tissue swelling involving the prevertebral and paravertebral musculature could be secondary to soft tissue component to themetastatic disease. (Image 92, 78, series 4). Please note that MRI is moresensitive for evaluation of epidural extent of the disease. Lytic lesion noted involving the left C6 articular process and also possibly involving the left occipital condyle. Possible nondisplaced pathological fracture also in noted involving the left articular process and transverse process of C6 (image 199, 196, series 3). Advanced disc degenerative changes with the disc space narrowing,anterior and posterior disc osteophyte complexes. Multilevel moderate to severe central canal stenosis most prominent at the level of C4-C5 and C3-C4 secondary to posterior disc bulges and ligamentum flavumcalcifications.. Moderate to severe right-sided facet arthropathy at the level of C7-T1. Mild to moderate facet arthropathy at other levels. There are varying degrees of moderate to severe multilevel uncovertebral jointosteoarthritis most prominent at the level of right C3-C4, bilateral C4-C5 with thesame degree of neural foraminal stenosis at these levels. Enlarged lymph node in the right supraclavicular region most likely metastatic lymph node. THORACIC SPINE: There is atherosclerotic calcification of the thoracic aorta and itsbranch vessels. Scattered lucent lesions most prominent at the level of T5, T4, T10 possibly T12 vertebral bodies and also involving the left transverse process of T3 vertebral body. There is pathologic compression fracture of the T5 vertebral body on the left with approximately 50% vertebral height loss and without retropulsion.. Inferior endplate irregularity of the T10 vertebral bodyin area of lucency also likely represents pathological inferior endplate compression fracture without significant height loss. The bones aremildly osteopenic. There is up to severe multilevel degenerative disc disease. Multilevel endplate irregularities and anterior disc osteophytecomplexes. Mild posterior disc bulges however no significant central canal stenosis noted. There are varying degrees of up to mild to moderate facet osteoarthritis with the same degree of neural foraminal stenosis atthese levels. LUMBAR SPINE: Partially visualized right renal mass likely corresponds to patient'sknown malignancy. Nodular appearance of the left adrenal gland also could be secondary to metastatic disease. Scattered lucent lesions noted however presence of degenerative changes limits evaluation for accurate extent of the osseous lesions. MRI of the lumbar spine with and without contrast could be performed for detailed evaluation. Severe disc degenerative changes most prominent at the level of L3-L4with endplate sclerosis, severe disc space narrowing and vacuumdegeneration.. Multilevel moderate to severe central canal stenosis most prominent atthe level of L3-L4 secondary to disc osteophyte complex and and ligamentum flavum thickening. . There are varying degrees of up to severe facet osteoarthritis with the same degree of neural foraminal stenosis atthese levels. Brain injury guidelines: Skull fracture: No Subdural hematoma: Suspected. Epidural hematoma: No epidural hematoma. Intraparenchymal hemorrhage: No intraparenchymal hemorrhage. Subarachnoid hemorrhage: No subarachnoid hemorrhage. Intraventricular hemorrhage: No. Midline shift: No. IMPRESSION: HEAD: 1.No acute intracranial hemorrhage, mass effect or midline shift. Slight linear extra-axial hyperattenuation along the left frontoparietal bonemost likely secondary to prominent vasculature, versus dural thickening. 2.Redemonstrated lytic lesions in the left parietal bone the vertex consistent with patient's known metastatic disease. 3.Previously described chronic lacunar infarcts as detailed above. SPINE: Cervical: 1.Sequela of metastatic disease involving throughout the spine asdetailed above. Please note that MRI with and without contrast is more sensitivefor detailed evaluation of the osseous disease and for any epiduralextent/soft tissue of the disease. Lucent lesions noted involving the left lateral mass of C1, left lateral articular process of C6 as detailed above with associated pathological fractures. There is significant soft tissue component along the left lateral mass of C1 with soft tissue thickening involving the adjacent prevertebral and paravertebral musculature. MRI is recommended for evaluation of epidural extension of the disease. However no associated significant central canal stenosis noted. Thoracic spine: 1.Pathologic compression fracture of T5 vertebral body withapproximately 50% vertebral height loss and without retropulsion.. 2.Inferior endplate irregularity of the T10 vertebral body with adjacent area of lucency also concerning for pathologic fracture withoutsignificant height loss or retropulsion. Lumbar: No evidence of acute fractures. Scattered lytic lesions noted howeverthese could be sequela of focal osteopenia and metastatic lesions, MRI lumbar spine with and without contrast is more accurate for detailed evaluationof the metastatic disease. Critical findings were discussed in detail with the patient's care provider, Dr. Nicko Barnes by Dr. Huffman via telephone at 3:00 AM on 03/14/2025 with readback comprehension and verification. This report was dictated by Carlos Huffman M.D. (DR/IR Resident). I, Teresa Hernandez MD have personally reviewed and interpreted this examination/study. > Interpreting Provider: Teresa Hernandez MD on 03/14/2025 9:09 PM us Ventura Lopez MD CT ORDERABLES Final Result * CT Thoracic Spine Wo Contrast (03/14/2025 1:49 AM CDT) Anatomical Region Laterality Modality Spine Computed Tomogra phy 03/14/2025 2:32 AM CDT Impressions 03/14/2025 9:09 PM CDT IMPRESSION: HEAD: 1.No acute intracranial hemorrhage, mass effect or midline shift. Slight linear extra-axial hyperattenuation along the left frontoparietal bone most likely secondary to prominent vasculature, versus dural thickening. 2.Redemonstrated lytic lesions in the left parietal bone the vertex consistent with patient's known metastatic disease. 3.Previously described chronic lacunar infarcts as detailed above. SPINE: Cervical: 1.Sequela of metastatic disease involving throughout the spine as detailed above. Please note that MRI with and without contrast is more sensitive for detailed evaluation of the osseous disease and for any epidural extent/soft tissue of the disease. Lucent lesions noted involving the left lateral mass of C1, left lateral articular process of C6 as detailed above with associated pathological fractures. There is significant soft tissue component along the left lateral mass of C1 with soft tissue thickening involving the adjacent prevertebral and paravertebral musculature. MRI is recommended for evaluation of epidural extension of the disease. However no associated significant central canal stenosis noted. Thoracic spine: 1.Pathologic compression fracture of T5 vertebral body with approximately 50% vertebral height loss and without retropulsion.. 2.Inferior endplate irregularity of the T10 vertebral body with adjacent area of lucency also concerning for pathologic fracture without significant height loss or retropulsion. Lumbar: No evidence of acute fractures. Scattered lytic lesions noted however these could be sequela of focal osteopenia and metastatic lesions, MRI lumbar spine with and without contrast is more accurate for detailed evaluation of the metastatic disease. Critical findings were discussed in detail with the patient's care provider, Dr. Nicko Barnes by Dr. Huffman via telephone at 3:00 AM on 03/14/2025 with readback comprehension and verification. This report was dictated by Carlos Huffman M.D. (/IR Resident). I, Teresa Hernandez MD have personally reviewed and interpreted this examination/study. > Interpreting Provider: Teresa Hernandez MD on 03/14/2025 9:09 PM Narrative 03/14/2025 9:09 PM CDT PROCEDURE: CT HEAD WO CONTRAST, CT LUMBAR SPINE WO CONTRAST, CT THORACIC SPINE WO CONTRAST, CT CERVICAL SPINE WO CONTRAST, DATE/TIME OF EXAM: 03/14/2025 1:49 AM, LOCATION [facility] INDICATION: R55: Syncope with normal neurologic examination ADDITIONAL CLINICAL INFORMATION: Ordering Provider Reason For Exam: Fall, rule intracranial hemorrhage (accession [id number]), Fracture rule out after fall, syncope, known renal cancer (accession [id number]), Fracture rule out after fall, syncope, known renal cancer (accession [id number]), Fracture rule out, Neck pain after fall (accession [id number]) Technologist Note: Additional: Known metastatic destructive lesion in left lateral mass of C1 extending to the left transverse process, lytic metastatic lesion in the superior posterior left frontal/anterior left parietal calvarium at the vertex with adjacent dural enhancement and possible involvement, the occipital calvarium, and lacunar infarcts in the bilateral basal ganglia/capsule/insular cortex and in the jillian EXAMINATION: 1. Computed tomography (CT) of the head without contrast 2. CT of the cervical spine without contrast 3. CT of the thoracic spine without contrast 4. CT of the lumbar spine without contrast TECHNIQUE: CT of the head and cervical spine were performed without contrast according to standard protocol. Reformatted axial, sagittal, and coronal images of the thoracic and lumbar spine were obtained by the technologist from a concurrently performed body CT and sent to the workstation for review. COMPARISON: Report from MRI brain with and without contrast 02/19/2025 FINDINGS: HEAD: There is a curvilinear area of hyperattenuation along the left cerebral convexity to the measuring 2 mm in thickness which may represent dural thickening versus prominent vasculature, attention on follow-up recommended. There is no associated mass effect or midline shift. There is mild cerebral volume loss with associated ex vacuo ventricular dilatation. The basal cisterns are patent. No mass effect or midline shift is seen. Chronic lacunar infarcts are seen in bilateral basal ganglia. Hypoattenuation in the jillian likely corresponds to lacunar infarct previously described on MRI 02/19/2025. No acute territorial infarct is identified. Periventricular white matter hypoattenuation is nonspecific but can be seen in setting of small vessel disease. Atherosclerotic calcifications are present in the carotid siphons and bilateral V4 segments of the vertebral arteries. The visualized portions of the orbits, paranasal sinuses, and mastoids appear normal. CERVICAL SPINE: There is atherosclerotic calcification of the carotid bifurcations. Trace anterolisthesis of C7 on T1, most likely chronic secondary to degenerative facet arthropathy.. The prevertebral soft tissue is normal in thickness. Lucent lesion with the height loss along the left lateral mass of C1 extending into the left transverse process consistent with known metastatic disease and associated pathological fracture. There is mild widening of the left atlantooccipital joint. Pathologic or fracture is noted extending up to the anterior arch of C1 and left transverse foramina. There is adjacent soft tissue swelling involving the prevertebral and paravertebral musculature could be secondary to soft tissue component to the metastatic disease. (Image 92, 78, series 4). Please note that MRI is more sensitive for evaluation of epidural extent of the disease. Lytic lesion noted involving the left C6 articular process and also possibly involving the left occipital condyle. Possible nondisplaced pathological fracture also in noted involving the left articular process and transverse process of C6 (image 199, 196, series 3). Advanced disc degenerative changes with the disc space narrowing, anterior and posterior disc osteophyte complexes. Multilevel moderate to severe central canal stenosis most prominent at the level of C4-C5 and C3-C4 secondary to posterior disc bulges and ligamentum flavum calcifications.. Moderate to severe right-sided facet arthropathy at the level of C7-T1. Mild to moderate facet arthropathy at other levels. There are varying degrees of moderate to severe multilevel uncovertebral joint osteoarthritis most prominent at the level of right C3-C4, bilateral C4-C5 with the same degree of neural foraminal stenosis at these levels. Enlarged lymph node in the right supraclavicular region most likely metastatic lymph node. THORACIC SPINE: There is atherosclerotic calcification of the thoracic aorta and its branch vessels. Scattered lucent lesions most prominent at the level of T5, T4, T10 possibly T12 vertebral bodies and also involving the left transverse process of T3 vertebral body. There is pathologic compression fracture of the T5 vertebral body on the left with approximately 50% vertebral height loss and without retropulsion.. Inferior endplate irregularity of the T10 vertebral body in area of lucency also likely represents pathological inferior endplate compression fracture without significant height loss. The bones are mildly osteopenic. There is up to severe multilevel degenerative disc disease. Multilevel endplate irregularities and anterior disc osteophyte complexes. Mild posterior disc bulges however no significant central canal stenosis noted. There are varying degrees of up to mild to moderate facet osteoarthritis with the same degree of neural foraminal stenosis at these levels. LUMBAR SPINE: Partially visualized right renal mass likely corresponds to patient's known malignancy. Nodular appearance of the left adrenal gland also could be secondary to metastatic disease. Scattered lucent lesions noted however presence of degenerative changes limits evaluation for accurate extent of the osseous lesions. MRI of the lumbar spine with and without contrast could be performed for detailed evaluation. Severe disc degenerative changes most prominent at the level of L3-L4 with endplate sclerosis, severe disc space narrowing and vacuum degeneration.. Multilevel moderate to severe central canal stenosis most prominent at the level of L3-L4 secondary to disc osteophyte complex and and ligamentum flavum thickening. . There are varying degrees of up to severe facet osteoarthritis with the same degree of neural foraminal stenosis at these levels. Brain injury guidelines: Skull fracture: No Subdural hematoma: Suspected. Epidural hematoma: No epidural hematoma. Intraparenchymal hemorrhage: No intraparenchymal hemorrhage. Subarachnoid hemorrhage: No subarachnoid hemorrhage. Intraventricular hemorrhage: No. Midline shift: No. Procedure Note Teresa Hernandez MD - 03/14/2025 PROCEDURE: CT HEAD WO CONTRAST, CT LUMBAR SPINE WO CONTRAST, CTTHORACIC SPINE WO CONTRAST, CT CERVICAL SPINE WO CONTRAST, DATE/TIME OF EXAM: 03/14/2025 1:49 AM, LOCATION [facility] INDICATION: R55: Syncope with normal neurologic examination ADDITIONAL CLINICAL INFORMATION: Ordering Provider Reason For Exam: Fall, rule intracranial hemorrhage (accession [id number]), Fracture rule out after fall, syncope, knownrenal cancer (accession [id number]), Fracture rule out after fall, syncope,known renal cancer (accession [id number]), Fracture rule out, Neck pain afterfall (accession [id number]) Technologist Note: Additional: Known metastatic destructive lesion in left lateral mass ofC1 extending to the left transverse process, lytic metastatic lesion in the superior posterior left frontal/anterior left parietal calvarium at the vertex with adjacent dural enhancement and possible involvement, the occipital calvarium, and lacunar infarcts in the bilateral basal ganglia/capsule/insular cortex and in the jillian EXAMINATION: 1. Computed tomography (CT) of the head without contrast 2. CT of the cervical spine without contrast 3. CT of the thoracic spine without contrast 4. CT of the lumbar spine without contrast TECHNIQUE: CT of the head and cervical spine were performed without contrast according to standard protocol. Reformatted axial, sagittal,and coronal images of the thoracic and lumbar spine were obtained by the technologist from a concurrently performed body CT and sent to the workstation for review. COMPARISON: Report from MRI brain with and without contrast 02/19/2025 FINDINGS: HEAD: There is a curvilinear area of hyperattenuation along the left cerebral convexity to the measuring 2 mm in thickness which may represent dural thickening versus prominent vasculature, attention on follow-up recommended. There is no associated mass effect or midline shift. Thereis mild cerebral volume loss with associated ex vacuo ventriculardilatation. The basal cisterns are patent. No mass effect or midline shift is seen. Chronic lacunar infarcts are seen in bilateral basal ganglia. Hypoattenuation in the jillian likely corresponds to lacunar infarct previously described on MRI 02/19/2025. No acute territorial infarct is identified. Periventricular white matter hypoattenuation is nonspecificbut can be seen in setting of small vessel disease. Atherosclerotic calcifications are present in the carotid siphons and bilateral [id number] of the vertebral arteries. The visualized portions of the orbits, paranasal sinuses, and mastoids appear normal. CERVICAL SPINE: There is atherosclerotic calcification of the carotid bifurcations. Trace anterolisthesis of C7 on T1, most likely chronic secondary to degenerative facet arthropathy.. The prevertebral soft tissue is normalin thickness. Lucent lesion with the height loss along the left lateral mass of C1 extending into the left transverse process consistent with knownmetastatic disease and associated pathological fracture. There is mild widening ofthe left atlantooccipital joint. Pathologic or fracture is noted extendingup to the anterior arch of C1 and left transverse foramina. There isadjacent soft tissue swelling involving the prevertebral and paravertebral musculature could be secondary to soft tissue component to themetastatic disease. (Image 92, 78, series 4). Please note that MRI is moresensitive for evaluation of epidural extent of the disease. Lytic lesion noted involving the left C6 articular process and also possibly involving the left occipital condyle. Possible nondisplaced pathological fracture also in noted involving the left articular process and transverse process of C6 (image 199, 196, series 3). Advanced disc degenerative changes with the disc space narrowing,anterior and posterior disc osteophyte complexes. Multilevel moderate to severe central canal stenosis most prominent at the level of C4-C5 and C3-C4 secondary to posterior disc bulges and ligamentum flavumcalcifications.. Moderate to severe right-sided facet arthropathy at the level of C7-T1. Mild to moderate facet arthropathy at other levels. There are varying degrees of moderate to severe multilevel uncovertebral jointosteoarthritis most prominent at the level of right C3-C4, bilateral C4-C5 with thesame degree of neural foraminal stenosis at these levels. Enlarged lymph node in the right supraclavicular region most likely metastatic lymph node. THORACIC SPINE: There is atherosclerotic calcification of the thoracic aorta and itsbranch vessels. Scattered lucent lesions most prominent at the level of T5, T4, T10 possibly T12 vertebral bodies and also involving the left transverse process of T3 vertebral body. There is pathologic compression fracture of the T5 vertebral body on the left with approximately 50% vertebral height loss and without retropulsion.. Inferior endplate irregularity of the T10 vertebral bodyin area of lucency also likely represents pathological inferior endplate compression fracture without significant height loss. The bones aremildly osteopenic. There is up to severe multilevel degenerative disc disease. Multilevel endplate irregularities and anterior disc osteophytecomplexes. Mild posterior disc bulges however no significant central canal stenosis noted. There are varying degrees of up to mild to moderate facet osteoarthritis with the same degree of neural foraminal stenosis atthese levels. LUMBAR SPINE: Partially visualized right renal mass likely corresponds to patient'sknown malignancy. Nodular appearance of the left adrenal gland also could be secondary to metastatic disease. Scattered lucent lesions noted however presence of degenerative changes limits evaluation for accurate extent of the osseous lesions. MRI of the lumbar spine with and without contrast could be performed for detailed evaluation. Severe disc degenerative changes most prominent at the level of L3-L4with endplate sclerosis, severe disc space narrowing and vacuumdegeneration.. Multilevel moderate to severe central canal stenosis most prominent atthe level of L3-L4 secondary to disc osteophyte complex and and ligamentum flavum thickening. . There are varying degrees of up to severe facet osteoarthritis with the same degree of neural foraminal stenosis atthese levels. Brain injury guidelines: Skull fracture: No Subdural hematoma: Suspected. Epidural hematoma: No epidural hematoma. Intraparenchymal hemorrhage: No intraparenchymal hemorrhage. Subarachnoid hemorrhage: No subarachnoid hemorrhage. Intraventricular hemorrhage: No. Midline shift: No. IMPRESSION: HEAD: 1.No acute intracranial hemorrhage, mass effect or midline shift. Slight linear extra-axial hyperattenuation along the left frontoparietal bonemost likely secondary to prominent vasculature, versus dural thickening. 2.Redemonstrated lytic lesions in the left parietal bone the vertex consistent with patient's known metastatic disease. 3.Previously described chronic lacunar infarcts as detailed above. SPINE: Cervical: 1.Sequela of metastatic disease involving throughout the spine asdetailed above. Please note that MRI with and without contrast is more sensitivefor detailed evaluation of the osseous disease and for any epiduralextent/soft tissue of the disease. Lucent lesions noted involving the left lateral mass of C1, left lateral articular process of C6 as detailed above with associated pathological fractures. There is significant soft tissue component along the left lateral mass of C1 with soft tissue thickening involving the adjacent prevertebral and paravertebral musculature. MRI is recommended for evaluation of epidural extension of the disease. However no associated significant central canal stenosis noted. Thoracic spine: 1.Pathologic compression fracture of T5 vertebral body withapproximately 50% vertebral height loss and without retropulsion.. 2.Inferior endplate irregularity of the T10 vertebral body with adjacent area of lucency also concerning for pathologic fracture withoutsignificant height loss or retropulsion. Lumbar: No evidence of acute fractures. Scattered lytic lesions noted howeverthese could be sequela of focal osteopenia and metastatic lesions, MRI lumbar spine with and without contrast is more accurate for detailed evaluationof the metastatic disease. Critical findings were discussed in detail with the patient's care provider, Dr. Nicko Barnes by Dr. Huffman via telephone at 3:00 AM on 03/14/2025 with readback comprehension and verification. This report was dictated by Carlos Huffman M.D. (DR/IR Resident). I, Teresa Hernandez MD have personally reviewed and interpreted this examination/study. > Interpreting Provider: Teresa Hernandez MD on 03/14/2025 9:09 PM us Ventura Lopez MD CT ORDERABLES Final Result * CT CERVICAL SPINE WO CONTRAST (03/14/2025 1:49 AM CDT) Anatomical Region Laterality Modality Spine Computed Tomogra phy 03/14/2025 2:32 AM CDT Impressions 03/14/2025 9:09 PM CDT IMPRESSION: HEAD: 1.No acute intracranial hemorrhage, mass effect or midline shift. Slight linear extra-axial hyperattenuation along the left frontoparietal bone most likely secondary to prominent vasculature, versus dural thickening. 2.Redemonstrated lytic lesions in the left parietal bone the vertex consistent with patient's known metastatic disease. 3.Previously described chronic lacunar infarcts as detailed above. SPINE: Cervical: 1.Sequela of metastatic disease involving throughout the spine as detailed above. Please note that MRI with and without contrast is more sensitive for detailed evaluation of the osseous disease and for any epidural extent/soft tissue of the disease. Lucent lesions noted involving the left lateral mass of C1, left lateral articular process of C6 as detailed above with associated pathological fractures. There is significant soft tissue component along the left lateral mass of C1 with soft tissue thickening involving the adjacent prevertebral and paravertebral musculature. MRI is recommended for evaluation of epidural extension of the disease. However no associated significant central canal stenosis noted. Thoracic spine: 1.Pathologic compression fracture of T5 vertebral body with approximately 50% vertebral height loss and without retropulsion.. 2.Inferior endplate irregularity of the T10 vertebral body with adjacent area of lucency also concerning for pathologic fracture without significant height loss or retropulsion. Lumbar: No evidence of acute fractures. Scattered lytic lesions noted however these could be sequela of focal osteopenia and metastatic lesions, MRI lumbar spine with and without contrast is more accurate for detailed evaluation of the metastatic disease. Critical findings were discussed in detail with the patient's care provider, Dr. Nicko Barnes by Dr. Huffman via telephone at 3:00 AM on 03/14/2025 with readback comprehension and verification. This report was dictated by Carlos Huffman M.D. (/IR Resident). I, Teresa Hernandez MD have personally reviewed and interpreted this examination/study. > Interpreting Provider: Teresa Hernandez MD on 03/14/2025 9:09 PM Narrative 03/14/2025 9:09 PM CDT PROCEDURE: CT HEAD WO CONTRAST, CT LUMBAR SPINE WO CONTRAST, CT THORACIC SPINE WO CONTRAST, CT CERVICAL SPINE WO CONTRAST, DATE/TIME OF EXAM: 03/14/2025 1:49 AM, LOCATION [facility] INDICATION: R55: Syncope with normal neurologic examination ADDITIONAL CLINICAL INFORMATION: Ordering Provider Reason For Exam: Fall, rule intracranial hemorrhage (accession [id number]), Fracture rule out after fall, syncope, known renal cancer (accession [id number]), Fracture rule out after fall, syncope, known renal cancer (accession [id number]), Fracture rule out, Neck pain after fall (accession [id number]) Technologist Note: Additional: Known metastatic destructive lesion in left lateral mass of C1 extending to the left transverse process, lytic metastatic lesion in the superior posterior left frontal/anterior left parietal calvarium at the vertex with adjacent dural enhancement and possible involvement, the occipital calvarium, and lacunar infarcts in the bilateral basal ganglia/capsule/insular cortex and in the jillian EXAMINATION: 1. Computed tomography (CT) of the head without contrast 2. CT of the cervical spine without contrast 3. CT of the thoracic spine without contrast 4. CT of the lumbar spine without contrast TECHNIQUE: CT of the head and cervical spine were performed without contrast according to standard protocol. Reformatted axial, sagittal, and coronal images of the thoracic and lumbar spine were obtained by the technologist from a concurrently performed body CT and sent to the workstation for review. COMPARISON: Report from MRI brain with and without contrast 02/19/2025 FINDINGS: HEAD: There is a curvilinear area of hyperattenuation along the left cerebral convexity to the measuring 2 mm in thickness which may represent dural thickening versus prominent vasculature, attention on follow-up recommended. There is no associated mass effect or midline shift. There is mild cerebral volume loss with associated ex vacuo ventricular dilatation. The basal cisterns are patent. No mass effect or midline shift is seen. Chronic lacunar infarcts are seen in bilateral basal ganglia. Hypoattenuation in the jillian likely corresponds to lacunar infarct previously described on MRI 02/19/2025. No acute territorial infarct is identified. Periventricular white matter hypoattenuation is nonspecific but can be seen in setting of small vessel disease. Atherosclerotic calcifications are present in the carotid siphons and bilateral V4 segments of the vertebral arteries. The visualized portions of the orbits, paranasal sinuses, and mastoids appear normal. CERVICAL SPINE: There is atherosclerotic calcification of the carotid bifurcations. Trace anterolisthesis of C7 on T1, most likely chronic secondary to degenerative facet arthropathy.. The prevertebral soft tissue is normal in thickness. Lucent lesion with the height loss along the left lateral mass of C1 extending into the left transverse process consistent with known metastatic disease and associated pathological fracture. There is mild widening of the left atlantooccipital joint. Pathologic or fracture is noted extending up to the anterior arch of C1 and left transverse foramina. There is adjacent soft tissue swelling involving the prevertebral and paravertebral musculature could be secondary to soft tissue component to the metastatic disease. (Image 92, 78, series 4). Please note that MRI is more sensitive for evaluation of epidural extent of the disease. Lytic lesion noted involving the left C6 articular process and also possibly involving the left occipital condyle. Possible nondisplaced pathological fracture also in noted involving the left articular process and transverse process of C6 (image 199, 196, series 3). Advanced disc degenerative changes with the disc space narrowing, anterior and posterior disc osteophyte complexes. Multilevel moderate to severe central canal stenosis most prominent at the level of C4-C5 and C3-C4 secondary to posterior disc bulges and ligamentum flavum calcifications.. Moderate to severe right-sided facet arthropathy at the level of C7-T1. Mild to moderate facet arthropathy at other levels. There are varying degrees of moderate to severe multilevel uncovertebral joint osteoarthritis most prominent at the level of right C3-C4, bilateral C4-C5 with the same degree of neural foraminal stenosis at these levels. Enlarged lymph node in the right supraclavicular region most likely metastatic lymph node. THORACIC SPINE: There is atherosclerotic calcification of the thoracic aorta and its branch vessels. Scattered lucent lesions most prominent at the level of T5, T4, T10 possibly T12 vertebral bodies and also involving the left transverse process of T3 vertebral body. There is pathologic compression fracture of the T5 vertebral body on the left with approximately 50% vertebral height loss and without retropulsion.. Inferior endplate irregularity of the T10 vertebral body in area of lucency also likely represents pathological inferior endplate compression fracture without significant height loss. The bones are mildly osteopenic. There is up to severe multilevel degenerative disc disease. Multilevel endplate irregularities and anterior disc osteophyte complexes. Mild posterior disc bulges however no significant central canal stenosis noted. There are varying degrees of up to mild to moderate facet osteoarthritis with the same degree of neural foraminal stenosis at these levels. LUMBAR SPINE: Partially visualized right renal mass likely corresponds to patient's known malignancy. Nodular appearance of the left adrenal gland also could be secondary to metastatic disease. Scattered lucent lesions noted however presence of degenerative changes limits evaluation for accurate extent of the osseous lesions. MRI of the lumbar spine with and without contrast could be performed for detailed evaluation. Severe disc degenerative changes most prominent at the level of L3-L4 with endplate sclerosis, severe disc space narrowing and vacuum degeneration.. Multilevel moderate to severe central canal stenosis most prominent at the level of L3-L4 secondary to disc osteophyte complex and and ligamentum flavum thickening. . There are varying degrees of up to severe facet osteoarthritis with the same degree of neural foraminal stenosis at these levels. Brain injury guidelines: Skull fracture: No Subdural hematoma: Suspected. Epidural hematoma: No epidural hematoma. Intraparenchymal hemorrhage: No intraparenchymal hemorrhage. Subarachnoid hemorrhage: No subarachnoid hemorrhage. Intraventricular hemorrhage: No. Midline shift: No. Procedure Note Teresa Hernandez MD - 03/14/2025 PROCEDURE: CT HEAD WO CONTRAST, CT LUMBAR SPINE WO CONTRAST, CTTHORACIC SPINE WO CONTRAST, CT CERVICAL SPINE WO CONTRAST, DATE/TIME OF EXAM: 03/14/2025 1:49 AM, LOCATION [facility] INDICATION: R55: Syncope with normal neurologic examination ADDITIONAL CLINICAL INFORMATION: Ordering Provider Reason For Exam: Fall, rule intracranial hemorrhage (accession [id number]), Fracture rule out after fall, syncope, knownrenal cancer (accession [id number]), Fracture rule out after fall, syncope,known renal cancer (accession [id number]), Fracture rule out, Neck pain afterfall (accession [id number]) Technologist Note: Additional: Known metastatic destructive lesion in left lateral mass ofC1 extending to the left transverse process, lytic metastatic lesion in the superior posterior left frontal/anterior left parietal calvarium at the vertex with adjacent dural enhancement and possible involvement, the occipital calvarium, and lacunar infarcts in the bilateral basal ganglia/capsule/insular cortex and in the jillian EXAMINATION: 1. Computed tomography (CT) of the head without contrast 2. CT of the cervical spine without contrast 3. CT of the thoracic spine without contrast 4. CT of the lumbar spine without contrast TECHNIQUE: CT of the head and cervical spine were performed without contrast according to standard protocol. Reformatted axial, sagittal,and coronal images of the thoracic and lumbar spine were obtained by the technologist from a concurrently performed body CT and sent to the workstation for review. COMPARISON: Report from MRI brain with and without contrast 02/19/2025 FINDINGS: HEAD: There is a curvilinear area of hyperattenuation along the left cerebral convexity to the measuring 2 mm in thickness which may represent dural thickening versus prominent vasculature, attention on follow-up recommended. There is no associated mass effect or midline shift. Thereis mild cerebral volume loss with associated ex vacuo ventriculardilatation. The basal cisterns are patent. No mass effect or midline shift is seen. Chronic lacunar infarcts are seen in bilateral basal ganglia. Hypoattenuation in the jillian likely corresponds to lacunar infarct previously described on MRI 02/19/2025. No acute territorial infarct is identified. Periventricular white matter hypoattenuation is nonspecificbut can be seen in setting of small vessel disease. Atherosclerotic calcifications are present in the carotid siphons and bilateral [id number] of the vertebral arteries. The visualized portions of the orbits, paranasal sinuses, and mastoids appear normal. CERVICAL SPINE: There is atherosclerotic calcification of the carotid bifurcations. Trace anterolisthesis of C7 on T1, most likely chronic secondary to degenerative facet arthropathy.. The prevertebral soft tissue is normalin thickness. Lucent lesion with the height loss along the left lateral mass of C1 extending into the left transverse process consistent with knownmetastatic disease and associated pathological fracture. There is mild widening ofthe left atlantooccipital joint. Pathologic or fracture is noted extendingup to the anterior arch of C1 and left transverse foramina. There isadjacent soft tissue swelling involving the prevertebral and paravertebral musculature could be secondary to soft tissue component to themetastatic disease. (Image 92, 78, series 4). Please note that MRI is moresensitive for evaluation of epidural extent of the disease. Lytic lesion noted involving the left C6 articular process and also possibly involving the left occipital condyle. Possible nondisplaced pathological fracture also in noted involving the left articular process and transverse process of C6 (image 199, 196, series 3). Advanced disc degenerative changes with the disc space narrowing,anterior and posterior disc osteophyte complexes. Multilevel moderate to severe central canal stenosis most prominent at the level of C4-C5 and C3-C4 secondary to posterior disc bulges and ligamentum flavumcalcifications.. Moderate to severe right-sided facet arthropathy at the level of C7-T1. Mild to moderate facet arthropathy at other levels. There are varying degrees of moderate to severe multilevel uncovertebral jointosteoarthritis most prominent at the level of right C3-C4, bilateral C4-C5 with thesame degree of neural foraminal stenosis at these levels. Enlarged lymph node in the right supraclavicular region most likely metastatic lymph node. THORACIC SPINE: There is atherosclerotic calcification of the thoracic aorta and itsbranch vessels. Scattered lucent lesions most prominent at the level of T5, T4, T10 possibly T12 vertebral bodies and also involving the left transverse process of T3 vertebral body. There is pathologic compression fracture of the T5 vertebral body on the left with approximately 50% vertebral height loss and without retropulsion.. Inferior endplate irregularity of the T10 vertebral bodyin area of lucency also likely represents pathological inferior endplate compression fracture without significant height loss. The bones aremildly osteopenic. There is up to severe multilevel degenerative disc disease. Multilevel endplate irregularities and anterior disc osteophytecomplexes. Mild posterior disc bulges however no significant central canal stenosis noted. There are varying degrees of up to mild to moderate facet osteoarthritis with the same degree of neural foraminal stenosis atthese levels. LUMBAR SPINE: Partially visualized right renal mass likely corresponds to patient'sknown malignancy. Nodular appearance of the left adrenal gland also could be secondary to metastatic disease. Scattered lucent lesions noted however presence of degenerative changes limits evaluation for accurate extent of the osseous lesions. MRI of the lumbar spine with and without contrast could be performed for detailed evaluation. Severe disc degenerative changes most prominent at the level of L3-L4with endplate sclerosis, severe disc space narrowing and vacuumdegeneration.. Multilevel moderate to severe central canal stenosis most prominent atthe level of L3-L4 secondary to disc osteophyte complex and and ligamentum flavum thickening. . There are varying degrees of up to severe facet osteoarthritis with the same degree of neural foraminal stenosis atthese levels. Brain injury guidelines: Skull fracture: No Subdural hematoma: Suspected. Epidural hematoma: No epidural hematoma. Intraparenchymal hemorrhage: No intraparenchymal hemorrhage. Subarachnoid hemorrhage: No subarachnoid hemorrhage. Intraventricular hemorrhage: No. Midline shift: No. IMPRESSION: HEAD: 1.No acute intracranial hemorrhage, mass effect or midline shift. Slight linear extra-axial hyperattenuation along the left frontoparietal bonemost likely secondary to prominent vasculature, versus dural thickening. 2.Redemonstrated lytic lesions in the left parietal bone the vertex consistent with patient's known metastatic disease. 3.Previously described chronic lacunar infarcts as detailed above. SPINE: Cervical: 1.Sequela of metastatic disease involving throughout the spine asdetailed above. Please note that MRI with and without contrast is more sensitivefor detailed evaluation of the osseous disease and for any epiduralextent/soft tissue of the disease. Lucent lesions noted involving the left lateral mass of C1, left lateral articular process of C6 as detailed above with associated pathological fractures. There is significant soft tissue component along the left lateral mass of C1 with soft tissue thickening involving the adjacent prevertebral and paravertebral musculature. MRI is recommended for evaluation of epidural extension of the disease. However no associated significant central canal stenosis noted. Thoracic spine: 1.Pathologic compression fracture of T5 vertebral body withapproximately 50% vertebral height loss and without retropulsion.. 2.Inferior endplate irregularity of the T10 vertebral body with adjacent area of lucency also concerning for pathologic fracture withoutsignificant height loss or retropulsion. Lumbar: No evidence of acute fractures. Scattered lytic lesions noted howeverthese could be sequela of focal osteopenia and metastatic lesions, MRI lumbar spine with and without contrast is more accurate for detailed evaluationof the metastatic disease. Critical findings were discussed in detail with the patient's care provider, Dr. Nicko Barnes by Dr. Huffman via telephone at 3:00 AM on 03/14/2025 with readback comprehension and verification. This report was dictated by Carlos Huffman M.D. (DR/IR Resident). I, Teresa Hernandez MD have personally reviewed and interpreted this examination/study. > Interpreting Provider: Teresa Hernandez MD on 03/14/2025 9:09 PM Ventura Lopez MD CT ORDERABLES Final Result * CT HEAD WO CONTRAST (03/14/2025 1:49 AM CDT) Anatomical Region Laterality Modality Head Computed Tomogra phy 03/14/2025 2:32 AM CDT Impressions 03/14/2025 9:09 PM CDT IMPRESSION: HEAD: 1.No acute intracranial hemorrhage, mass effect or midline shift. Slight linear extra-axial hyperattenuation along the left frontoparietal bone most likely secondary to prominent vasculature, versus dural thickening. 2.Redemonstrated lytic lesions in the left parietal bone the vertex consistent with patient's known metastatic disease. 3.Previously described chronic lacunar infarcts as detailed above. SPINE: Cervical: 1.Sequela of metastatic disease involving throughout the spine as detailed above. Please note that MRI with and without contrast is more sensitive for detailed evaluation of the osseous disease and for any epidural extent/soft tissue of the disease. Lucent lesions noted involving the left lateral mass of C1, left lateral articular process of C6 as detailed above with associated pathological fractures. There is significant soft tissue component along the left lateral mass of C1 with soft tissue thickening involving the adjacent prevertebral and paravertebral musculature. MRI is recommended for evaluation of epidural extension of the disease. However no associated significant central canal stenosis noted. Thoracic spine: 1.Pathologic compression fracture of T5 vertebral body with approximately 50% vertebral height loss and without retropulsion.. 2.Inferior endplate irregularity of the T10 vertebral body with adjacent area of lucency also concerning for pathologic fracture without significant height loss or retropulsion. Lumbar: No evidence of acute fractures. Scattered lytic lesions noted however these could be sequela of focal osteopenia and metastatic lesions, MRI lumbar spine with and without contrast is more accurate for detailed evaluation of the metastatic disease. Critical findings were discussed in detail with the patient's care provider, Dr. Nicko Barnes by Dr. Huffman via telephone at 3:00 AM on 03/14/2025 with readback comprehension and verification. This report was dictated by Carlos Huffman M.D. (DR/IR Resident). I, Teresa Hernandez MD have personally reviewed and interpreted this examination/study. > Interpreting Provider: Teresa Hernandez MD on 03/14/2025 9:09 PM Narrative 03/14/2025 9:09 PM CDT PROCEDURE: CT HEAD WO CONTRAST, CT LUMBAR SPINE WO CONTRAST, CT THORACIC SPINE WO CONTRAST, CT CERVICAL SPINE WO CONTRAST, DATE/TIME OF EXAM: 03/14/2025 1:49 AM, LOCATION [facility] INDICATION: R55: Syncope with normal neurologic examination ADDITIONAL CLINICAL INFORMATION: Ordering Provider Reason For Exam: Fall, rule intracranial hemorrhage (accession [id number]), Fracture rule out after fall, syncope, known renal cancer (accession [id number]), Fracture rule out after fall, syncope, known renal cancer (accession [id number]), Fracture rule out, Neck pain after fall (accession [id number]) Technologist Note: Additional: Known metastatic destructive lesion in left lateral mass of C1 extending to the left transverse process, lytic metastatic lesion in the superior posterior left frontal/anterior left parietal calvarium at the vertex with adjacent dural enhancement and possible involvement, the occipital calvarium, and lacunar infarcts in the bilateral basal ganglia/capsule/insular cortex and in the jillian EXAMINATION: 1. Computed tomography (CT) of the head without contrast 2. CT of the cervical spine without contrast 3. CT of the thoracic spine without contrast 4. CT of the lumbar spine without contrast TECHNIQUE: CT of the head and cervical spine were performed without contrast according to standard protocol. Reformatted axial, sagittal, and coronal images of the thoracic and lumbar spine were obtained by the technologist from a concurrently performed body CT and sent to the workstation for review. COMPARISON: Report from MRI brain with and without contrast 02/19/2025 FINDINGS: HEAD: There is a curvilinear area of hyperattenuation along the left cerebral convexity to the measuring 2 mm in thickness which may represent dural thickening versus prominent vasculature, attention on follow-up recommended. There is no associated mass effect or midline shift. There is mild cerebral volume loss with associated ex vacuo ventricular dilatation. The basal cisterns are patent. No mass effect or midline shift is seen. Chronic lacunar infarcts are seen in bilateral basal ganglia. Hypoattenuation in the jillian likely corresponds to lacunar infarct previously described on MRI 02/19/2025. No acute territorial infarct is identified. Periventricular white matter hypoattenuation is nonspecific but can be seen in setting of small vessel disease. Atherosclerotic calcifications are present in the carotid siphons and bilateral V4 segments of the vertebral arteries. The visualized portions of the orbits, paranasal sinuses, and mastoids appear normal. CERVICAL SPINE: There is atherosclerotic calcification of the carotid bifurcations. Trace anterolisthesis of C7 on T1, most likely chronic secondary to degenerative facet arthropathy.. The prevertebral soft tissue is normal in thickness. Lucent lesion with the height loss along the left lateral mass of C1 extending into the left transverse process consistent with known metastatic disease and associated pathological fracture. There is mild widening of the left atlantooccipital joint. Pathologic or fracture is noted extending up to the anterior arch of C1 and left transverse foramina. There is adjacent soft tissue swelling involving the prevertebral and paravertebral musculature could be secondary to soft tissue component to the metastatic disease. (Image 92, 78, series 4). Please note that MRI is more sensitive for evaluation of epidural extent of the disease. Lytic lesion noted involving the left C6 articular process and also possibly involving the left occipital condyle. Possible nondisplaced pathological fracture also in noted involving the left articular process and transverse process of C6 (image 199, 196, series 3). Advanced disc degenerative changes with the disc space narrowing, anterior and posterior disc osteophyte complexes. Multilevel moderate to severe central canal stenosis most prominent at the level of C4-C5 and C3-C4 secondary to posterior disc bulges and ligamentum flavum calcifications.. Moderate to severe right-sided facet arthropathy at the level of C7-T1. Mild to moderate facet arthropathy at other levels. There are varying degrees of moderate to severe multilevel uncovertebral joint osteoarthritis most prominent at the level of right C3-C4, bilateral C4-C5 with the same degree of neural foraminal stenosis at these levels. Enlarged lymph node in the right supraclavicular region most likely metastatic lymph node. THORACIC SPINE: There is atherosclerotic calcification of the thoracic aorta and its branch vessels. Scattered lucent lesions most prominent at the level of T5, T4, T10 possibly T12 vertebral bodies and also involving the left transverse process of T3 vertebral body. There is pathologic compression fracture of the T5 vertebral body on the left with approximately 50% vertebral height loss and without retropulsion.. Inferior endplate irregularity of the T10 vertebral body in area of lucency also likely represents pathological inferior endplate compression fracture without significant height loss. The bones are mildly osteopenic. There is up to severe multilevel degenerative disc disease. Multilevel endplate irregularities and anterior disc osteophyte complexes. Mild posterior disc bulges however no significant central canal stenosis noted. There are varying degrees of up to mild to moderate facet osteoarthritis with the same degree of neural foraminal stenosis at these levels. LUMBAR SPINE: Partially visualized right renal mass likely corresponds to patient's known malignancy. Nodular appearance of the left adrenal gland also could be secondary to metastatic disease. Scattered lucent lesions noted however presence of degenerative changes limits evaluation for accurate extent of the osseous lesions. MRI of the lumbar spine with and without contrast could be performed for detailed evaluation. Severe disc degenerative changes most prominent at the level of L3-L4 with endplate sclerosis, severe disc space narrowing and vacuum degeneration.. Multilevel moderate to severe central canal stenosis most prominent at the level of L3-L4 secondary to disc osteophyte complex and and ligamentum flavum thickening. . There are varying degrees of up to severe facet osteoarthritis with the same degree of neural foraminal stenosis at these levels. Brain injury guidelines: Skull fracture: No Subdural hematoma: Suspected. Epidural hematoma: No epidural hematoma. Intraparenchymal hemorrhage: No intraparenchymal hemorrhage. Subarachnoid hemorrhage: No subarachnoid hemorrhage. Intraventricular hemorrhage: No. Midline shift: No. Procedure Note Teresa Hernandez MD - 03/14/2025 PROCEDURE: CT HEAD WO CONTRAST, CT LUMBAR SPINE WO CONTRAST, CTTHORACIC SPINE WO CONTRAST, CT CERVICAL SPINE WO CONTRAST, DATE/TIME OF EXAM: 03/14/2025 1:49 AM, LOCATION [facility] INDICATION: R55: Syncope with normal neurologic examination ADDITIONAL CLINICAL INFORMATION: Ordering Provider Reason For Exam: Fall, rule intracranial hemorrhage (accession [id number]), Fracture rule out after fall, syncope, knownrenal cancer (accession [id number]), Fracture rule out after fall, syncope,known renal cancer (accession [id number]), Fracture rule out, Neck pain afterfall (accession [id number]) Technologist Note: Additional: Known metastatic destructive lesion in left lateral mass ofC1 extending to the left transverse process, lytic metastatic lesion in the superior posterior left frontal/anterior left parietal calvarium at the vertex with adjacent dural enhancement and possible involvement, the occipital calvarium, and lacunar infarcts in the bilateral basal ganglia/capsule/insular cortex and in the jillian EXAMINATION: 1. Computed tomography (CT) of the head without contrast 2. CT of the cervical spine without contrast 3. CT of the thoracic spine without contrast 4. CT of the lumbar spine without contrast TECHNIQUE: CT of the head and cervical spine were performed without contrast according to standard protocol. Reformatted axial, sagittal,and coronal images of the thoracic and lumbar spine were obtained by the technologist from a concurrently performed body CT and sent to the workstation for review. COMPARISON: Report from MRI brain with and without contrast 02/19/2025 FINDINGS: HEAD: There is a curvilinear area of hyperattenuation along the left cerebral convexity to the measuring 2 mm in thickness which may represent dural thickening versus prominent vasculature, attention on follow-up recommended. There is no associated mass effect or midline shift. Thereis mild cerebral volume loss with associated ex vacuo ventriculardilatation. The basal cisterns are patent. No mass effect or midline shift is seen. Chronic lacunar infarcts are seen in bilateral basal ganglia. Hypoattenuation in the jillain likely corresponds to lacunar infarct previously described on MRI 02/19/2025. No acute territorial infarct is identified. Periventricular white matter hypoattenuation is nonspecificbut can be seen in setting of small vessel disease. Atherosclerotic calcifications are present in the carotid siphons and bilateral [id number] of the vertebral arteries. The visualized portions of the orbits, paranasal sinuses, and mastoids appear normal. CERVICAL SPINE: There is atherosclerotic calcification of the carotid bifurcations. Trace anterolisthesis of C7 on T1, most likely chronic secondary to degenerative facet arthropathy.. The prevertebral soft tissue is normalin thickness. Lucent lesion with the height loss along the left lateral mass of C1 extending into the left transverse process consistent with knownmetastatic disease and associated pathological fracture. There is mild widening ofthe left atlantooccipital joint. Pathologic or fracture is noted extendingup to the anterior arch of C1 and left transverse foramina. There isadjacent soft tissue swelling involving the prevertebral and paravertebral musculature could be secondary to soft tissue component to themetastatic disease. (Image 92, 78, series 4). Please note that MRI is moresensitive for evaluation of epidural extent of the disease. Lytic lesion noted involving the left C6 articular process and also possibly involving the left occipital condyle. Possible nondisplaced pathological fracture also in noted involving the left articular process and transverse process of C6 (image 199, 196, series 3). Advanced disc degenerative changes with the disc space narrowing,anterior and posterior disc osteophyte complexes. Multilevel moderate to severe central canal stenosis most prominent at the level of C4-C5 and C3-C4 secondary to posterior disc bulges and ligamentum flavumcalcifications.. Moderate to severe right-sided facet arthropathy at the level of C7-T1. Mild to moderate facet arthropathy at other levels. There are varying degrees of moderate to severe multilevel uncovertebral jointosteoarthritis most prominent at the level of right C3-C4, bilateral C4-C5 with thesame degree of neural foraminal stenosis at these levels. Enlarged lymph node in the right supraclavicular region most likely metastatic lymph node. THORACIC SPINE: There is atherosclerotic calcification of the thoracic aorta and itsbranch vessels. Scattered lucent lesions most prominent at the level of T5, T4, T10 possibly T12 vertebral bodies and also involving the left transverse process of T3 vertebral body. There is pathologic compression fracture of the T5 vertebral body on the left with approximately 50% vertebral height loss and without retropulsion.. Inferior endplate irregularity of the T10 vertebral bodyin area of lucency also likely represents pathological inferior endplate compression fracture without significant height loss. The bones aremildly osteopenic. There is up to severe multilevel degenerative disc disease. Multilevel endplate irregularities and anterior disc osteophytecomplexes. Mild posterior disc bulges however no significant central canal stenosis noted. There are varying degrees of up to mild to moderate facet osteoarthritis with the same degree of neural foraminal stenosis atthese levels. LUMBAR SPINE: Partially visualized right renal mass likely corresponds to patient'sknown malignancy. Nodular appearance of the left adrenal gland also could be secondary to metastatic disease. Scattered lucent lesions noted however presence of degenerative changes limits evaluation for accurate extent of the osseous lesions. MRI of the lumbar spine with and without contrast could be performed for detailed evaluation. Severe disc degenerative changes most prominent at the level of L3-L4with endplate sclerosis, severe disc space narrowing and vacuumdegeneration.. Multilevel moderate to severe central canal stenosis most prominent atthe level of L3-L4 secondary to disc osteophyte complex and and ligamentum flavum thickening. . There are varying degrees of up to severe facet osteoarthritis with the same degree of neural foraminal stenosis atthese levels. Brain injury guidelines: Skull fracture: No Subdural hematoma: Suspected. Epidural hematoma: No epidural hematoma. Intraparenchymal hemorrhage: No intraparenchymal hemorrhage. Subarachnoid hemorrhage: No subarachnoid hemorrhage. Intraventricular hemorrhage: No. Midline shift: No. IMPRESSION: HEAD: 1.No acute intracranial hemorrhage, mass effect or midline shift. Slight linear extra-axial hyperattenuation along the left frontoparietal bonemost likely secondary to prominent vasculature, versus dural thickening. 2.Redemonstrated lytic lesions in the left parietal bone the vertex consistent with patient's known metastatic disease. 3.Previously described chronic lacunar infarcts as detailed above. SPINE: Cervical: 1.Sequela of metastatic disease involving throughout the spine asdetailed above. Please note that MRI with and without contrast is more sensitivefor detailed evaluation of the osseous disease and for any epiduralextent/soft tissue of the disease. Lucent lesions noted involving the left lateral mass of C1, left lateral articular process of C6 as detailed above with associated pathological fractures. There is significant soft tissue component along the left lateral mass of C1 with soft tissue thickening involving the adjacent prevertebral and paravertebral musculature. MRI is recommended for evaluation of epidural extension of the disease. However no associated significant central canal stenosis noted. Thoracic spine: 1.Pathologic compression fracture of T5 vertebral body withapproximately 50% vertebral height loss and without retropulsion.. 2.Inferior endplate irregularity of the T10 vertebral body with adjacent area of lucency also concerning for pathologic fracture withoutsignificant height loss or retropulsion. Lumbar: No evidence of acute fractures. Scattered lytic lesions noted howeverthese could be sequela of focal osteopenia and metastatic lesions, MRI lumbar spine with and without contrast is more accurate for detailed evaluationof the metastatic disease. Critical findings were discussed in detail with the patient's care provider, Dr. Nicko Barnes by Dr. Huffman via telephone at 3:00 AM on 03/14/2025 with readback comprehension and verification. This report was dictated by Carlos Huffman M.D. (/IR Resident). I, Teresa Hernandez MD have personally reviewed and interpreted this examination/study. > Interpreting Provider: Teresa Hernandez MD on 03/14/2025 9:09 PM Ventura Lopez MD CT ORDERABLES Final Result * XR Chest 1Vw (03/14/2025 1:13 AM CDT) Anatomical Region Laterality Modality Chest Digital Radiogra phy 03/14/2025 7:07 AM CDT Impressions 03/14/2025 7:08 AM CDT IMPRESSION: No acute findings in the chest. > Interpreting Provider: Victoria Hudson MD on 03/14/2025 7:08 AM Narrative 03/14/2025 7:08 AM CDT PROCEDURE: XR CHEST 1VW DATE/TIME OF EXAM: 03/14/2025 1:21 AM CLINICAL INFORMATION: None relevant/not provided if blank. Indication: R55: Syncope with normal neurologic examination Additional History: COMPARISON: None. FINDINGS: Lungs are moderately expanded. No acute consolidations or air space opacities are seen. An approximately 1 cm calcified nodule is noted in the right perihilar region suggesting a granuloma. No pleural effusion or pneumothorax seen. Cardiac and mediastinal opacities and outline are normally maintained. 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 Procedure Note Victoria Hudson MD - 03/14/2025 PROCEDURE: XR CHEST 1VW DATE/TIME OF EXAM: 03/14/2025 1:21 AM CLINICAL INFORMATION: None relevant/not provided if blank. Indication: R55: Syncope with normal neurologic examination Additional History: COMPARISON: None. FINDINGS: Lungs are moderately expanded. No acute consolidations or air space opacities are seen. An approximately1 cm calcified nodule is noted in the right perihilar region suggesting a granuloma. No pleural effusion or pneumothorax seen. Cardiac and mediastinal opacities and outline are normally maintained. 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 IMPRESSION: No acute findings in the chest. > Interpreting Provider: Victoria Hudson MD on 57:08 AM Ventura Lopez MD DIAGNOSTIC IMAGING ORDERABLES Fi nal Result * TROPONIN-I HIGH SENSITIVE REFLEX 1HOUR (03/14/2025 12:40 AM CDT) Troponin I High Sensitive 5 <=35 ng/L 03/14/2025 1:24 AM CDT [facility] Delta Troponin I HS 03/14/2025 1:24 AM CDT [facility] Comment:Delta value intentio analy not calculated. Baseline to 1 hour specimen collection interval exceeded. Blood BLOOD SPECIMEN / Unknown Venipuncture / Unknown 03/14/2025 12:40 AM CDT 03/14/2025 12:49 AM CDT Ventura Lopez MD LAB - CHEMISTRY ORDERABLES Final Result Performing Organization Address City/[facility]/ZIP Co de Phone Number [facility] [address] [place] [address], [place] [phone] * PARVEZ DIRECT C3 (03/14/2025 12:40 AM CDT) Anti-C3 Parvez NEG 03/14/2025 2:14 PM CDT [facility] Blood Bank BLOOD SPECIMEN / Unknown Venipuncture / Unknown 03/14/2025 12:40 AM CDT 03/14/2025 12:52 AM CDT Ventura Lopez MD LAB - BLOOD BANK ORDERABLES Paulina l Result Performing Organization Address City/[facility]/ZIP Co de Phone Number [facility] [address] [place] [address], [place] [phone] * PARVEZ DIRECT IGG (03/14/2025 12:40 AM CDT) IgG Parvez NEG 03/14/2025 2:14 PM CDT [facility] Blood Bank BLOOD SPECIMEN / Unknown Venipuncture / Unknown 03/14/2025 12:40 AM CDT 03/14/2025 12:52 AM CDT Ventura Lopez MD LAB - BLOOD BANK ORDERABLES Paulina l Result Performing Organization Address City/[facility]/ZIP Co de Phone Number [facility] [address] [place] [address], [place] [phone] * PREPARE (CROSSMATCH) RBC UNIT(S), 2 Units (03/14/2025 12:40 AM CDT) Unit Description AS1 LR PRBC [facility] Unit ABO O [facility] Unit Rh POS [facility] Product Number R02 [facility] Unit Donor # [id number] [facility] Unit Status released [facility] Product Code [id number] [facility] Blood Type Barcode 5100 [facility] Expiration Date S [facility] Unit Description AS1 LR PRBC [facility] Unit ABO O [facility] Unit Rh POS [facility] Product Number R02 [facility] Unit Donor # [id number] [facility] Unit Status released [facility] Product Code [id number] [facility] SERVICES BLO OD BANK LAB Blood Type Barcode 5100 [facility] B[facility]OD [facility] LAB Expiration Date S BLOOD BANK LAB Blood Bank BLOOD SPECIMEN / Unknown 03/14/2025 12:40 AM CDT 03/14/2025 12:52 AM CDT us Fletcher Zuniga MD LAB - BLOOD BANK ORDERABLES Final Result [facility] [address] [place] [address], [facility] [phone] * (ABNORMAL) URINALYSIS REFLEX TO MICROSCOPIC NO CULTURE (03/14/2025 12:40 AM CDT) Color UA Yellow Yellow, Straw 03/14/2025 12:48 AM CDT [facility] Clarity UA Clear Clear 03/14/2025 12:48 AM CDT [facility] Glucose UA Normal Normal 03/14/2025 12:48 AM CDT [facility] Bilirubin UA Negative Negative 03/14/2025 12:48 AM CDT [facility] Ketone UA Negative Negative 03/14/2025 12:48 AM CDT [facility] Specific [place] UA 1.032(H) 1.005 - 1.030 03/14/2025 12:48 AM CDT [facility] Blood UA Negative Negative 03/14/2025 12:48 AM CDT [facility] pH UA 7.5 5.0 - 8.0 03/14/2025 12:48 AM CDT [facility] Protein UA Negative Negative 03/14/2025 12:48 AM CDT [facility] Urobilinogen UA Normal Normal mg/dL 03/14/2025 12:48 AM CDT [facility] Nitrite UA Negative Negative 03/14/2025 12:48 AM CDT [facility] Leukocyte Esterase UA Negative Negative 03/14/2025 12:48 AM CDT [facility] Urine Microscopy Urine microscopy not indicated 03/14/2025 12:48 AM CDT [facility] Urine URINE SPECIMEN OBTAINED BY CLEAN CATCH PROCEDURE / Unknown Collection / Unknown 03/14/2025 12:40 AM CDT 03/14/2025 12:41 AM CDT Ventura Lopez MD LAB - URINALYSIS ORDERABLES Paulina l Result [facility] [address] [place] [address], [place] [phone] * TYPE + SCREEN PANEL (03/14/2025 12:40 AM CDT) Antibody Screen POS 2:19 AM CDT [facility] ABO Rh O POS 03/14/2025 2:19 AM CDT [facility] Blood Bank BLOOD SPECIMEN / Unknown Venipuncture / Unknown 03/14/2025 12:40 AM CDT 03/14/2025 12:52 AM CDT Ventura Lopez MD LAB - BLOOD BANK ORDERABLES Edit ed Result - Final [facility] [address] [place] [address], [place] [phone] * PARVEZ DIRECT (03/14/2025 12:40 AM CDT) Direct Parvez (FAY) NEG 03/14/2025 2:47 AM CDT [facility] B[facility]OD [facility] Blood Bank BLOOD SPECIMEN / Unknown Venipuncture / Unknown 03/14/2025 12:40 AM CDT 03/14/2025 12:52 AM CDT Ventura Lopez MD LAB - BLOOD BANK ORDERABLES Apulina l Result Performing Organization Address City/[facility]/ZIP Co de Phone Number [facility] [address] [place] [address], [place] [phone] * ANTIBODY IDENTIFICATION (03/14/2025 12:40 AM CDT) Antibody 1 POS, Cold Auto Anti-I 03/14/2025 2:13 PM CDT [facility] Blood Bank BLOOD SPECIMEN / Unknown Venipuncture / Unknown 03/14/2025 12:40 AM CDT 03/14/2025 12:52 AM CDT Ventura Lopez MD LAB - BLOOD BANK ORDERABLES Paulina l Result Performing Organization Address [facility] Co de Phone Number [facility] [address] [place] [address], [place] [phone] * PT-INR (03/14/2025 12:40 AM CDT) PT 14.6 12.1 - 14.8 Seconds 03/14/2025 1:34 AM CDT [facility] INR 1.2 See Comment 03/14/2025 1:34 AM CDT [facility] Comment:The suggested therap eutic range for standard coumadin (warfarin) therapy is an INR of 2.0-3.0. For high-risk patients (Mechanical Mitral Valve Prosthesis, etc.), the suggested prophylactic therapeutic range is an INR of 2.5-3.5. Blood BLOOD SPECIMEN / Unknown Venipuncture / Unknown 03/14/2025 12:40 AM CDT 03/14/2025 12:49 AM CDT Ventura Lopez MD LAB - COAGULATION ORDERABLES Fin al Result Performing Organization Address City/[facility]/ZIP Co de Phone Number [facility] [address] [place] [address], [place] [phone] * B-TYPE NATRIURETIC PEPTIDE (03/14/2025 12:40 AM CDT) Pathologist [facility] BNP 24 <100 pg/mL 03/14/2025 1:23 AM CDT [facility] Comment: A decision threshold of 100 pg/mL has been demonstrated to provide the maximal combination of sensitivity, specificity and predictive value for the diagnosis of congestive heart failure (CHF). Virtually all patients with no evidence of CHF have BNP values less than 100 pg/mL. A BNP value greater than 100 pg/mL is consistent with the diagnosis of CHF in the appropriate clinical setting. In a study of 693 patients (male and female) with diagnosed CHF, the following values were determined based on the NYHA functional classification system: NYHA Functional Class Mean Valule (pg/mL) % >100 pg/mL I 320 58.1 II 432 73.0 III 656 79.0 IV 1635 98.3 Blood BLOOD SPECIMEN / Unknown Venipuncture / Unknown 03/14/2025 12:40 AM CDT 03/14/2025 12:49 AM CDT us Ventura Lopez MD LAB - CHEMISTRY ORDERABLES Final Result [address] [address], [facility] [phone] * TROPONIN-I HIGH SENSITIVE BASELINE + 1HR (03/13/2025 11:59 PM CDT) [facility] Troponin I High Sensitive 5 <=35 ng/L 03/14/2025 1:21 AM CDT [facility] Blood BLOOD SPECIMEN / Unknown Venipuncture / Unknown 03/13/2025 11:59 PM CDT 03/14/2025 12:07 AM CDT Ventura Lopez MD LAB - CHEMISTRY ORDERABLES Final Result [address] [address], [place] [phone] * (ABNORMAL) DIFFERENTIAL MANUAL (03/13/2025 11:59 PM CDT) Pathologist [facility] Neutrophil % 97(H) 41 - 74 % 03/14/2025 1:48 AM [facility] Lymphocyte % 1(L) 17 - 47 % 03/14/2025 1:48 AM [facility] Eosinophil % 2 0 - 7 % 03/14/2025 1:48 AM [facility] Neutrophil Absolute 53.06(H) 1.60 - 7.50 x10E9/L 03/14/2025 1:48 AM T [facility] Lymphocyte Absolute 0.55(L) 1.00 - 4.40 x10E9/L 03/14/2025 1:48 AM T [facility] Eosinophil Absolute 1.09(H) 0.00 - 0.60 x10E9/L 03/14/2025 1:48 AM [facility] RBC Morphology REVIEWED 03/14/2025 1:48 AM [facility] [place] Cells MODERATE(A) (none) 03/14/2025 1:48 AM [facility] Dimorphic RBC Population PRESENT(A) (none) 03/14/2025 1:48 AM [facility] Blood BLOOD SPECIMEN / Unknown Venipuncture / Unknown 03/13/2025 11:59 PM CDT 03/14/2025 12:07 AM CDT us Ventura Lopez MD LAB - HEMATOLOGY ORDERABLES Paulina l Result Performing Organization Address City/State/[facility] Co de Phone Number [facility] [address] [place] [address], [facility] [phone] * (ABNORMAL) CBC W AUTO DIFFERENTIAL (03/13/2025 11:59 PM CDT) Pathologist [facility] WBC 54.7(H) 4.0 - 10.7 x10E9/L 03/14/2025 1:49 AM [facility] RBC Count 3.42(L) 4.30 - 5.80 x10E12/L 03/14/2025 1:49 AM [facility] Hemoglobin 10.0(L) 13.3 - 17.5 g/dL 03/14/2025 1:49 AM [facility] Hematocrit 28.6(L) 38.7 - 51.1 % 03/14/2025 1:49 AM [facility] MCV 83.6 80.0 - 98.0 fL 03/14/2025 1:49 AM [facility] MCH 29.2 26.7 - 33.6 pg 03/14/2025 1:49 AM [facility] MCHC 35.0 31.7 - 36.3 g/dL 03/14/2025 1:49 AM [facility] RDW-CV 17.1(H) 11.3 - 14.8 % 03/14/2025 1:49 AM [facility] Platelet Count 106(L) 150 - 420 x10E9/L 03/14/2025 1:49 AM [facility] MPV 10.5 7.8 - 11.4 fL 03/14/2025 1:49 AM [facility] Blood BLOOD SPECIMEN / Unknown Venipuncture / Unknown 03/13/2025 11:59 PM CDT 03/14/2025 12:07 AM CDT Ventura Lopez MD LAB - HEMATOLOGY ORDERABLES Paulina gordillo Result Performing Organization Address [facility]/State/ZIP Co de Phone Number [facility] [address] [place] [address], [facility] [phone] * (ABNORMAL) COMPREHENSIVE METABOLIC PANEL (03/13/2025 11:59 PM CDT) BUN 14 7 - 26 mg/dL 03/14/2025 1:21 AM [facility] Creatinine 0.51(L) 0.71 - 1.16 mg/dL 03/14/2025 1:21 AM [facility] Sodium 131(L) 136 - 145 mmol/L 03/14/2025 1:21 AM [facility] Potassium 4.4 3.5 - 4.5 mmol/L 03/14/2025 1:21 AM [facility] Comment:Hemolysis detected i n this specimen. Hemolysis may cause false elevations in potassium leading to pseudohyperkalemia or masked hypokalemia. Recommend repeat testing if clinically indicated. Chloride 102 98 - 107 mmol/L 03/14/2025 1:21 AM [facility] CO2 22 22 - 29 mmol/L 03/14/2025 1:21 AM [facility] Glucose 84 70 - 99 mg/dL 03/14/2025 1:21 AM [facility] Calcium 8.4 8.4 - 10.2 mg/dL 03/14/2025 1:21 AM [facility] Protein Total 6.0 6.0 - 8.3 g/dL 03/14/2025 1:21 AM [facility] Comment:Hemolysis detected i n this specimen. Hemolysis is known to cause elevations in this analyte. Caution should be exercised in the interpretation of this result. Recommend repeat testing if clinically indicated. Albumin 3.4 3.4 - 5.0 g/dL 03/14/2025 1:21 AM [facility] Bilirubin Total 0.5 0.2 - 1.2 mg/dL 03/14/2025 1:21 AM [facility] Alkaline Phosphatase 182(H) 40 - 150 U/L 03/14/2025 1:21 AM [facility] ALT 65(H) 5 - 55 U/L 03/14/2025 1:21 AM [facility] AST 93(H) 5 - 34 U/L 03/14/2025 1:21 AM [facility] Comment:Hemolysis detected i n this specimen. Hemolysis is known to cause elevations in this analyte. Caution should be exercised in the interpretation of this result. Recommend repeat testing if clinically indicated. Anion Gap 7 6 - 16 03/14/2025 1:21 AM [facility] BUN/Creatinine Ratio 27(H) 7 - 23 03/02 1:21 AM [facility] Osmolality Calculated 272(L) 275 - 295 mOsm/kg 03/14/2025 1:21 AM [facility] Albumin/Globulin Ratio 1.3 1.1 - 2.3 03/14/2025 1: AM [facility] eGFR by CKD-EPI >90 >=90 mL/min/1 .73 m2 03/14/2025 1:21 AM CDT [facility] Comment:Estimated Glomerular Filtration Rate (eGFR) calculated using the CKD-EPI Creatinine Equation (2020), per the National Kidney Foundation and [place] [employer] Neph[employer] recommendations. Blood BLOOD SPECIMEN / Unknown Venipuncture / Unknown 03/13/2025 11:59 PM CDT 03/14/2025 12:07 AM CDT Ventura Lopez MD LAB - CHEMISTRY ORDERABLES Final Result [facility] [address] [place] [address], [facility] [phone] * EKG 12-Lead (03/13/2025 11:54 PM CDT) Ventricular Rate 85 BPM [facility] Atrial Rate 85 BPM [facility] P-R Interval 170 ms [facility] QRS Duration ms 98 ms [facility] Q-T Interval ms 356 ms [facility] QTC Calculation (Bezet) 423 ms [facility] MUSE Calculated P [place] 70 degrees [facility] MUSE Calculated R [place] -18 degrees [facility] MUSE Calculated T [place] 76 degrees SL MUSE Interpretation EKG NORMAL SINUS RHYTHM SEPTAL INFARCT , AGE UNDETERMINED ABNORMAL ECG NO PREVIOUS ECGS AVAILABLE Confirmed by ADAN DUMAS, BERNICE ([id number]) on 03/17/2025 9:13:45 AM [facility] MUSE 03/13/2025 11:5 4 PM CDT 03/17/2025 9:13 AM CDT Ventura Lopez MD ECG ORDERABLES Edited Result - Final Performing Organization Address City/[facility]/ZIP Co de Phone Number [facility] MUSE from Last [address] [place] [address] [facility] MANAGED MEDICARE ADV Care Teams Materials Director Relationship Specialty Start Date End Date Connor Rahman MD [address] [place] [id number] PCP - General Family Medicine 03/13/25
== END 2025-05-06 09:31 | disposition home or self-care (01) ==
PROVIDERS: PCP Family Medicine; Visit Provider Nurse Practitioner Adult Health
DX: M84.48XA Pathological fracture, other site, initial encounter for fracture (principal); M47.892 Other spondylosis, cervical region
CPT/HCPCS: 72040; 72110

== ENCOUNTER 2025-06-22 11:35 | Outpatient (CLI) | payer MEDICARE, SELFPAY ==
--- NOTE | ~2025-06-22 | XR_ITS ---
[id number] Indication: AP/LAT Comparison: None Findings: The vertebral heights are intact. No fracture or subluxation. Severe loss of disc height C3-4 C4-5 C5-6 and C6-7. Soft tissues unremarkable Impression: No acute abnormality. Reviewed, dictated and finalized at location P. Impression: No acute abnormality.
--- OUTSIDE RECORDS SUMMARY | 2025-06-22 08:30 | XMS_ITS | Encounter Summary ---
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 Procedures NORMAL SALINE SHABNAM INF UP TO 1000CC Jenaro Green MD [address] [place] [address] Phone: tel: fax: Jenaro Green MD [address] [place] [address] Phone: tel: fax: Referral ID Status Reason Start Date Expiration Date V isits Requested Visits Authorized [id number] Authorized 03/30/2025 09/01/2027 1 1 Encounter Details Date Type Department Care Team (Latest Contact Info) Description 06/22/2025 8:30 AM CDT Clinical Support [facility] [address] [phone] Nurse, Tracy FUENTES Neuroendocrine carcinoma (Primary Dx); Hypomagnesemia; 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 Social History Tobacco Use Types Packs/Day Years [...] on file documented as of this encounter Progress Notes * Brenda Garsia RN - 06/22/2025 2:13 PM CDT 06/22/25 0850 [REMOVED] Peripheral IV 06/22/25 Distal;Posterior;Right Forearm Removal Date/Time: 06/22/25 1100 Placement Date/Time: 06/22/25 0850 Size (Gauge): 22 G Orientation:Distal;Posterior;Right Location: Forearm Site Assessment Clean;Dry;Intact Dressing Type Transparent Line Status Blood return noted;Flushed;Lab draw Dressing Status Clean;Dry;Intact Dressing Intervention New dressing * Brenda Garsia RN - 06/22/2025 8:30 AM CDT Patient in for fluids and labs. PIV inserted to right arm. Labs drawn via peripheral IV. Patient tolerated 4gm Mag well. PIV removed intact, gauze/coban applied. Patient performance has not changed since arrival to clinic. Patient discharged ambulatory accompanied by support person. documented in this encounter Plan of Treatment Upcoming Encounters Date Type Department Care Team (Late st Contact Info) Description 07/08/2025 9:00 AM MOTORMAN/WOMAN Lab [facility] [address] [phone] Nurse, Tracy [facility] 07/08/2025 9:30 AM MOTORMAN/WOMAN Ancillary Procedure [facility] [address] [address] 07/13/2025 8:30 AM MOTORMAN/WOMAN Office Visit [facility] [address] [address] Jenaro Green MD [address] [place], [place] [phone] documented as of this encounter Procedures Procedure Name Priority Date/Time Associated Diagnosis Comments MAGNESIUM (MG) Routine 06/22/2025 8:37 AM CDT Hypomagnesemia documented in this encounter Results * (ABNORMAL) MAGNESIUM (MG) (06/22/2025 8:37 AM CDT) Magnesium 1.5(L) 1.9 - 2.7 mg/dL [facility] Blood 06/22/2025 8:37 AM CDT Narrative [facility] - 06/22/2025 9:46 AM CDT Release to patient->Immediate Jenaro Green MD CHEMISTRY ORDERABLES Final Resul t [facility] [address] [place] [address], documented in this encounter Visit Diagnoses Diagnosis Neuroendocrine carcinoma- Primary Other malignant neoplasm without specification of site Hypomagnesemia 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
--- OUTSIDE RECORDS SUMMARY | 2025-06-22 14:31 | XMS_ITS ---
Author Organization [facility] Address [address] [place] [address] Phone Care Team Providers Care Writing Tutor Name Role Phone Jenaro Green MD Unavailable [...] Provider:Jenaro Green MD Linked Problems Neuroendocrine carcinoma Treatment Medications CARBOplatin (PARAPLATIN) chemo infusion (by AUC) etoposide chemo infusion SUPPORT - HYDRATION WITH ADDITIVES + ANTIEMETICS - CCSCI* Plan Start Date: 03/30/2025 Plan Provider:Jenaro Green MD Linked Problems Neuroendocrine carcinomaSmal l cell carcinoma metastatic to both lungs Treatment Medications Current Day (Day 1, Cycle 5 - Planned for 06/22/2025) No medications scheduled. No medications schedul ed. Past Treatment and Therapy Plans No past plan information found. Lifetime Dose Tracking * Chemical Lifetime Dose Automatic Entry Manual Entr y Carboplatin 1,684.999 mg/m2 (3,461 mg) 1,684.999 mg/m 2 (3,461 mg) 0 mg/m2 (0 mg)
--- OUTSIDE RECORDS SUMMARY | 2025-06-22 14:31 | XMS_ITS | Encounter Summary ---
Author Organization [employer] Care Team Providers Care Piping Designer Name Role Phone Jenaro Green MD Unavailable Connor Rahman MD Primary Care Provider + Encounter Details Date Type Department Care Team (Latest Contact Info) Description 06/22/2025 Travel Social History Tobacco Use Types Packs/Day Years [...] on file documented as of this encounter Plan of Treatment Upcoming Encounters Date Type Department Care Team (Late st Contact Info) Description 07/08/2025 9:00 AM POWER SHEAR OPERATOR Lab [facility] [address] [phone] Nurse, [facility] 07/08/2025 9:30 AM POWER SHEAR OPERATOR Ancillary Procedure [facility] [address] [phone] 07/13/2025 8:30 AM POWER SHEAR OPERATOR Office Visit [facility] [address] [phone] Jenaro Green MD [address] [place] [address] documented as of this encounter Visit Diagnoses Not on filedocumented in this encounter Care Teams Piping Designer Relationship Specialty Start Date End Date Connor Rahman MD [address] [place], [place] [phone] PCP - General Family Medicine 01/07/25 Jenaro Green MD [address] [place], [place] [phone] Consulting Physician Oncology 01/07/25 documented as of this encounter
--- OUTSIDE RECORDS SUMMARY | 2025-06-22 14:31 | XMS_ITS | Clinical Summary ---
Author Organization [facility] [place] [address] Address [address] [place] [address] Care Team Providers Care Automation Qa Tester Name Role Phone Connor Rahman MD Primary Care Prov ider Allergies No known active allergies Medications gabapentin (NEURONTIN) 100 mg capsule Take 100 mg by mouth 3 (three) times a day Active aspirin 81 mg chewable tabletIndicatio ns:coronary artery disease Take 1 tablet (81 mg total) by mouth daily 30 tablet 11 05/05/2022 Active rosuvastatin (CRESTOR) 40 mg tablet TAKE 1 TABLET BY MOUTH EVERY DAY 90 tablet 2 07/17/2024 Active cyclobenzaprine (FLEXERIL) 5 mg tablet Take 1 tablet (5 mg total) by mouth 2 (two) times a day 03/17/2025 Active docusate sodium (COLACE) 100 mg capsule Take 1 capsule (100 mg total) by mouth 2 (two) times a day 03/11/2025 Active magnesium oxide (MAG-OX) 400 mg (241.3 mg elemental magnesium) tablet Take 1 tablet (400 mg total) by mouth daily 02/09/2025 Active oxyCODONE-aceta minophen (PERCOCET) 10-325 mg per tablet Take 1 tablet by mouth every 6 (six) hours as needed 03/11/[address] (PROTONIX) 40 mg EC tablet Take 1 tablet (40 mg total) by mouth 12/08/2024 Active prochlorperazin e (COMPAZINE) 10 mg tablet Take 1 tablet (10 mg total) by mouth every 6 (six) hours as needed for nausea or vomiting Active Active Problems Problem Noted Date Diagnosed Date Aortic valve stenosis 01/22/2022 Overview (01/22/2022): Added automatically from request for surgery [id number] Encounters Date Type Department Care Team Description 06/09/2025 9:15 AM CDT Ancillary Procedure [facility] Medical [facility] Cardiology [address] [place] [address] S/P TAVR (transcatheter aortic valve replacement) 06/09/2025 Results Follow-Up [facility] Cardiology [address] [facility] [address] [place] [address] Felicia Lambert MD Transthoracic Echo (TTE) Complete W Doppler/CF 05/05/2025 11:45 AM CDT Office Visit [facility] Cardiology [address] [place] [address] Felicia Lambert MD S/P TAVR (transcatheter aortic valve replacement) (Primary Dx); Essential hypertension; Renal cell carcinoma of right kidney (HCC); Tobacco abuse, in remission; Need for lipid screening from Last 3 Months Surgical History Surgery [...] on file Legal Sex Male 9:09 AM [employer] Gender Identity Not on file Sexual Orientation [...] Fall Risk Assessment 05/04/2023 05/04/2022 Covid-19 Vaccine (2024-2 6 season) 2025 03/14/2022, 08/17/2021, 11/15/2020, Additional history exists Influenza Vaccine (#1) 2025 , 08/17/2021, 05/05/2020, Additional history exists DTaP/Tdap/Td Vaccine (2 - Td or Tdap) 05/05/2030 05/05/2020 Zoster Vaccine Completed 03/24/2019, 01/22/2019 Pneumococcal vaccine 65+ Completed 020, 06/02/2019, 06/09/2018 Abdominal Aortic Aneurysm (A AA) Screen Completed 05/16/2025, 03/14/2025, 03/13/2025, Additional history exists Medical Devices Implanted Type Area Fish Rod Maker Device Identifier Shelf Expiration Date Model / Serial / Lot Access [employer]osure Inc Mynx Control 6-7fr 2 Mode Balloon Catheter Sealant Lock Syringe [id number] - [id number] Implanted:Qty: 1 on 02/22/2022 by Felicia Lambert MD at [facility] [employer] 12/01/2023 [id number] / / [id number] [employer] Device Clsr Perclose Prostyle Sut-Mediatd Closure-Repair Sys 74570-25 - [id number] Implanted:Qty: 1 on 05/03/2022 by Felicia Lambert MD at [facility] [employer] [id number] / / Wat[employer] Valve Crimper [id number] - [id number] - [id number] Implanted:Qty: 1 on 05/03/2022 by Felicia Lambert MD at [facility] [employer] 01/07/2025 [id number] / [id number] / Publons Angio-Seal Vip 6fr Closere Device [id number] - [id number] Implanted:Qty: 1 on 05/03/2022 by Felicia Lambert MD at [facility] [employer] 11/30/2022 [id number] / / [id number] Access [employer]osure [employer] Mynx Control 6-7fr 2 Mode Balloon Catheter Sealant Lock Syringe [id number] - [id number] Implanted:Qty: 1 on 05/03/2022 by Felicia Lambert MD at [facility] [employer] 04/01/2023 [id number] / / [id number] Procedures Procedure Name Priority Date/Time Associated Diagnosis Comments TRANSTHORACIC ECHO (TTE) COMPLETE W DOPPLER/CF WO CONTRAST Routine 06/09/2025 10:47 AM CDT S/P TAVR (transcatheter aortic valve replacement) POCT LIPID PANEL Routine 05/05/2025 3:36 PM CDT Need for lipid screening CT ABDOMEN PELVIS W WO CONTRAST Routine 02/01/2016 8:00 AM CDT from Last 3 Months or Most Recently Relevant to Health Maintenance Results * TRANSTHORACIC ECHO (TTE) COMPLETE W DOPPLER/CF WO CONTRAST (06/09/2025 10:47 AM CDT) EF Mod BP 64 % CONS SCIMAGE Anatomical Region Laterality Modality Ultrasound 06/09/2025 9:32 AM CDT Narrative 06/09/2025 12:32 PM CDT [facility] Cardiology [address], [place] [address] [address], [place] [address] P:[phone] P:[phone] Echocardiographic Report Patient Name: JEEVAN LUEVANO L : 1950 Study Date: 06/09/2025 9:32:33 AM Sex: M Orchardist: Guera Conklin)([place]), [facility] Location: [facility] Provider: FELICIA LAMBERT Height(Cm): 183 BSA: 2.01 Weight(Kg): 79.8 Heart Rate: 54 BP: 102 / 50 Quality: Good Order Provider: FELICIA LAMBERT PROCEDURES: Echocardiographic Report: Transthoracic echocardiogram with complete 2D, M-Mode, and color Doppler examination. With Strain Analysis. INDICATIONS: Z95.2 Presence of prosthetic heart valve. MEASUREMENTS: 2D/MM Value Range Doppler Value Range EF Mod BP 64 % [ 52 - 72 ] PAULIE Vmax 1.72 cm2 [ 2.00 - 4.00 ] LV GLS -17.20 % AV Mean PG 11 mmHg LVIDd 2D 5.04 cm [ 4.20 - 5.80 ] AV Peak Louie 2.15 m/s [ 1.00 - 1.70 ] LVIDs 2D 3.41 cm [ 2.50 - 4.00 ] AV Peak PG 19 mmHg LVPWd 2D 1.06 cm [ 0.60 - 1.00 ] AV VTI 49.63 cm IVSd 2D 1.06 cm [ 0.60 - 1.00 ] LVOT Diam 2.10 cm [ 1.70 - 2.10 ] AoR Diam 2D 3.99 cm [ 3.10 - 3.70 ] LVOT Peak Louie 1.07 m/s [ 0.70 - 1.10 ] LA Volume 28.05 ml [ 18.00 - 58.00 ] LVOT VTI 26.45 cm LA Volume Index 14 cc/m2 [ 16 - 28 ] MV E Peak Louie 0.84 m/s [ 0.60 - 1.30 ] RA Volume 32.53 ml MV A Peak Louie 0.64 m/s [ 1.00 - 1.20 ] MV Decel Time 137 msec [ 104 - 258 ] PV Peak Louie 0.88 m/s [ 0.40 - 0.80 ] TR Peak Louie 2.88 m/s [ 1.00 - 2.80 ] TR Peak PG 33 mmHg RVSP 41.00 mmHg [ 10.00 - 36.00 ] RV S` 15.28 mmHg Lateral E` 0.09 m/s [ 0.10 - 0.15 ] Septal E` 0.07 m/s [ 0.08 - 0.15 ] E` 0.08 m/s E/E` 10 Tapse 2.51 cm [ 1.71 - 5.00 ] 2D/MM Value Range Doppler Value Range - FINDINGS: Interpretation Site: Exam was interpreted at [facility]. Left Ventricle: Mild concentric left ventricular hypertrophy. Left ventricle cavity is upper limits of normal in size. Normal global left ventricular systolic function. Normal left ventricular diastolic function. Ejection fraction is measured at 64 %. Global Longitudinal Strain is -17 %. Right Ventricle: Normal right ventricular size. Normal right ventricular systolic function. Left Atrium: The left atrium is normal in size. Right Atrium: The right atrium is normal in size. Atrial Septum: Normal atrial septum. Mitral Valve: Normal appearance of the mitral valve. Aortic Valve: S/P TAVR using 29 mm Watters Jacky 3 Ultra pericardial tissue valve. Peak Velocity of 2.10 m/s. Mean gradient of 11.0 mmHg. Normal appearing aortic valve prosthesis. Tricuspid Valve: Normal appearance of the tricuspid valve. Mild pulmonary hypertension based on right ventricular systolic pressure. Estimated peak RVSP is 41 mmHg. Trivial regurgitation in the tricuspid valve. Pulmonic Valve: Pulmonic valve not well visualized. Pericardium: Trivial pericardial effusion. Aorta: Sinotubular Junction 3.9 cm. Ascending Aorta 3.8 cm. Aortic root is mildly dilated. IVC: Normal size and no respiratory collapse consistent with elevated right atrial pressure (5-10 mmHg). CONCLUSIONS: Mild concentric left ventricular hypertrophy. Left ventricle cavity is upper limits of normal in size. Normal LV systolic and diastolic function. Ejection fraction is measured at 64 %. Global Longitudinal Strain is -17 %. Normal right ventricular size and systolic function. Normal appearance of the mitral valve. No significant MR. S/P TAVR using 29 mm Watters Jacky 3 Ultra pericardial tissue valve. Normal-appearing aortic valve bioprosthesis. V max 2.10 m/s. MG 11.0 mmHg. DVI 0.42. Mild pulmonary hypertension, RVSP 41 mmHg. Trivial regurgitation in the tricuspid valve. Electronically Signed By: Felicia Lambert MD, [facility] 06/09/2025 12:31:34 PM CDT Procedure Note Felicia Lambert MD - 06/09/2025 [facility] Medical [facility] Cardiology [address] [facility] [address], [place] [address] [facility] [address] [facility] [address], [place] [address] P:[phone] P:[phone] Echocardiographic Report Patient Name: JEEVAN LUEVANO L : 1950 Study Date: 06/09/2025 9:32:33 AM Sex: M Orchardist: Guera Shay ([place])([place]), [facility] Location: [facility] Provider: FELICIA LAMBERT Height(Cm): 183 BSA: 2.01 Weight(Kg): 79.8 Heart Rate: 54 BP: 102 / 50 Quality: Good Order Provider: FELICIA LAMBERT PROCEDURES: Echocardiographic Report: Transthoracic echocardiogram with complete 2D, M-Mode, and color Dopplerexamination. With Strain Analysis. INDICATIONS: Z95.2 Presence of prosthetic heart valve. MEASUREMENTS: 2D/MM Value Range Doppler ValueRange EF Mod BP 64 % [ 52 - 72 ] PAULIE Vmax 1.72cm2 [ 2.00 - 4.00 ] LV GLS -17.20 % AV Mean PG 11mmHg LVIDd 2D 5.04 cm [ 4.20 - 5.80 ] AV Peak Louie 2.15m/s [ 1.00 - 1.70 ] LVIDs 2D 3.41 cm [ 2.50 - 4.00 ] AV Peak PG 19mmHg LVPWd 2D 1.06 cm [ 0.60 - 1.00 ] AV VTI 49.63cm IVSd 2D 1.06 cm [ 0.60 - 1.00 ] LVOT Diam 2.10cm [ 1.70 - 2.10 ] AoR Diam 2D 3.99 cm [ 3.10 - 3.70 ] LVOT Peak Louie 1.07m/s [ 0.70 - 1.10 ] LA Volume 28.05 ml [ 18.00 - 58.00 ] LVOT VTI 26.45cm LA Volume Index 14 cc/m2 [ 16 - 28 ] MV E Peak Louie 0.84m/s [ 0.60 - 1.30 ] RA Volume 32.53 ml MV A Peak Louie 0.64m/s [ 1.00 - 1.20 ] MV Decel Time 137 msec [ 104 - 258 ] PV Peak Louie 0.88 m/s [ 0.40 - 0.80 ] TR Peak Louie 2.88 m/s [ 1.00 - 2.80 ] TR Peak PG 33 mmHg RVSP 41.00 mmHg [ 10.00 - 36.00 ] RV S` 15.28 mmHg Lateral E` 0.09 m/s [ 0.10 - 0.15 ] Septal E` 0.07 m/s [ 0.08 - 0.15 ] E` 0.08 m/s E/E` 10 Tapse 2.51 cm [ 1.71 - 5.00 ] 2D/MM Value Range Doppler ValueRange - FINDINGS: Interpretation Site: Exam was interpreted at [facility]. Left Ventricle: Mild concentric left ventricular hypertrophy. Left ventricle cavity isupper limits of normal in size. Normal global left ventricular systolic function. Normalleft ventricular diastolic function. Ejection fraction is measured at 64 %. GlobalLongitudinal Strain is -17 %. Right Ventricle: Normal right ventricular size. Normal right ventricular systolicfunction. Left Atrium: The left atrium is normal in size. Right Atrium: The right atrium is normal in size. Atrial Septum: Normal atrial septum. Mitral Valve: Normal appearance of the mitral valve. Aortic Valve: S/P TAVR using 29 mm Watters Jacky 3 Ultra pericardial tissue valve. Peak Velocity of 2.10 m/s. Mean gradient of 11.0 mmHg. Normal appearingaortic valve prosthesis. Tricuspid Valve: Normal appearance of the tricuspid valve. Mild pulmonary hypertensionbased on right ventricular systolic pressure. Estimated peak RVSP is 41 mmHg. Trivialregurgitation in the tricuspid valve. Pulmonic Valve: Pulmonic valve not well visualized. Pericardium: Trivial pericardial effusion. Aorta: Sinotubular Junction 3.9 cm. Ascending Aorta 3.8 cm. Aortic root is mildlydilated. IVC: Normal size and no respiratory collapse consistent with elevated rightatrial pressure (5-10 mmHg). CONCLUSIONS: Mild concentric left ventricular hypertrophy. Left ventricle cavity isupper limits of normal in size. Normal LV systolic and diastolic function. Ejectionfraction is measured at 64 %. Global Longitudinal Strain is -17 %. Normal right ventricular size and systolic function. Normal appearance of the mitral valve. No significant MR. S/P TAVR using 29 mm Watters Jacky 3 Ultra pericardial tissue valve.Normal- appearing aortic valve bioprosthesis. V max 2.10 m/s. MG 11.0 mmHg. DVI 0.42. Mild pulmonary hypertension, RVSP 41 mmHg. Trivial regurgitation in thetricuspid valve. Electronically Signed By: Felicia Lambert MD, [facility] 06/09/2025 12:31:34 PM CDT us Felicia Lambert MD CV ECHO PROCEDURES Final Result * (ABNORMAL) POCT lipid panel (05/05/2025 3:36 PM CDT) [facility] Cholesterol, POC 106 <200 MG/DL HDL, POC 39(A) >=40 mg/dL Triglycerides, POC 141 <=149 mg/dL LDL Cholesterol POC 38 <=129 mg/dL Chol/HDL Ratio, POC 1.0 NONE Non-HDL Cholesterol, POC 66 NONE mg/dL Cholesterol Total, POC 106 30 - 199 mg/dL Capillary blood 05/05/2025 3 :36 PM CDT Felicia Lambert MD POINT OF CARE TEST ORDERABLES Fi nal Result from Last 3 Months Insurance [facility] MEDICARE ADVANTAGE Care Teams Automation Qa Tester Relationship Specialty Start Date End Date Connor Rahman MD PCP - General Family Medicine 01/22/24
--- OUTSIDE RECORDS SUMMARY | 2025-06-22 14:31 | XMS_ITS | Clinical Summary ---
Author Organization [facility] Address [address] [place] [address] Phone Care Team Providers Care Poising Inspector Name Role Phone Jenaro Green MD Unavailable [...] 2 times daily. 180 Capsule 025 Active baclofen (LIORESAL) 5 MG Tablet TAKE 1 TABLET BY MOUTH 3 TIMES A DAY FOR HICCUPS, DONT TAKE WITH CYCLOBENZAPRINE 21 Tablet 025 Active cyclobenzapri ne (FLEXERIL) 5 MG Tablet TAKE 1 TABLET BY MOUTH TWICE A DAY 60 Tablet 025 Active oxyCODONE-Miki taminophen (PERCOCET) 10-325 MG TabletIndicat ions:Small cell carcinoma,Can cer associated pain Take 1 Tablet by mouth every 6 hours as needed for Moderate or more severe pain. 90 Tablet 025 Active magnesium oxide (MAG-OX) 400 MG TabletIndicat ions:Hypomagn esemia Take 1 Tablet by mouth daily. 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 Lymphadenopathy 03/09/2025 Cancer associated pain 03/09/2025 Chemotherapy induced nausea and vomiting Hypomagnesemia 03/09/2025 Neuroendocrine carcinoma 01/12/2025 Hypertension Encounters Date Type Department Care Team Description 06/22/2025 8:30 AM CDT Clinical Support [facility] [address] [phone] Nurse, [facility] [place] Neuroendocrine carcinoma (Primary Dx); Hypomagnesemia; 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 06/22/2025 Travel 06/08/2025 8:45 AM CDT Clinical Support [facility] [address] [address] Nurse, [facility] [place] Neuroendocrine carcinoma (Primary Dx); 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; Hypomagnesemia 06/08/2025 8:30 AM CDT Office Visit [facility] [address] [address] Mai Alvarenga APRN, GEAR GRINDER 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 (Primary Dx); Hypomagnesemia; Chemotherapy-induced thrombocytopenia; Antineoplastic chemotherapy induced anemia 06/08/2025 8:15 AM CDT Lab [facility] [address] [address] Nurse, [facility] 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; Cancer associated pain; Chemotherapy-induced thrombocytopenia; Metastasis to bone; Hypomagnesemia; Antineoplastic chemotherapy induced anemia 06/08/2025 Travel 06/03/2025 8:30 AM CDT Clinical Support [facility] [address] [address] Nurse, [facility] [place] Neuroendocrine carcinoma (Primary Dx); 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 06/01/2025 8:30 AM CDT Office Visit [facility] [address] [address] Mai Alvarenga APRN, GEAR GRINDER 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); Metastasis to bone (HCC); Cancer associated pain; Chemotherapy-induced thrombocytopenia; Antineoplastic chemotherapy induced anemia; Hypomagnesemia 06/01/2025 8:15 AM CDT Lab [facility] [address] [phone] Nurse, [facility] [place] Small cell carcinoma (HCC); Cancer associated pain; Anemia, unspecified type; Thrombocytopenia (HCC) 06/01/2025 Telephone [facility] [address] [address] Mai Alvarenga APRN, GEAR GRINDER 06/01/2025 Travel 05/27/2025 Refill [facility] [address] [address] Jenaro Green MD Medication Refill 05/25/2025 8:30 AM CDT Office Visit [facility] [address] [address] Jenaro Green MD Small cell carcinoma (HCC) (Primary Dx); Cancer associated pain; Anemia, unspecified type; Thrombocytopenia (HCC) 05/25/2025 8:15 AM CDT Lab [facility] [address] [address] Nurse, [facility] 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) 05/25/2025 Telephone [facility] [address] [address] Jenaro Green MD 05/25/2025 Travel 05/17/2025 Telephone [facility] [address] [address] Jenaro Green MD 05/14/2025 10:00 AM CDT Clinical Support [facility] [address] [address] Nurse, [facility] Neuroendocrine carcinoma (HCC) (Primary Dx) 05/14/2025 Refill [facility] [address] [address] Jenaro Green MD Medication Refill 05/13/2025 10:00 AM CDT Clinical Support [facility] [address] [address] Nurse, [facility] Neuroendocrine carcinoma (HCC) (Primary Dx) 05/12/2025 10:00 AM CDT Clinical Support [facility] [address] [address] Nurse, [facility] Neuroendocrine carcinoma (HCC) (Primary Dx) 05/11/2025 9:00 AM CDT Office Visit [facility] [address] [address] Mai Alvarenga, FUR GRADER, GEAR GRINDER 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); Encounter for antineoplastic chemotherapy; Antineoplastic chemotherapy induced anemia; Chemotherapy-induced thrombocytopenia; Small cell carcinoma (HCC); Cancer associated pain 05/11/2025 8:45 AM CDT Clinical Support [facility] [address] [address] Neuroendocrine carcinoma (HCC) (Primary Dx); 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) 05/11/2025 Travel 05/02/2025 Refill [facility] [address] [phone] Jenaro Green MD Medication Refill 05/02/2025 Refill [facility] [address] [address] Braden Griffith, DO Medication Refill 04/27/2025 11:00 AM CDT Office Visit [facility] [address] [address] Angelica Lee, FUR GRADER, GEAR GRINDER 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); Neuroendocrine carcinoma (HCC); Metastasis to bone (HCC); Anemia, unspecified type; Hypomagnesemia 04/27/2025 9:00 AM CDT Clinical Support [facility] [address] [address] Nurse, [facility] [place] 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); Neuroendocrine carcinoma (HCC) 04/27/2025 Travel 04/26/2025 Telephone [facility] [address] [phone] Jenaro Green MD 04/23/2025 9:30 AM CDT Clinical Support [facility] [address] [address] Nurse, [facility] [place] Neuroendocrine carcinoma (HCC) (Primary Dx) 04/22/2025 8:45 AM CDT Clinical Support [facility] [address] [address] Nurse, [facility] [place] Neuroendocrine carcinoma (HCC) (Primary Dx) 04/21/2025 8:45 AM CDT Clinical Support [facility] [address] [address] Nurse, [facility] [place] Neuroendocrine carcinoma (HCC) (Primary Dx) 04/20/2025 9:00 AM CDT Office Visit [facility] [address] [phone] Jenaro Green MD 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); Metastasis to bone (HCC); Hypomagnesemia; Anemia, unspecified type 04/20/2025 8:45 AM CDT Clinical Support [facility] [address] [address] Neuroendocrine carcinoma (HCC) (Primary Dx); 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); Metastasis to bone (HCC); Lymphadenopathy; Hypomagnesemia 04/20/2025 Telephone [facility] [address] [phone] Jenaro Green MD 04/20/2025 Travel 04/19/2025 Telephone [facility] [address] [phone] Jenaro Green MD 04/05/2025 Refill [facility] [address] [address] Jenaro Green MD Medication Refill 04/02/2025 8:45 AM CDT Clinical Support [facility] [address] [address] Neuroendocrine carcinoma (HCC) (Primary Dx) 04/01/2025 8:45 AM CDT Clinical Support [facility] [address] [address] Neuroendocrine carcinoma (HCC) (Primary Dx) 03/31/2025 8:45 AM CDT Clinical Support [facility] [address] [address] Neuroendocrine carcinoma (HCC) (Primary Dx) 03/30/2025 11:50 AM CDT Clinical Support [facility] [address] [address] Small cell carcinoma (HCC) (Primary Dx); Neuroendocrine carcinoma (HCC); 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) 03/30/2025 8:45 AM CDT Office Visit [facility] [address] [address] Jenaro Green MD Small cell carcinoma (HCC) (Primary Dx); Cancer associated pain; Metastasis to bone (HCC); 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); Hypomagnesemia 03/30/2025 Travel 03/23/2025 Refill [facility] [address] [phone] Jenaro Green MD Medication Refill from Last 3 Months Family History Relation [...] Sign Reading Time Taken Comments Blood Pressure 120/70 06/08/2025 8:28 AM CDT Pulse 61 06/08/2025 8:28 AM CDT Temperature 36.2 C (97.1 F) 06/08/2025 8:28 AM CDT Respiratory Rate 18 06/08/2025 8:28 AM CDT Oxygen Saturation 95% 06/08/2025 8:28 AM CDT Inhaled Oxygen Concentration - - Weight 84.2 kg (185 lb 9.6 oz) 06/08/2025 8:28 A M CDT Height 185.4 cm (6' 1) 06/08/2025 8:28 AM CDT Body Mass Index 24.49 06/08/2025 8:28 AM CDT Plan of Treatment Upcoming Encounters Date Type Department Care Team (Late st Contact Info) Description 07/08/2025 9:00 AM HATCH BOSS Lab [facility] [address] [phone] Nurse, [facility] 07/08/2025 9:30 AM HATCH BOSS Ancillary Procedure [facility] [address] [phone] 07/13/2025 8:30 AM HATCH BOSS Office Visit [facility] [place] [address] [place] [address] Jenaro Green MD [address] [place] [id number] Health Maintenance Due Date Last Done Comments Hepatitis C Virus (HCV) Screening 1950 Cologuard 01/22/1997 Colonoscopy 01/22/1997 Colorectal Cancer Screening 01/22/1997 Immunochemical Fecal Occult Blood 01/22/1997 Respiratory Syncytial Virus (RSV) Immunization (Adult) (1 - Risk 60-74 years 1-dose series) 2012 Welcome to Medicare (IPPE) G0402 10/03/2024 Influenza Immunization (#1) 2025 01/0 09/2023, 08/09/2023, [...] (MG) Routine 06/22/2025 8:37 AM CDT Hypomagnesemia CBC WITH AUTO DIFF OH Routine 06/08/2025 8:19 AM CDT CMP (COMPREHENSIVE METABOLIC PANEL) Routine 06/08/2025 8:19 AM CDT 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 associated pain Chemotherapy-induced thrombocytopenia Metastasis to bone Hypomagnesemia Antineoplastic chemotherapy induced anemia LACTATE DEHYDROGENASE (LD) Routine 06/08/2025 8:19 AM CDT 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 associated pain Chemotherapy-induced thrombocytopenia Metastasis to bone Hypomagnesemia Antineoplastic chemotherapy induced anemia MAGNESIUM (MG) Routine 06/08/2025 8:19 AM CDT 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 associated pain Chemotherapy-induced thrombocytopenia Metastasis to bone Hypomagnesemia Antineoplastic chemotherapy induced anemia COMPLETE BLOOD COUNT (CBC) WITH DIFF Routine 06/01/2025 8:25 AM CDT Small cell carcinoma (HCC) Cancer associated pain Anemia, unspecified type Thrombocytopenia (HCC) CMP (COMPREHENSIVE METABOLIC PANEL) Routine 06/01/2025 8:25 AM CDT Small cell carcinoma (HCC) Cancer associated pain Anemia, unspecified type Thrombocytopenia (HCC) LACTATE DEHYDROGENASE (LD) Routine 06/01/2025 8:25 AM CDT Small cell carcinoma (HCC) Cancer associated pain Anemia, unspecified type Thrombocytopenia (HCC) MAGNESIUM (MG) Routine 06/01/2025 8:25 AM CDT Small cell carcinoma (HCC) Cancer associated pain Anemia, unspecified type Thrombocytopenia (HCC) COMPLETE BLOOD COUNT (CBC) WITH DIFF Routine 05/25/2025 8:30 AM CDT 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) CMP (COMPREHENSIVE METABOLIC PANEL) Routine 05/25/2025 8:30 AM CDT 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) LACTATE DEHYDROGENASE (LD) Routine 05/25/2025 8:30 AM CDT 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) MAGNESIUM (MG) Routine 05/25/2025 8:30 AM CDT 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 Magnesium 1.5(L) 1.9 - 2.7 mg/dL [facility] Blood 06/22/2025 8:37 AM CDT Narrative [facility] - 06/22/2025 9:46 AM CDT Release to patient->Immediate us Jenaro Green MD CHEMISTRY ORDERABLES Final Resul t [facility] [place] [address], * (ABNORMAL) CBC WITH AUTO DIFF OH (06/08/2025 8:19 AM CDT) Only the most recent of2 resultswithin the time period is included. WBC 7.1 4.0 - 10.0 10*3/uL [facility] HGB 9.9(L) 13.7 - 17.5 g/dL [facility] HCT 31.2(L) 40.1 - 51.0 % [facility] PLT 154(L) 163 - 369 10*3/uL [facility] MPV 9.5 9.4 - 12.4 fL [facility] RBC 3.12(L) 4.63 - 6.08 10*6/uL [facility] MCV 100(H) 79 - 95 fL [facility] MCH 31.7 25.6 - 32.2 pg [facility] MCHC 31.7(L) 32.2 - 36.5 g/dL [facility] RDW 17.2(H) 11.6 - 14.4 % [facility] Neutrophils % 69.2(H) 36.0 - 66.0 % [facility] Lymphocytes % 14.6(L) 19.0 - 40.0 % [facility] Monocytes % 13.9(H) 4.1 - 12.1 % [facility] Eosinophils % 0.7 0.0 - 3.5 % [facility] Basophils % 0.8 0.0 - 1.0 % [facility] [place] Absolute Neutrophils 4.9 1.4 - 6.6 10*3/uL [facility] Absolute Lymphocytes 1.0 0.8 - 4.0 10*3/uL [facility] Absolute Monocytes 1.0 0.2 - 1.2 10*3/uL [facility] Absolute Eosinophils 0.1 0.0 - 0.4 10*3/uL [facility] Absolute Basophils 0.1 0.0 - 0.1 10*3/uL [facility] 06/08/2025 8:19 AM CDT Mai Alvarenga APRN, CNP LAB SEND OUTS Final Result Performing Organization Address City/[facility] Co de Phone Number [facility] [place] [address], [place] [phone] * LACTATE DEHYDROGENASE (LD) (06/08/2025 8:19 AM CDT) Only the most recent of3 resultswithin the time period is included. LDH 212 140 - 271 U/L [facility] Blood 06/08/2025 8:19 AM CDT Narrative [facility] - 06/08/2025 9:15 AM CDT Release to patient->Immediate Mai Alvarenga APRN, CNP CHEMISTRY ORDERABLES Final Result Performing Organization Address City/[facility] Co de Phone Number [facility] [place] [address], [place] [phone] * (ABNORMAL) CMP (COMPREHENSIVE METABOLIC PANEL) (06/08/2025 8:19 AM CDT) Only the most recent of7 resultswithin the time period is included. Glucose 106(H) 70 - 105 mg/dL [facility] Blood Urea Nitrogen 12 7 - 25 mg/dL [facility] Creatinine 0.7 0.7 - 1.3 mg/dL [facility] Sodium 135(L) 136 - 145 mEq/L [facility] Potassium 4.3 3.5 - 5.1 mEq/L [facility] Chloride 98 98 - 107 mEq/L [facility] Bicarbonate 30 21 - 31 mEq/L [facility] Total Bilirubin 0.3 0.3 - 1.0 mg/dL [facility] Alk. Phosphatase 140(H) 34 - 104 U/L [facility] Aspartate Aminotransferase 30 13 - 39 U/L [facility] Alanine Aminotransferase 41 7 - 52 U/L [facility] Total Protein 7.3 6.4 - 8.9 g/dL [facility] Albumin 4.2 3.5 - 5.7 g/dL [facility] Calcium 9.9 8.6 - 10.3 mg/dL [facility] Anion Gap 11.3 7.0 - 15.0 mEq/L [facility] Globulin 3.1 2.0 - 3.5 g/dL [facility] EGFR 97 >60 ml/min/1. 73m2 [facility] Comment: This eGFR is calculated using 2020 CKD-EPI Creatinine equation without race modifier based on the NKF-ASN task force recommendations Equation: vYEY=767*min(SCr/k,1)a*max(SCr/k,1)-1.200*0.9938Age*1.012 (if female), where SCr is serum creatinine, k is 0.7 for females and 0.9 for males, and a is -0.241 for females and -0.302 for males Blood 06/08/2025 8:19 AM CDT Narrative [facility] - 06/08/2025 9:15 AM CDT Release to patient->Immediate IS THE PATIENT REQUIRED TO BE FASTING FOR 8 HOURS?->No us Mai Alvarenga FUR GRADER, GEAR GRINDER CHEMISTRY ORDERABLES Final Result [facility] [place] [address], * (ABNORMAL) COMPLETE BLOOD COUNT (CBC) WITH DIFF (06/01/2025 8:25 AM CDT) Only the most recent of5 resultswithin the time period is included. WBC 8.7 4.0 - 10.0 10*3/uL [facility] HGB 8.8(L) 13.7 - 17.5 g/dL [facility] HCT 27.8(L) 40.1 - 51.0 % [facility]IAL [facility]NA[facility] PLT 35(L) 163 - 369 10*3/uL [facility] MPV 11.4 9.4 - 12.4 fL [facility] RBC 2.82(L) 4.63 - 6.08 10*6/uL [facility] MCV 99(H) 79 - 95 fL [facility] MCH 31.2 25.6 - 32.2 pg [facility] MCHC 31.7(L) 32.2 - 36.5 g/dL [facility] RDW 16.0(H) 11.6 - 14.4 % [facility] Absolute Neutrophil Count 7,254 cells/uL [facility] Absolute Seg Count 7,254(H) 1,440 - 6,600 cells/uL [facility] Absolute Lymph Count 1,049 760 - 4,000 cells/uL [facility] Absolute Bee Count 350 160 - 1,200 cells/uL [facility] Absolute Eos Count 87 0 - 300 cells/uL [facility] Segmented Neutrophils 83(H) 36 - 66 % [facility] Lymphocytes 12(L) 19 - 40 % [facility]TER [facility] Monocytes 4 4 - 12 % [facility]ITH[facility] Eosinophils 1 0 - 3 % [facility] WBC Estimate Normal [facility] Platelet Estimate Low [facility] RBC Morphology Abnormal CANCE R EDITORIAL MANAGER [facility] Macrocytosis 1+ [facility] Anisocytosis 1+ [facility] Blood 06/01/2025 8:25 AM CDT Narrative [facility] - 06/01/2025 10:48 AM CDT Release to patient->Immediate Jenaro Green MD HEMATOLOGY ORDERABLES Final Resu lt [facility] [place] [address], [place] [phone] from Last 3 Months Insurance MEDICARE [facility] Care Teams Poising Inspector Relationship Specialty Start Date End Date Connor Rahman MD [address] [place] [address] PCP - General Family Medicine 01/07/25 Jenaro Green MD [address] [place] [id number] Consulting Physician Oncology 01/07/25
--- OUTSIDE RECORDS SUMMARY | 2025-06-22 14:31 | XMS_ITS | Clinical Summary ---
Author Organization [facility] Address [address] [place] [address] Care Team Providers Care Mis Specialist Name Role Phone Connor Rahman MD Primary Care Provider + Source Comments [facility],non-owned Affiliates and Associated Physician Practices is amultiple site organization consisting of ambulatory clinics and hospital sitesin [place], [place], [place] and [place]. This disclosure is being madepursuant to the Care Everywhere program and may not contain all information available regarding this patient. Last updated 18.[facility] Allergies No known active allergies Medications * [...] Orders Only [facility] [address] [place] [address], [place] [address] Marshal Mendosa MD Closed nondisplaced fracture of first cervical vertebra, unspecified fracture morphology, initial encounter ([facility]) ; Closed wedge compression fracture of T5 vertebra, initial encounter ([facility]) 03/25/2025 Travel from Last 3 Months Social History [...] Additional history exists INFLUENZA VACCINE (#1) 2025 , 07/18/2022, 08/17/2021, Additional history exists HEPATITIS B [...] on patient's age to complete [place] [address] [employer] MANAGED MEDICARE ADV Care Teams Mis Specialist Relationship Specialty Start Date End Date Connor Rahman MD [address] [place] [id number] PCP - General Family Medicine 03/13/25
--- OUTSIDE RECORDS SUMMARY | 2025-06-22 14:31 | XMS_ITS | Encounter Summary ---
Author Organization [facility] Address [address] [place] [address] Care Team Providers Care Production Illustrator Name Role Phone Connor Rahman MD Primary Care Prov ider Encounter Details Date Type Department Care Team (Latest Contact Info) Description 06/09/2025 Results Follow-Up [facility] Medical Group Cardiology [address], [place] [address] Rafael Londono MD [address] [facility] [address] [place], [place] [id number] Transthoracic Echo (TTE) Complete W Doppler/CF Social History Tobacco Use Types Packs/Day Years Used Date Smoking Tobacco: Former Cigarettes Q uit: 2016 Smokeless Tobacco: Former Chew Quit: 1988 Alcohol Use Standard Drinks/Week Comments No 0 [...] on file Legal Sex Male 9:09 AM CHIP PERSON Gender Identity Not on file Sexual Orientation Not on file documented as of this encounter Plan of Treatment Not on file documented as of this encounter Visit Diagnoses Not on filedocumented in this encounter Care Teams Production Illustrator Relationship Specialty Start Date End Date Connor Rahman MD PCP - General Family Medicine 01/22/24 documented as of this encounter
== END 2025-06-22 11:36 | disposition home or self-care (01) ==
PROVIDERS: PCP Family Medicine; Visit Provider Nurse Practitioner Adult Health
DX: R29.890 Loss of height (principal); M84.48XA Pathological fracture, other site, initial encounter for fracture
CPT/HCPCS: 72040